=== PATIENT | female | born 1985 | race Caucasian/White ===

== ENCOUNTER 2025-01-09 16:52 | Observation (INO) | payer BC, SELFPAY ==
--- NOTE | ~2025-01-09 | XR_ITS ---
XR chest 1V portable Ordering provider: Marsha Rashid PA-C History: 39 years Female with . n/v/d, cp . Comparison: None. FINDINGS: MEDIASTINUM: The cardiac silhouette is not enlarged. LUNGS: No infiltrates, effusions or pneumothorax. OTHER: No free air under the diaphragm. IMPRESSION: No acute cardiopulmonary pathology. Reviewed, dictated and finalized at location A.
--- NOTE | ~2025-01-09 | CT_ITS ---
CT abdomen pelvis w con Ordering provider: Marsha Rashid PA-C History: 39 years Female with . lower abd pain, n/v/d . Comparison: None. Technique: CT abdomen and pelvis with IV and without oral contrast. Automated exposure control and it erative reconstruction technique were employed. The dose-length product was 1590.05 mGy-cm. 100 mL Om nipaque 350 was given IV Findings: VISUALIZED LOWER CHEST: Normal. UPPER ABDOMINAL ORGANS: Liver: Fat infiltration. Hepatomegaly. Gallbladder: Status post cholecystectomy Spleen: Normal. Stomach/duodenum: Normal. Pancreas: Normal. Adrenals: Normal. Kidneys: Normal. PELVIC ORGANS: The bladder is underfilled. BOWEL AND MESENTERY: Colon: No evidence of diverticulitis.. Normal appendix. Small Bowel: Normal. No obstruction. Peritoneum/mesentery: No free air or free fluid. No mesenteric lymphadenopathy. Small mesenteric lymp h nodes noted. RETROPERITONEUM: Normal aorta. No retroperitoneal lymphadenopathy. MUSCULOSKELETAL: Superficial soft tissues: The superficial soft tissues are normal. Bones: Normal spine. IMPRESSION: 1. No evidence of appendicitis, diverticulitis or intestinal obstruction. 2. Fat infiltration of the liver. Hepatomegaly. Reviewed, dictated and finalized at location A.
[2025-01-09 17:10] VITALS: BP 157/130; PULSE 112; RESP 25; TEMP 36.3; O2SAT 100
--- NOTE | 2025-01-09 17:14 | ECG_ITS ---
Test Date: 2025-01-09 17:24:42 Measurements Intervals [place] Rate: 100 P: 20 MT: 155 QRS: 20 QRSD: 89 T: 47 QT: 349 QTc: 452 Interpretive Statements SINUS TACHYCARDIA POSSIBLE LEFT ATRIAL ENLARGEMENT LOW QRS VOLTAGE IN PRECORDIAL LEADS BORDERLINE R WAVE PROGRESSION, ANTERIOR LEADS BORDERLINE ST ABNORMALITY- ANTEROLAT/INF LEADS BASELINE ARTIFACT- II, III, AVR, AVL, AVF, V2-V4 BORDERLINE ECG No previous ECG available for comparison Electronically Signed On 01-09-2025 19:53:56 CDT by Brendan Roy D.O.
--- NOTE | 2025-01-09 17:26 | ED.NAVMDI ---
HPI - Nausea/Vomiting/Diarrhea General Chief complaint: Nausea/Vomiting/Diarrhea <DANICA De Leon Last Filed: 01/09/25 21:58> Stated complaint: N / V <DANICA De Leon Last Filed: 01/09/25 21:58> Time Seen by Provider: 01/09/25 16:57 <DANICA De Leon Last Filed: 01/09/25 21:58> Source: patient <DANICA De Leon Last Filed: 01/09/25 21:58> Mode of arrival: EMS <DANICA De Leon Last Filed: 01/09/25 21:58> Limitations: no limitations <DANICA De Leon Last Filed: 01/09/25 21:58> History of Present Illness HPI Narrative: Patient is a 39-year-old female, past medical history of hypertension, POTS, who presents the ED via EMS with report of nausea, vomiting, diarrhea. Patient reports she was drinking a coffee from [employer] this afternoon when she suddenly began having nausea, vomiting, diarrhea around 2:00 p.m.. Has had multiple episodes of both. Reports lower abdominal pain, diaphoresis. Began complaining of chest pain upon arrival to the ED. Denies shortness of breath. Denies fevers, sick contacts. States her son has been sick with respiratory symptoms. Patient had influenza 2 weeks ago. <DANICA De Leon Last Filed: 01/09/25 21:58> Related Data Allergies/Adverse reactions: Allergies Allergy/AdvReac Type Severity Reaction Status Date / Time ketorolac (From Toradol) Allergy Hives Verified 01/09/25 20:36 <DANICA De Leon Last Filed: 01/09/25 21:58> Review of Systems Review of Systems: All systems reviewed & are unremarkable except as noted in HPI. <DANICA De Leon Last Filed: 01/09/25 21:58> All systems reviewed & are unremarkable except as noted in HPI and below <DANICA De Leon Last Filed: 01/09/25 21:58> Exam Narrative: GENERAL: Ill-appearing, morbidly obese with BMI of 42.0, in mild acute distress. Actively vomiting on exam. HEAD: Normocephalic, atraumatic. RESPIRATORY: Airway patent, respirations nonlabored. Clear to auscultation bilaterally, no rales, rhonchi, wheezing. CARDIOVASCULAR: Regular rate and rhythm without murmurs, rubs, or gallops. ABDOMINAL: Soft, mild diffuse tenderness throughout lower abdomen, epigastric region. No rebound. Nondistended. Normoactive BS. MUSCULOSKELETAL: Moves all extremities. No gross deformities. SKIN: Warm, dry, mildly diaphoretic NEURO: A&O X3. Speech clear. Cranial nerves II-XII grossly intact. Steady gait. No ataxic movements. PSYCHIATRIC: Appropriate mood and affect. Normal interaction. <DANICA De Leon Last Filed: 01/09/25 21:58> Course PULP AND PAPER TESTER/PA Physician Supervision I agree with midlevel documentation; I performed the medical decision making component of this evaluation. <Paulina Tejada MD - Last Filed: 01/09/25 21:28> Vital Signs Vital signs: Vital Signs Temperature 97.4 F L 01/09/25 17:10 Pulse Rate 112 H 01/09/25 17:10 Respiratory Rate 25 H 01/09/25 17:10 Blood Pressure 157/130 H 01/09/25 17:10 Pulse Oximetry 100 01/09/25 17:10 Oxygen Delivery Room Air 01/09/25 17:10 Temperature 97.4 F L 01/09/25 17:10 Pulse Rate 99 01/09/25 20:01 Respiratory Rate 20 01/09/25 20:01 Blood Pressure 143/93 H 01/09/25 20:01 Pulse Oximetry 97 01/09/25 20:01 Oxygen Delivery Room Air 01/09/25 17:10 <Marsha Rashid PA-C - Last Filed: 01/09/25 21:58> Vital Signs Temperature 97.4 F L 01/09/25 17:10 Pulse Rate 112 H 01/09/25 17:10 Respiratory Rate 25 H 01/09/25 17:10 Blood Pressure 157/130 H 01/09/25 17:10 Pulse Oximetry 100 01/09/25 17:10 Oxygen Delivery Room Air 01/09/25 17:10 Temperature 97.4 F L 01/09/25 17:10 Pulse Rate 99 01/09/25 20:01 Respiratory Rate 20 01/09/25 20:01 Blood Pressure 143/93 H 01/09/25 20:01 Pulse Oximetry 97 01/09/25 20:01 Oxygen Delivery Room Air 01/09/25 17:10 <Paulina Tejada MD - Last Filed: 01/09/25 21:28> MDM - Nausea/Vomiting/Diarrhea MDM Narrative Medical decision making narrative: Patient presented to ED with sudden onset of nausea, vomiting, diarrhea that began this afternoon. Patient actively vomiting upon my exam. Tachycardic, tachypneic. Afebrile. Oxygen stable on room air. Fluids initiated. Zofran ordered. EKG with some nonspecific ST changes, minimal ST depression. No STEMI. Baseline troponin undetectable. Cbc with white blood cell count of 29.1. 80% neutrophils, 4% bands. Likely in part hemoconcentrated with elevated hemoglobin, thrombocytosis. CMP with evidence of dehydration, bicarb 12, anion gap of 24. Kidney function is stable. Blood glucose 190. Lactic acid elevated to 4.7. Fluids are ongoing. Magnesium was borderline, given IV replacement. Alk phos mildly elevated, LFTs overwise WNL. Normal lipase. C diff testing resulted negative. Stool culture was obtained and pending. Viral swabs negative. Chest x-ray was clear. CT scan of abdomen/pelvis was obtained and without acute abnormality. Suspicious for gastroenteritis picture. Given severity of dehydration with ongoing nausea, inability to keep down food or drink, will admit for further evaluation and hydration. Continuous fluids started. Discussed case with Dr. Lemons, hospitalist, accepted patient for admission. Patient in agreement with plan and admission. <Marsha Rashid PA-C - Last Filed: 01/09/25 21:58> Medical Records Attestation: I reviewed the patient's medical records. <Marsha Rashid PA-C - Last Filed: 01/09/25 21:58> Lab Data Attestation: I reviewed the patient's lab results. <Marsha Rashid PA-C - Last Filed: 01/09/25 21:58> Result diagrams: 01/09/25 17:37 01/09/25 20:44 <Marsha Rashid PA-C - Last Filed: 01/09/25 21:58> Labs: Lab Results 01/09/25 01/09/25 01/09/25 Range/Units 17:37 18:04 18:40 WBC 29.1 H (4.5-10.0) K/mm3 RBC 6.21 H (4.2-5.4) M/mm3 Hgb 17.2 H (12.0-15.0) g/dL Hct 53.3 H (37.0-47.0) % MCV 85.8 (80-100) fl MCH 27.7 (26-34) pg MCHC 32.3 (32-36) g/dl RDW 13.5 (11.5-14.5) % Plt Count 417 H (150-375) k/mm3 MPV 9.4 (7.4-10.4) fl Immature Gran % (Auto) Not Reportable Neut % (Auto) Not Reportable Lymph % (Auto) Not Reportable [place] % (Auto) Not Reportable Eos % (Auto) Not Reportable Baso % (Auto) Not Reportable Lymph # (Auto) Not Reportable [place] # (Auto) Not Reportable Eos # (Auto) Not Reportable Baso # (Auto) Not Reportable Abs Immat Gran (auto) Not Reportable Absolute Neuts (auto) Not Reportable Absolute Nucleated RBC Not Reportable Total Counted 100 Neutrophils % (Manual) 80 H (46-73) % Band Neutrophils % 4 (0-6) % Lymphocytes % (Manual) 12.0 L (18-44) % Monocytes % (Manual) 1 L (3-9) % Eosinophils % (Manual) 2 (0-4) % Basophils % (Manual) 1 (0-1) % Nucleated RBC % Not Reportable Abs Neuts (Manual) 24.44 H (1.7-7.2) K/mm3 Abs Lymphs (Manual) 3.49 (1.1-4.5) K/mm3 Abs Monocytes (Manual) 0.29 (0.1-0.90) K/mm3 Absolute Eos (Manual) 0.58 H (0.02-0.50) K/mm3 Abs Basophils (Manual) 0.29 H (0.0-0.1) K/mm3 Platelet Estimate Increased (Adequate) Schistocytes None seen Sodium 138 (137-145) mmol/L Potassium 3.8 (3.4-5.0) mmol/L Chloride 102 (98-107) mmol/L Carbon Dioxide 12 L (22-30) mmol/L Anion Gap 24 H (4-12) mmol/L BUN 23 H (7-17) mg/dL Creatinine 0.81 (0.7-1.0) mg/dL Estim Creat Clear Calc 118 ml/min Estimated GFR > 60 (59 - ) Glucose 190 H (65-110) mg/dL Lactic Acid 4.7 H* (0.7-2.0) mmol/L Calcium 10.1 (8.4-10.2) mg/dL Magnesium 1.8 (1.6-2.3) mg/dL Total Bilirubin 0.7 (0.2-1.3) mg/dL AST 28 (14-36) U/L ALT 37 H (6-35) U/L Alkaline Phosphatase 155 H (38-126) U/L Troponin I < 0.012 (0.000-0.034) ng/mL Total Protein 9.0 H (6.3-8.2) g/dL Albumin 5.2 H (3.5-5.1) g/dL Lipase 71 (23-300) U/L Urine Color Dark yellow (Yellow) Urine Appearance Cloudy H (Clear) Urine pH 5.5 (5.0-9.0) Ur Specific [place] 1.031 (1.001-1.035) Urine Protein 3+ H (Negative) mg/dL Urine Glucose (UA) Negative (Negative) mg/dL Urine Ketones 2+ H (Negative) mg/dL Ur Blood (Man) Negative (Negative) Urine Nitrate Negative (Negative) Urine Bilirubin Negative (Negative) Urine Urobilinogen 1.0 (<2.0) mg/dL Add Ur Microanalysis Reviewed Leukocyte Esterase Rfl Negative (Negative) IQRA/UL Urine RBC 3-5 H (0-2) /hpf Urine WBC 0-5 (0-3) /hpf Ur Squamous Epith Cells Few (Few) /hpf Urine Bacteria None seen /hpf Urine Casts 6-10 POC Urine HCG, Qual Negative (Negative) C. difficile (PCR) Negative (NEGATIVE) Influenza A (RT-PCR) Negative (Negative) Influenza B (RT-PCR) Negative (Negative) RSV (RT-PCR) Negative (Negative) SARS-CoV-2 RNA (RT-PCR) Negative (Negative) 01/09/25 Range/Units 20:44 WBC (4.5-10.0) K/mm3 RBC (4.2-5.4) M/mm3 Hgb (12.0-15.0) g/dL Hct (37.0-47.0) % MCV (80-100) fl MCH (26-34) pg MCHC (32-36) g/dl RDW (11.5-14.5) % Plt Count (150-375) k/mm3 MPV (7.4-10.4) fl Immature Gran % (Auto) Neut % (Auto) Lymph % (Auto) [place] % (Auto) Eos % (Auto) Baso % (Auto) Lymph # (Auto) [place] # (Auto) Eos # (Auto) Baso # (Auto) Abs Immat Gran (auto) Absolute Neuts (auto) Absolute Nucleated RBC Total Counted Neutrophils % (Manual) (46-73) % Band Neutrophils % (0-6) % Lymphocytes % (Manual) (18-44) % Monocytes % (Manual) (3-9) % Eosinophils % (Manual) (0-4) % Basophils % (Manual) (0-1) % Nucleated RBC % Abs Neuts (Manual) (1.7-7.2) K/mm3 Abs Lymphs (Manual) (1.1-4.5) K/mm3 Abs Monocytes (Manual) (0.1-0.90) K/mm3 Absolute Eos (Manual) (0.02-0.50) K/mm3 Abs Basophils (Manual) (0.0-0.1) K/mm3 Platelet Estimate (Adequate) Schistocytes Sodium 136 L (137-145) mmol/L Potassium 4.1 (3.4-5.0) mmol/L Chloride 106 (98-107) mmol/L Carbon Dioxide 16 L (22-30) mmol/L Anion Gap 14 H (4-12) mmol/L BUN 23 H (7-17) mg/dL Creatinine 0.61 L (0.7-1.0) mg/dL Estim Creat Clear Calc 154 ml/min Estimated GFR > 60 (59 - ) Glucose 99 (65-110) mg/dL Lactic Acid 2.4 H (0.7-2.0) mmol/L Calcium 8.7 (8.4-10.2) mg/dL Magnesium (1.6-2.3) mg/dL Total Bilirubin (0.2-1.3) mg/dL AST (14-36) U/L ALT (6-35) U/L Alkaline Phosphatase (38-126) U/L Troponin I (0.000-0.034) ng/mL Total Protein (6.3-8.2) g/dL Albumin (3.5-5.1) g/dL Lipase (23-300) U/L Urine Color (Yellow) Urine Appearance (Clear) Urine pH (5.0-9.0) Ur Specific [place] (1.001-1.035) Urine Protein (Negative) mg/dL Urine Glucose (UA) (Negative) mg/dL Urine Ketones (Negative) mg/dL Ur Blood (Man) (Negative) Urine Nitrate (Negative) Urine Bilirubin (Negative) Urine Urobilinogen (<2.0) mg/dL Add Ur Microanalysis Leukocyte Esterase Rfl (Negative) IQRA/UL Urine RBC (0-2) /hpf Urine WBC (0-3) /hpf Ur Squamous Epith Cells (Few) /hpf Urine Bacteria /hpf Urine Casts POC Urine HCG, Qual (Negative) C. difficile (PCR) (NEGATIVE) Influenza A (RT-PCR) (Negative) Influenza B (RT-PCR) (Negative) RSV (RT-PCR) (Negative) SARS-CoV-2 RNA (RT-PCR) (Negative) <Marsha Rashid PA-C - Last Filed: 01/09/25 21:58> Lab Results 01/09/25 01/09/25 01/09/25 Range/Units 17:37 18:04 18:40 WBC 29.1 H (4.5-10.0) K/mm3 RBC 6.21 H (4.2-5.4) M/mm3 Hgb 17.2 H (12.0-15.0) g/dL Hct 53.3 H (37.0-47.0) % MCV 85.8 (80-100) fl MCH 27.7 (26-34) pg MCHC 32.3 (32-36) g/dl RDW 13.5 (11.5-14.5) % Plt Count 417 H (150-375) k/mm3 MPV 9.4 (7.4-10.4) fl Immature Gran % (Auto) Not Reportable Neut % (Auto) Not Reportable Lymph % (Auto) Not Reportable [place] % (Auto) Not Reportable Eos % (Auto) Not Reportable Baso % (Auto) Not Reportable Lymph # (Auto) Not Reportable [place] # (Auto) Not Reportable Eos # (Auto) Not Reportable Baso # (Auto) Not Reportable Abs Immat Gran (auto) Not Reportable Absolute Neuts (auto) Not Reportable Absolute Nucleated RBC Not Reportable Total Counted 100 Neutrophils % (Manual) 80 H (46-73) % Band Neutrophils % 4 (0-6) % Lymphocytes % (Manual) 12.0 L (18-44) % Monocytes % (Manual) 1 L (3-9) % Eosinophils % (Manual) 2 (0-4) % Basophils % (Manual) 1 (0-1) % Nucleated RBC % Not Reportable Abs Neuts (Manual) 24.44 H (1.7-7.2) K/mm3 Abs Lymphs (Manual) 3.49 (1.1-4.5) K/mm3 Abs Monocytes (Manual) 0.29 (0.1-0.90) K/mm3 Absolute Eos (Manual) 0.58 H (0.02-0.50) K/mm3 Abs Basophils (Manual) 0.29 H (0.0-0.1) K/mm3 Platelet Estimate Increased (Adequate) Schistocytes None seen Sodium 138 (137-145) mmol/L Potassium 3.8 (3.4-5.0) mmol/L Chloride 102 (98-107) mmol/L Carbon Dioxide 12 L (22-30) mmol/L Anion Gap 24 H (4-12) mmol/L BUN 23 H (7-17) mg/dL Creatinine 0.81 (0.7-1.0) mg/dL Estim Creat Clear Calc 118 ml/min Estimated GFR > 60 (59 - ) Glucose 190 H (65-110) mg/dL Lactic Acid 4.7 H* (0.7-2.0) mmol/L Calcium 10.1 (8.4-10.2) mg/dL Magnesium 1.8 (1.6-2.3) mg/dL Total Bilirubin 0.7 (0.2-1.3) mg/dL AST 28 (14-36) U/L ALT 37 H (6-35) U/L Alkaline Phosphatase 155 H (38-126) U/L Troponin I < 0.012 (0.000-0.034) ng/mL Total Protein 9.0 H (6.3-8.2) g/dL Albumin 5.2 H (3.5-5.1) g/dL Lipase 71 (23-300) U/L Urine Color Dark yellow (Yellow) Urine Appearance Cloudy H (Clear) Urine pH 5.5 (5.0-9.0) Ur Specific [place] 1.031 (1.001-1.035) Urine Protein 3+ H (Negative) mg/dL Urine Glucose (UA) Negative (Negative) mg/dL Urine Ketones 2+ H (Negative) mg/dL Ur Blood (Man) Negative (Negative) Urine Nitrate Negative (Negative) Urine Bilirubin Negative (Negative) Urine Urobilinogen 1.0 (<2.0) mg/dL Add Ur Microanalysis Reviewed Leukocyte Esterase Rfl Negative (Negative) IQRA/UL Urine RBC 3-5 H (0-2) /hpf Urine WBC 0-5 (0-3) /hpf Ur Squamous Epith Cells Few (Few) /hpf Urine Bacteria None seen /hpf Urine Casts 6-10 POC Urine HCG, Qual Negative (Negative) C. difficile (PCR) Negative (NEGATIVE) Influenza A (RT-PCR) Negative (Negative) Influenza B (RT-PCR) Negative (Negative) RSV (RT-PCR) Negative (Negative) SARS-CoV-2 RNA (RT-PCR) Negative (Negative) 01/09/25 Range/Units 20:44 WBC (4.5-10.0) K/mm3 RBC (4.2-5.4) M/mm3 Hgb (12.0-15.0) g/dL Hct (37.0-47.0) % MCV (80-100) fl MCH (26-34) pg MCHC (32-36) g/dl RDW (11.5-14.5) % Plt Count (150-375) k/mm3 MPV (7.4-10.4) fl Immature Gran % (Auto) Neut % (Auto) Lymph % (Auto) [place] % (Auto) Eos % (Auto) Baso % (Auto) Lymph # (Auto) [place] # (Auto) Eos # (Auto) Baso # (Auto) Abs Immat Gran (auto) Absolute Neuts (auto) Absolute Nucleated RBC Total Counted Neutrophils % (Manual) (46-73) % Band Neutrophils % (0-6) % Lymphocytes % (Manual) (18-44) % Monocytes % (Manual) (3-9) % Eosinophils % (Manual) (0-4) % Basophils % (Manual) (0-1) % Nucleated RBC % Abs Neuts (Manual) (1.7-7.2) K/mm3 Abs Lymphs (Manual) (1.1-4.5) K/mm3 Abs Monocytes (Manual) (0.1-0.90) K/mm3 Absolute Eos (Manual) (0.02-0.50) K/mm3 Abs Basophils (Manual) (0.0-0.1) K/mm3 Platelet Estimate (Adequate) Schistocytes Sodium 136 L (137-145) mmol/L Potassium 4.1 (3.4-5.0) mmol/L Chloride 106 (98-107) mmol/L Carbon Dioxide 16 L (22-30) mmol/L Anion Gap 14 H (4-12) mmol/L BUN 23 H (7-17) mg/dL Creatinine 0.61 L (0.7-1.0) mg/dL Estim Creat Clear Calc 154 ml/min Estimated GFR > 60 (59 - ) Glucose 99 (65-110) mg/dL Lactic Acid 2.4 H (0.7-2.0) mmol/L Calcium 8.7 (8.4-10.2) mg/dL Magnesium (1.6-2.3) mg/dL Total Bilirubin (0.2-1.3) mg/dL AST (14-36) U/L ALT (6-35) U/L Alkaline Phosphatase (38-126) U/L Troponin I (0.000-0.034) ng/mL Total Protein (6.3-8.2) g/dL Albumin (3.5-5.1) g/dL Lipase (23-300) U/L Urine Color (Yellow) Urine Appearance (Clear) Urine pH (5.0-9.0) Ur Specific [place] (1.001-1.035) Urine Protein (Negative) mg/dL Urine Glucose (UA) (Negative) mg/dL Urine Ketones (Negative) mg/dL Ur Blood (Man) (Negative) Urine Nitrate (Negative) Urine Bilirubin (Negative) Urine Urobilinogen (<2.0) mg/dL Add Ur Microanalysis Leukocyte Esterase Rfl (Negative) IQRA/UL Urine RBC (0-2) /hpf Urine WBC (0-3) /hpf Ur Squamous Epith Cells (Few) /hpf Urine Bacteria /hpf Urine Casts POC Urine HCG, Qual (Negative) C. difficile (PCR) (NEGATIVE) Influenza A (RT-PCR) (Negative) Influenza B (RT-PCR) (Negative) RSV (RT-PCR) (Negative) SARS-CoV-2 RNA (RT-PCR) (Negative) <Paulina Tejada MD - Last Filed: 01/09/25 21:28> Imaging Data Attestation: I personally reviewed and interpreted this imaging study as follows: <Marsha Rashid PA-C - Last Filed: 01/09/25 21:58> Radiologist's impression: ITS Impressions Chest X-Ray 01/09/25 17:50 IMPRESSION: No acute cardiopulmonary pathology. Abdomen/Pelvis CT 01/09/25 20:12 IMPRESSION: 1. No evidence of appendicitis, diverticulitis or intestinal obstruction. 2. Fat infiltration of the liver. Hepatomegaly. <Marsha Rashid PA-C - Last Filed: 01/09/25 21:58> ECG Data EKG #1: Attestation: I personally reviewed and interpreted this ECG as follows: <Marsha Rashid PA-C - Last Filed: 01/09/25 21:58> ECG completion date: 01/09/25 <DANICA De Leon Last Filed: 01/09/25 21:58> ECG completion time: 17:24 <DANICA De Leon Last Filed: 01/09/25 21:58> EKG Interpretation: tachycardia (100), sinus rhythm and non-specific ST changes <Marsha Rashid PA-C - Last Filed: 01/09/25 21:58> Discharge Plan Discharge Clinical Impression: Gastroenteritis, Dehydration, Lactic acidosis Nausea and vomiting Qualifiers: Vomiting type: unspecified Qualified Code(s): R11.2 - Nausea with vomiting, unspecified Leukocytosis Qualifiers: Leukocytosis type: unspecified Qualified Code(s): D72.829 - Elevated white blood cell count, unspecified <Marsha Rashid PA-C - Last Filed: 01/09/25 21:58> Patient Disposition: Still a Patient <DANICA De Leon Last Filed: 01/09/25 21:58> Condition: Stable <DANICA De Leon Last Filed: 01/09/25 21:58>
[2025-01-09] MEDS: FAMOTIDINE 20 MG/2 ML VIAL IV PUSH (17:36)
[2025-01-09] MEDS: ONDANSETRON INJ 4 MG/2 ML VIAL IV PUSH ×2 (17:37→20:56)
[2025-01-09] MEDS: SODIUM CHLORIDE 0.9% IV 1,000 ML 999 ML IV CONT ×2 (17:37→18:37)
[2025-01-09 17:46] LABS: Hematocrit 53.3 % (37.0-47.0); Hemoglobin 17.2 g/dL (12.0-15.0); Mean Corpuscular HGB Conc 32.3 g/dl (32-36); Mean Corpuscular Hemoglobin 27.7 pg (26-34); Mean Corpuscular Volume 85.8 fl (80-100); Mean Platelet Volume 9.4 fl (7.4-10.4); Platelet Count Result 417 k/mm3 (150-375); Red Blood Count 6.21 M/mm3 (4.2-5.4); Red Cell Distribution Width 13.5 % (11.5-14.5); White Blood Count 29.1 K/mm3 (4.5-10.0)
[2025-01-09 18:01] LABS: Lactic Acid Reflex 4.7 mmol/L (0.7-2.0)
[2025-01-09 18:03] LABS: Albumin Level 5.2 g/dL (3.5-5.1); Alkaline Phosphatase 155 U/L (38-126); Aspartate Amino Transferase 28 U/L (14-36); Bilirubin,Total 0.7 mg/dL (0.2-1.3); Blood Urea Nitrogen 23 mg/dL (7-17); Calcium 10.1 mg/dL (8.4-10.2); Carbon Dioxide 12 mmol/L (22-30); Chloride 102 mmol/L (98-107); Estimated CRCL calculation 118 ml/min; Estimated Glomerular Filt Rate > 60; Glucose 190 mg/dL (65-110); Lipase 71 U/L (23-300); Magnesium 1.8 mg/dL (1.6-2.3); Potassium 3.8 mmol/L (3.4-5.0)
[2025-01-09 18:07] LABS: Band Neutrophils Percent 4 % (0-6); Basophils Absolute Manual 0.29 K/mm3 (0.0-0.1); Basophils Percent Manual 1 % (0-1); Eosinophils Absolute Manual 0.58 K/mm3 (0.02-0.50); Eosinophils Percent Manual 2 % (0-4); Lymphocytes Absolute Manual 3.49 K/mm3 (1.1-4.5); Monocytes Absolute Manual 0.29 K/mm3 (0.1-0.90); Monocytes Percent Manual 1 % (3-9); Neutrophils Absolute Manual 24.44 K/mm3 (1.7-7.2); Neutrophils Percent Manual 80 % (46-73); Total Cells Counted 100
[2025-01-09 18:08] LABS: Platelet Estimate Increased (Adequate); Schistocytes None Seen; Troponin I < 0.012 ng/mL (0.000-0.034)
[2025-01-09 18:12] LABS: Alanine Aminotransferase 37 U/L (6-35); Anion Gap 24 mmol/L (4-12); Sodium 138 mmol/L (137-145)
[2025-01-09 18:23] LABS: Influenza A QL RT-PCR Negative (Negative); Influenza B QL RT-PCR Negative (Negative); RSV RNA, RT-PCR Negative (Negative); SARS-CoV-2 RNA PCR Negative (Negative)
[2025-01-09 18:27] LABS: Add Urine Microscopic? YES; Appearance Urine Cloudy (Clear); Bacteria Urine None Seen /hpf; Bilirubin Urine Negative (Negative); Blood Urine Negative (Negative); Color Urine Dark Yellow (Yellow); Glucose Urine UA Negative (Negative); Ketones Urine 2+ mg/dL (Negative); Leukocyte Esterase Ur Negative LEU/UL (Negative); Need Manual Microscopic Reviewed; Nitrate Urine Negative (Negative); Protein Urine 3+ mg/dL (Negative); Specific Grav Ur 1.031 (1.001-1.035); Squamous Epithelial Cell Urine Few /hpf (Few); WBC Urine 0-5 /hpf (0-3); pH Urine 5.5 (5.0-9.0)
[2025-01-09 18:34] LABS: Toxigenic C. Diff NEGATIVE (NEGATIVE)
--- OUTSIDE RECORDS SUMMARY | 2025-01-09 18:34 | XMS_ITS | Encounter Summary ---
Author Organization [facility] Address [address] [place] [address] Care Team Providers Care [place] Name Role Phone Sol Harvey FEDERICA Primary Care Provider [phone] Syeda Baires UROGYNECOLOGY PHYSICIAN Unavailable [phone] Reason for Visit * Reason Onset Date Comments Results 04/30/2024 Encounter Details Date Type Department Care Team (Late st Contact Info) Description 04/30/2024 Neurodyn Message Enc [facility] [address] [place], [place] [id number] Ebenezer Lynn MD [facility]. [facility] [address] [place], [place] [id number] Monitor Social History Tobacco Use Types Packs/Day Years Used Date Smoking Tobacco: Never Passive Smoke Exposure: Never Smokeless Tobacco: Never Alcohol Use Standard Drinks/Week Comments Not Currently 0 (1 standard drink = 0.6 oz pur e alcohol) 1-2 drinks per year max AUDIT-C Answer Date Recorded Frequency of Alcohol Consumption Never 09/24/2019 Average Number of Drinks Not on file 019 Frequency of Binge Drinking Not on file 08/28 PHQ-2 Answer Date Recorded Patient Health Questionnaire-2 Score 0 11/04/2023 Comments No Sex and Gender Information Value Date Recorded Sex Assigned at Female 10/15/2024 8:17 AM SCIENTIFIC RESEARCH ASSOCIATE Legal Sex Female 6:09 PM CDT Gender Identity Female 02/13/2022 1:37 PM CDT Sexual Orientation Straight 02/13/2022 1: 37 PM CDT documented as of this encounter Progress Notes * Sangeeta Lyons RN - 05/01/2024 11:48 AM CDT Symptomatic sinus tachycardia noted. Above message from Dr. Lynn. ST. Offer low dose Toprol XL 12.5mg daily if she would like. Will need to hold prior to stress testing. Above message from Lucy PATEL. I left a voicemail for the patient to call our office. The office number and my extension were provided. 12:41pm - I informed the patient of the above information from Dr. Lynn and Sol PEREZ. I informed the patient that Toprol will help lower the HR but could lower BP. I instructed the patient to monitor for increase in fatigue. I informed the patient that she may take Metoprolol in the morning or at night. I instructed the patient to hold Metoprolol 24 hours prior to her stress test. The patient verbalized understanding and had no further questions. Message to the secretary to board of commissioners. documented in this encounter Plan of Treatment Upcoming Encounters Date Type Department Care Team (Late st Contact Info) Description 01/15/2025 1:00 PM CDT Office Visit [facility] Multispecialty Care - [facility] [address] [place] [address] Sol Harvey FNP [address] [place] [address] Karin Lazo NP [address] [facility] [address] [place] [address] documented as of this encounter Visit Diagnoses Not on filedocumented in this encounter Additional Health Concerns Infection Onset Date Last Indicated Resolved Time COVID-19 Rule Out 07/03/2024 07/03/2024 07/03/2024 11:34 AM CDT COVID-19 Rule Out 07/03/2024 07/03/2024 07/05/2024 1:09 AM CDT Assessment Noted Time PHQ-9 Depression Total Score: 0 11/04/19 24 1:33 PM SCIENTIFIC RESEARCH ASSOCIATE documented as of this encounter Care Teams [place] Relationship Specialty Start Date End Date Sol Harvey FNP [address] [place] [address] PCP - General Nurse Practitioner Family 09/21/19 Syeda Baires NP [address] [place], [place] [address] [place] [address] NURSE PRACTITIONER 09/21/19 documented as of this encounter
[2025-01-09] MEDS: MAGNESIUM SULF 2 GM/WATER 50ML 2 GM/50 ML BAG IVPB (18:36)
--- OUTSIDE RECORDS SUMMARY | 2025-01-09 18:36 | XMS_ITS | Encounter Summary ---
Author Organization [facility] Address [address] [place] [address] Care Team Providers Care Clinical Engineering Manager Name Role Phone Sol Harvey Primary Care Provider Syeda Baires RESEARCH PROFESSOR OF BIOSTATISTICS Unavailable [phone] Encounter Details Date Type Department Care Team (Late st Contact Info) Description 01/17/2023 ProspectWiset Message Enc [facility] Family & Internal Medicine [facility] [address] [place] [address] Sol Harvey FNP [address] [place] [address] Ear pain Social History Tobacco Use Types Packs/Day Years Used Date Smoking Tobacco: Never Smokeless Tobacco: Never Alcohol Use Standard Drinks/Week Comments No 0 (1 standard drink = 0.6 oz pur e alcohol) AUDIT-C Answer Date Recorded Frequency of Alcohol Consumption Never 09/24/2019 Average Number of Drinks Not on file 019 Frequency of Binge Drinking Not on file 08/28 PHQ-2 Answer Date Recorded Patient Health Questionnaire-2 Score 0 12/06/2022 Comments No Sex and Gender Information Value Date Recorded Sex Assigned at Female 10/15/2024 8:17 AM LOAD BLOCKER Legal Sex Female 6:09 PM CDT Gender Identity Female 02/13/2022 1:37 PM CDT Sexual Orientation Straight 02/13/2022 1: 37 PM CDT COVID-19 Exposure Response Date Recorded In the last 10 days, have yo u been in contact with someone who was confirmed or suspected to have Coronavirus/COVID-19? No / Unsure 12/21/2022 9:46 AM CDT documented as of this encounter Plan of Treatment Upcoming Encounters Date Type Department Care Team (Late st Contact Info) Description 01/15/2025 1:00 PM CDT Office Visit [facility] Multispecialty Care - [facility] [address] [facility] [place] [address] Sol Harvey FNP [address] [place] [address] Karin Lazo NP [address] [facility] [address] [place] [address] documented as of this encounter Visit Diagnoses Not on filedocumented in this encounter Additional Health Concerns Infection Onset Date Last Indicated Resolved Time COVID-19 Rule Out 08/15/2023 08/15/2023 08/15/2023 9:04 AM LOAD BLOCKER COVID-19 Rule Out 07/03/2024 07/03/2024 07/03/2024 11:34 AM CDT COVID-19 Rule Out 07/03/2024 07/03/2024 07/05/2024 1:09 AM CDT Assessment Noted Time PHQ-9 Depression Total Score: 0 12/07/19 11:42 AM CDT documented as of this encounter Care Teams Clinical Engineering Manager Relationship Specialty Start Date End Date Sol Harvey FNP [address] [place] [address] PCP - General Nurse Practitioner Family 09/21/19 Syeda Baires NP [address] [place] [address] NURSE PRACTITIONER 09/21/19 documented as of this encounter
--- OUTSIDE RECORDS SUMMARY | 2025-01-09 18:36 | XMS_ITS | Clinical Summary ---
Author Organization [facility] Address [address] [place] [address] Phone Care Team Providers Care Manager Cosmetics Name Role Phone Reginaldo Lopez MD Primary Care Provider Allergies Active Allergy Reactions Criticality Noted Date Comments Etodolac Rash Medium 12/16/2016 Medications albuterol HFA (VENTOLIN HFA) 90 mcg/actuation inhaler Inhale. Active pantoprazole DR (PROTONIX) 40 mg EC tablet daily. Active busPIRone (BUSPAR) 30 mg tablet Take 1 tablet (30 mg total) by mouth 2 (two) times a day 4 Active clonazePAM (KlonoPIN) 0.5 mg tablet Take 1 tablet (0.5 mg total) by mouth 2 (two) times a day as needed 4 Active hydrOXYzine (ATARAX) 25 mg tablet Take 1 tablet (25 mg total) by mouth every 8 (eight) hours as needed 4 Active ipratropium-alb uteroL (DUO-NEB) 0.5-2.5 mg/3 mL nebulizer solution INHALE THE CONTENTS OF 1 VIAL VIA NEBULIZATION ROUTE EVERY 6 HOURS NEEDED 1 Active propranoloL (INDERAL) 10 mg tablet Take 1 tablet (10 mg total) by mouth 2 (two) times a day 4 Active rizatriptan (MAXALT) 10 mg tablet TAKE 1 TABLET BY MOUTH NEEDED FOR MIGRAINE.MAY REPEAT IN 2 HOURS IF NEEDED. MAX 2 TABS/24HOURS 4 Active sertraline (ZOLOFT) 100 mg tablet Take 1 tablet (100 mg total) by mouth early childhood education instructor before breakfast 4 Active triamcinolone (KENALOG) 0.1 % ointment Apply topically 2 (two) times a day 4 Active venlafaxine XR (EFFEXOR-XR) 75 mg 24 hr capsule Take 1 capsule (75 mg total) by mouth every morning Active lisinopril-hydr oCHLOROthiazide (ZESTORETIC) 20-12.5 mg per tablet Take 1 tablet by mouth daily 4 Active ergocalciferol (VITAMIN D) 50,000 unit capsule Active ibuprofen (ADVIL,MOTRIN) 800 mg tablet Take 1 tablet (800 mg total) by mouth every 8 (eight) hours as needed 4 Active metaxalone (SKELAXIN) 800 mg tablet TAKE 1 TABLET BY MOUTH 3 TIMES DAILY NEEDED FOR PAIN AND MUSCLE SPASMS 4 Active metoprolol XL (TOPROL-XL) 25 mg extended release tablet Take 0.5 tablets (12.5 mg total) by mouth daily Active lidocaine viscous (XYLOCAINE) 2 % solutionIndicat ions:Sore throat Apply 10 mL to the mouth or throat every 6 (six) hours as needed (sore throat) May mix with 30 ml of Mylanta 100 mL 5 Active Active Problems Problem Noted Date Diagnosed Date Ptosis of eyelid, left 10/23/2024 Assessment & Plan (10/23/2024 4:37 PM EXCHANGE TROUBLE SHOOTER): Acute onset of intermittent ptosis left eye (OS), as well as increased intermittent diplopia associated with bilateral tingling sensation in the fingers. Stable exam today, normal vision, no ptosis noted left eye (OS) as well as normal pupils. Visual acuity (VA) os improved with new refraction. Pt has 400 arc stereo, and normal color visio ou. Optic nerve (ON) oct is stable from photos, pt does have elevated ONH both eyes (OU) with blurred margins nasally without heme or exudate. Nicole visual field (HVF) were unreliable with non specific defects centrally. Pt has had mysthenia labs which were negative. Due suspicious onh appearance, her acute onset of recent symptoms, history of poorly controlled blood pressure and BMI will send pt to ED to rule out IIH, compressive mass,thromboembolic etiology of increased diplopia and ptosis . Exotropia 03/08/2024 Assessment & Plan (10/23/2024 4:31 PM EXCHANGE TROUBLE SHOOTER): Stable on exam today Monitor Assessment & Plan (03/08/2024 3:27 PM CDT): Mild exo posture that is comitant and stable. Likely decompensation, rarely symptomatic. Defer prism at this time. Send myasthenia labs, TSH normal recently. Monitor closely. 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 RO IIH due to BMI. Assessment & Plan (03/08/2024 3:26 PM CDT): Myopic without disc edema, excellent afferent function and improved blur with new specs. Mild XT component, Base-In measurements are stable and comitant. No EOM restrictions. Recent TSH normal. Will send myasthenia labs out of abundance of caution. Discussed likely mild decompensation, but with rare symptoms will defer prism. Educated should worsen prism or strab sx could be considered. Advised to RTC STAT/ED with any sudden worsening of diplopia, pain on eye movement, vision loss, or new neurologic symptoms. Close f/u otherwise 3mo if myasthenia labs normal Assessment & Plan (12/27/2023 5:06 PM CDT): Myopic in appearance, no disc edema. Excellent afferent function. Monitor closely for changes. Spec Rx old and pt over-minused. No EOM restrictions or visually significant strab measurements. Update specs. 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 Encounters Date Type Department Care Team Description 12/06/2024 Telephone [facility] - [facility] [address] [facility] [address] [place] [address] Rubens Burgosie 10/23/2024 1:30 PM EXCHANGE TROUBLE SHOOTER Office Visit [facility] [address] [place] [address] Kassandra Roldan, OD Ptosis of eyelid, left (Primary Dx); Pseudopapilledema of both optic discs; Exotropia 10/19/2024 Telephone [facility] - [facility] [address] [facility] [address] [place] [phone] Karin Hinds MA Scheduling Appointments 10/17/2024 Telephone [facility] Ophthalmology [facility] [facility] 6th Floor, [address] [facility] [place] [address] Lee Vaughn, OD from Last 3 Months Surgical History Surgery Date Site/Laterality Comments NC CHOLECSTOT/CHOLECSTOST W/ EXPL DRG/RMVL ST1 SPX Cholecystotomy - (Added by TW Conv) BACK SURGERY Back Surgery - (Added by TW Conv) NC DILATION & CURETTAGE DX&/ THER NONOBSTETRIC Dilation And Curettage - (Added by TW Conv) LAPAROSCOPIC ENDOMETRIOSIS FULGURATION Medical History Medical History Date Comments Personal history of other di seases of the respiratory system History of asthma - (Added b y TW Conv) Personal history of other di seases of the circulatory system History of hypertension - (A dded by TW Conv) Personal history of other di seases of the musculoskeletal system and connective tissue History of arthritis - (Adde d by TW Conv) Personal history of other di seases of the musculoskeletal system and connective tissue History of joint pain - (Add ed by TW Conv) High myopia, bilateral OS>OD Pseudopapilledema 2018 Family History Medical History Relation Name Comments Diabetes Father Family history of diabetes mellitus - (Added by TW Conv) Diabetes Mother Family history of diabetes mellitus - (Added by TW Conv) Hypertension Mother Family history of hypertension - (Added by TW Conv) Relation Name Status Comments Father Mother Social History Tobacco Use Types Packs/Day Years Used Date Smoking Tobacco: Never Smokeless Tobacco: Never Alcohol Use Standard Drinks/Week Comments Yes 0 (1 standard drink = 0.6 oz pur e alcohol) rarely Comments No Sex and Gender Information Value Date Recorded Sex Assigned at Not on file Legal Sex Female 11:12 AM EXCHANGE TROUBLE SHOOTER Gender Identity Not on file Sexual Orientation Not on file Obstetrics History Para Term AB IAB SAB Ectopic Multiple Livin g Live Births 1 1 1 1 1 Date Outcome GA Total Labor Labor/2nd/3rd Weight Sex Type Anes PTL Lisa A1 A5 Name Clin 2014 Term 3.459 kg (7 lb 10 oz) M Vag-S pont Epidura l Y Living Complications:None Last Filed Vital Signs Vital Sign Reading Time Taken Comments Blood Pressure 176/109 10/09/2024 10:56 AM EXCHANGE TROUBLE SHOOTER Pulse 96 10/09/2024 10:56 AM EXCHANGE TROUBLE SHOOTER Temperature 36.6 C (97.9 F) 10/09/2024 10:56 AM EXCHANGE TROUBLE SHOOTER Respiratory Rate 18 10/09/2024 10:5 6 AM EXCHANGE TROUBLE SHOOTER Oxygen Saturation 98% 10/09/2024 10: 56 AM EXCHANGE TROUBLE SHOOTER Inhaled Oxygen Concentration - - Weight 125.8 kg (277 lb 4.8 oz) 025 10:56 AM EXCHANGE TROUBLE SHOOTER Height 175.3 cm (5' 9.02 ) 10/09/2024 1 0:56 AM EXCHANGE TROUBLE SHOOTER Body Mass Index 40.93 10/09/2024 10:56 AM EXCHANGE TROUBLE SHOOTER Plan of Treatment Health Maintenance Due Date Last Done Comments Cervical Cancer Screening 1986 Depression Screening 1986 Hepatitis C Screening 1986 Varicella Vaccines (1 of 2 - 13+ 2-dose series) 1999 Hepatitis B Screening 2004 Regular Well Visit/Exam 18-64 2004 Pneumococcal vaccine <65 (1 of 2 - PCV) 2005 Covid-19 Vaccine (3 - 2023- season) 2024 04/20/2021, 03/30/2021 DTaP/Tdap/Td Vaccine (4 - Td or Tdap) 11/08/2028 11/08/2018, 10/31/2014, 10/10/2014 Influenza Vaccine Completed 06/07/2024, , 08/14/2019, Additional history exists HPV Vaccines Aged Out No longer eligi ble based on patient's age to complete this topic Procedures Procedure Name Priority Date/Time Associated Diagnosis Comments NICOLE VISUAL FIELD - OU - BOTH EYES Routine 10/23/2024 4:41 PM EXCHANGE TROUBLE SHOOTER Pseudopapilledema of both optic discs OCT, OPTIC NERVE - OU - BOTH EYES Routine 10/23/2024 4:38 PM EXCHANGE TROUBLE SHOOTER Pseudopapilledema of both optic discs from Last 3 Months Results * Nicole Visual Field - OU - Both Eyes (10/23/2024 4:41 PM EXCHANGE TROUBLE SHOOTER) Pattern Deviation OS 2.35 dB CONTINUUM Pattern Deviation OD 1.46 dB CONTINUUM Mean Deviation OS -2.93 dB CONTINUUM Mean Deviation OD -0.79 dB CONTINUUM Anatomical Region Laterality Modality Head Visual Field Narrative 10/23/2024 4:41 PM EXCHANGE TROUBLE SHOOTER Right Eye Fixation was good. Cooperation was good. Reliability was good. Progression has been stable. Foveal threshold was normal. Findings include normal observations, non-specific defects. Mean Deviation was -0.79 dB. Pattern Deviation was 1.46 dB. Left Eye Fixation was good. Cooperation was good. Reliability was good. Progression has been stable. Foveal threshold was normal. Findings include normal observations, non-specific defects. Mean Deviation was -2.93 dB. Pattern Deviation was 2.35 dB. Notes Stable inferior defect left eye (OS) Non specific central changes both eyes (OU) - most likely stable Kassandra SantosMichael Jamar OD OPHTH VISUAL FIELD Final Result * OCT, Optic Nerve - OU - Both Eyes (10/23/2024 4:38 PM EXCHANGE TROUBLE SHOOTER) RNFL OS 71 micrometers CONTINUUM RNFL OD 87 micrometers CONTINUUM Anatomical Region Laterality Modality Head Optical Coherenc e Tomography Narrative 10/23/2024 4:38 PM EXCHANGE TROUBLE SHOOTER Right Eye Reliability was poor. Temporal progression was stable. Temporal thickness was showing abnormal thinning. Superior progression was stable. Superior thickness was normal. Nasal progression was stable. Nasal thickness was showing abnormal thinning. Inferior progression was stable. Inferior thickness was showing abnormal thinning. Average RNFL thickness 87 micrometers. Left Eye Reliability was poor. Temporal progression was stable. Temporal thickness was normal. Superior progression was stable. Superior thickness was showing abnormal thinning. Nasal progression was stable. Nasal thickness was showing abnormal thinning. Inferior progression was stable. Inferior thickness was normal. Average RNFL thickness 71 micrometers. Notes Stable optic nerve (ON) oct Poor Ss ( 5/10 and 4/10) Kassandra Roldan OD OPHTH TOMOGRAPHY Final Result from Last 3 Months Insurance [employer] ACCESS CHOICE [employer] CHOICE Member Subscriber Plan / Payer ( fective 2023-Present) Name:Sangeeta Vásquez Relation to Subscriber:Spouse Name:KATHY VÁSQUEZ Date of :[birth year]99 (Home) Address: [address] [place] [address] Payer ID:[id number] (NAIC) Type:PDD Group Address: [address] [place] [id number] Care Teams Manager Cosmetics Relationship Specialty Start Date End Date Reginaldo Lopez MD [address] [facility] [address] [place] [id number] PCP - General Family Medicine 10/12/24
--- OUTSIDE RECORDS SUMMARY | 2025-01-09 18:36 | XMS_ITS | Encounter Summary ---
Author Organization [facility] Address [address] [place] [address] Care Team Providers Care Sustainment Logistics Analyst Name Role Phone Sol Harvey Primary Care Provider [phone] Syeda Baires ARCHITECTURE INTERN Unavailable [phone] Encounter Details Date Type Department Care Team (Late st Contact Info) Description 02/24/2021 Adayanat Message Enc [facility] Medical Group Family & Internal Medicine [facility] [address] [place] [address] Sol Harvey FNP [address] [place] [address] RE: FW: Question Social History Tobacco Use Types Packs/Day Years Used Date Smoking Tobacco: Never Smokeless Tobacco: Never Alcohol Use Standard Drinks/Week Comments No 0 (1 standard drink = 0.6 oz pur e alcohol) AUDIT-C Answer Date Recorded Frequency of Alcohol Consumption Never 09/24/2019 Average Number of Drinks Not on file 019 Frequency of Binge Drinking Not on file 08/28 PHQ-2 Answer Date Recorded PHQ-2 Score - If the patient scores above 3, please move on to questions 3-9 4 12/11/2020 Comments No Sex and Gender Information Value Date Recorded Sex Assigned at Female 10/15/2024 8:17 AM CORPORATE CLAIMS EXAMINER Legal Sex Female 6:09 PM CDT Gender Identity Female 02/13/2022 1:37 PM CDT Sexual Orientation Straight 02/13/2022 1: 37 PM CDT COVID-19 Exposure Response Date Recorded In the last month, have you been in contact with someone who was confirmed or suspected to have Coronavirus / COVID-19? No / Unsure 02/10/2021 11:37 AM CDT documented as of this encounter Plan of Treatment Upcoming Encounters Date Type Department Care Team (Late st Contact Info) Description 01/15/2025 1:00 PM CDT Office Visit [facility] Medical Group Multispecialty Care - Health system [address] [facility] [place] [address] Sol Harvey FNP [address] [place] [address] Karin Lazo NP [address] Health system [address] [place] [address] documented as of this encounter Visit Diagnoses Not on filedocumented in this encounter Additional Health Concerns Infection Onset Date Last Indicated Resolved Time COVID-19 Rule Out 08/15/2023 08/15/2023 08/15/2023 9:04 AM CORPORATE CLAIMS EXAMINER COVID-19 Rule Out 07/03/2024 07/03/2024 07/03/2024 11:34 AM CDT COVID-19 Rule Out 07/03/2024 07/03/2024 07/05/2024 1:09 AM CDT Assessment Noted Time PHQ-9 Depression Total Score: 15 2 021 12:22 PM CDT documented as of this encounter Care Teams Sustainment Logistics Analyst Relationship Specialty Start Date End Date Sol Harvey FNP [facility] [place] [address] PCP - General Nurse Practitioner Family 09/21/19 Syeda Baires NP [facility] [place] [address] NURSE PRACTITIONER 09/21/19 documented as of this encounter
--- OUTSIDE RECORDS SUMMARY | 2025-01-09 18:36 | XMS_ITS | Encounter Summary ---
Author Organization [facility] Address [address] [place] [address] Care Team Providers Care Credit Control Assistant Name Role Phone Sol Harvey Primary Care Provider Syeda Baires CAT BREEDER Unavailable [phone] Encounter Details Date Type Department Care Team (Late st Contact Info) Description 02/11/2021 PLAYSTUDIOSt Message Enc [facility] Medical Group Family & Internal Medicine [facility] [address] [place] [address] Sol Harvey FNP [address] [place] [address] RE: Referral Request Social History Tobacco Use Types Packs/Day Years [...] Sex Assigned at Female 10/15/2024 8:17 AM DIRECT SUPPORT PROFESSIONAL CAREGIVER Legal Sex Female 6:09 PM CDT Gender [...] Description 01/15/2025 1:00 PM CDT Office Visit [facility] Medical Group Multispecialty Care - [facility] [address] [facility] [place] [address] Sol Harvey FNP [address] [place] [address] Karin Lazo NP [address] [facility] [address] [place] [address] documented as of this encounter Visit Diagnoses Not on filedocumented in this encounter Additional Health Concerns Infection Onset Date Last Indicated Resolved Time COVID-19 Rule Out 08/15/2023 08/15/2023 08/15/2023 9:04 AM DIRECT SUPPORT PROFESSIONAL CAREGIVER COVID-19 Rule Out 07/03/2024 07/03/2024 07/03/2024 11:34 AM CDT COVID-19 Rule Out 07/03/2024 07/03/2024 07/05/2024 1:09 AM CDT Assessment Noted Time PHQ-9 Depression Total Score: 15 2 021 12:22 PM CDT documented as of this encounter Care Teams Credit Control Assistant Relationship Specialty Start Date End Date Sol Harvey FNP [address] [place] [address] PCP - General Nurse Practitioner Family 09/21/19 Syeda Baires NP [address] [place] [address] NURSE PRACTITIONER 09/21/19 documented as of this encounter
--- OUTSIDE RECORDS SUMMARY | 2025-01-09 18:36 | XMS_ITS | Continuity of Care Document ---
Author Organization [facility] Address [address] [place] [address] [place] [address] Phone Care Team Providers Care Animal Assisted Therapist Name Role Phone Reginaldo Lopez MD Unavailable Unavailable Advance Directives Directive Yes / No Effective Date File Name No Information Encounters Encounter Description Practice Location Reason(s) For Visit Diagnoses Date Provider Providers Copied on Encounter [facility], [address] [place], [id number], [place] tel:[phone] [facility] No Information John Hair. [address] [place], [id number], [place]. tel:[phone] Family History Family Member Type Diagnosis Age At Onset No Information Payers Payer name Insurance type Covered green party ID Authoriza tion(s) No Information Social History Type Description Quantity Date Captured Comments Sex Female Smoking Status No Information Chief Complaint And Reason For Visit No Information Plan Of Treatment Date Type Action Status No Information History Of Present Illness Encounter Date Complaint History Of Prese nt Illness No Information Instructions Date Instruction Additional Infor mation No Information Assessments Type Assessment Date No Information
--- OUTSIDE RECORDS SUMMARY | 2025-01-09 18:36 | XMS_ITS | Encounter Summary ---
Author Organization [facility] Address [facility] [place] [address] Care Team Providers Care Complaint Analyst Name Role Phone Sol Harvey [place] Primary Care Provider [phone] Syeda Baires SUPERVISING BAILIFF Unavailable [phone] Encounter Details Date Type Department Care Team (Late st Contact Info) Description 03/23/2023 Celebrations.comhart Message Enc [facility] Medical Group - [facility] [address] [place] [address] [facility] Provider Air Quality Message Social History Tobacco Use Types Packs/Day Years [...] Sex Assigned at Female 10/15/2024 8:17 AM REVERSE UNIT OPERATOR Legal Sex Female 6:09 PM CDT Gender Identity Female 02/13/2022 1:37 PM CDT Sexual Orientation Straight 02/13/2022 1: 37 PM CDT COVID-19 Exposure Response Date Recorded In the last 10 days, have yo u been in contact with someone who was confirmed or suspected to have Coronavirus/COVID-19? No / Unsure 03/10/2023 12:54 PM CDT documented as of this encounter Plan of Treatment Upcoming Encounters Date Type Department Care Team (Late st Contact Info) Description 01/15/2025 1:00 PM CDT Office Visit [facility] Medical Group Multispecialty Care - [facility] [address] [facility] [place] [address] Sol Harvey FNP [address] [place] [address] Karin Lazo NP [address] [facility] [address] [place] [address] documented as of this encounter Visit Diagnoses Not on filedocumented in this encounter Additional Health Concerns Infection Onset Date Last Indicated Resolved Time COVID-19 Rule Out 08/15/2023 08/15/2023 08/15/2023 9:04 AM REVERSE UNIT OPERATOR COVID-19 Rule Out 07/03/2024 07/03/2024 07/03/2024 11:34 AM CDT COVID-19 Rule Out 07/03/2024 07/03/2024 07/05/2024 1:09 AM CDT Assessment Noted Time PHQ-9 Depression Total Score: 0 12/07/19 23 11:42 AM CDT documented as of this encounter Care Teams Complaint Analyst Relationship Specialty Start Date End Date Sol Harvey FNP [address] [place] [address] PCP - General Nurse Practitioner Family 09/21/19 Syeda Baires NP [address] [place] [address] NURSE PRACTITIONER 09/21/19 documented as of this encounter
--- OUTSIDE RECORDS SUMMARY | 2025-01-09 18:36 | XMS_ITS | Encounter Summary ---
Author Organization [facility] Address [address] [place] [address] Care Team Providers Care Continuity Tester Name Role Phone Sol Harvey Primary Care Provider Syeda Baires INTERNET MARKETING DIRECTOR Unavailable [phone] Encounter Details Date Type Department Care Team (Late st Contact Info) Description 05/07/2021 BEST Logistics Technologyt Message Enc [facility] Medical Group Family & Internal Medicine [facility] [address] [place] [address] Sol Harvey FNP [address] [place] [address] RE: Medication Questions Social History Tobacco Use Types Packs/Day Years [...] 3, please move on to questions 3-9 0 03/20/2021 Comments No Sex and Gender Information Value Date Recorded Sex Assigned at Female 10/15/2024 8:17 AM LOAD TEST MECHANIC Legal Sex Female 6:09 PM CDT Gender Identity Female 02/13/2022 1:37 PM CDT Sexual Orientation Straight 02/13/2022 1: 37 PM CDT documented as of this encounter Plan of Treatment Upcoming Encounters Date Type Department Care Team (Late st Contact Info) Description 01/15/2025 1:00 PM CDT Office Visit [facility] Medical Group Multispecialty Care - [facility] [address] [facility] [place] [address] Sol Harvey FNP [address] [place] [address] Karin Lazo NP [address] [facility] [address] [place] [address] documented as of this encounter Visit Diagnoses Not on filedocumented in this encounter Additional Health Concerns Infection Onset Date Last Indicated Resolved Time COVID-19 Rule Out 08/15/2023 08/15/2023 08/15/2023 9:04 AM LOAD TEST MECHANIC COVID-19 Rule Out 07/03/2024 07/03/2024 07/03/2024 11:34 AM CDT COVID-19 Rule Out 07/03/2024 07/03/2024 07/05/2024 1:09 AM CDT Assessment Noted Time PHQ-9 Depression Total Score: 4 03/20/20 21 9:12 AM CDT documented as of this encounter Care Teams Continuity Tester Relationship Specialty Start Date End Date Sol Harvey FNP [address] [place] [address] PCP - General Nurse Practitioner Family 09/21/19 Syeda Baires NP [address] [place] [address] NURSE PRACTITIONER 09/21/19 documented as of this encounter
--- OUTSIDE RECORDS SUMMARY | 2025-01-09 18:36 | XMS_ITS | Encounter Summary ---
Author Organization [facility] Address [address] [place] [address] Care Team Providers Care Umbrella Supervisor Name Role Phone Sol Harvey Primary Care Provider Syeda Baires PMO CONSULTANT Unavailable [phone] Encounter Details Date Type Department Care Team (Late st Contact Info) Description 09/17/2024 [place] Message Enc [facility] Medical Group Family & Internal Medicine [facility] [address] [place] [address] Sol Harvey FNP [address] [place], [place] [id number] Muscle spasm Social History Tobacco Use Types Packs/Day Years [...] Sex Assigned at Female 10/15/2024 8:17 AM LEG MAN Legal Sex Female 6:09 PM CDT Gender Identity Female 02/13/2022 1:37 PM CDT Sexual Orientation Straight 02/13/2022 1: 37 PM CDT documented as of this encounter Plan of Treatment Upcoming Encounters Date Type Department Care Team (Late st Contact Info) Description 01/15/2025 1:00 PM CDT Office Visit [facility] Medical Group Multispecialty Care - [facility] [address] [facility] [address] [place] [address] Sol Harvey FNP [address] [place] [address] Karin Lazo NP 3 [facility] [address] [place] [address] documented as of this encounter Visit Diagnoses Not on filedocumented in this encounter Additional Health Concerns Assessment Noted Time PHQ-9 Depression Total Score: 0 11/04/19 24 1:33 PM LEG MAN documented as of this encounter Care Teams Umbrella Supervisor Relationship Specialty Start Date End Date Sol Harvey FNP [address] [place] [address] PCP - General Nurse Practitioner Family 09/21/19 Syeda Baires NP [address] [place] [address] NURSE PRACTITIONER 09/21/19 documented as of this encounter
--- OUTSIDE RECORDS SUMMARY | 2025-01-09 18:36 | XMS_ITS | Encounter Summary ---
Author Organization [facility] Address [address] [place] [address] Care Team Providers Care American History Teacher Name Role Phone Sol Harvey FEDERICA Primary Care Provider Syeda Baires MECHANICAL ENGINEERING ADVISOR Unavailable [phone] Encounter Details Date Type Department Care Team (Late st Contact Info) Description 03/23/2021 Aubreyt Message Enc [facility] Medical Group Family & Internal Medicine [facility] [address] [place] [address] Filomena Inman APNP [address] [place] [address] Follow Up/Update Social History Tobacco Use Types Packs/Day Years [...] Sex Assigned at Female 10/15/2024 8:17 AM FORESTRY ENGINEER Legal Sex Female 6:09 PM CDT Gender Identity Female 02/13/2022 1:37 PM CDT Sexual Orientation Straight 02/13/2022 1: 37 PM CDT COVID-19 Exposure Response Date Recorded In the last month, have you been in contact with someone who was confirmed or suspected to have Coronavirus / COVID-19? No / Unsure 03/20/2021 7:39 AM CDT documented as of this encounter Plan of Treatment Upcoming Encounters Date Type Department Care Team (Late st Contact Info) Description 01/15/2025 1:00 PM CDT Office Visit [facility] Medical Group Multispecialty Care - [facility] [address] [facility] [place] [address] Sol Harvey FNP [address] [place] [address] Karin Lazo NP 3 [facility] [address] [place] [address] documented as of this encounter Visit Diagnoses Not on filedocumented in this encounter Additional Health Concerns Infection Onset Date Last Indicated Resolved Time COVID-19 Rule Out 08/15/2023 08/15/2023 08/15/2023 9:04 AM FORESTRY ENGINEER COVID-19 Rule Out 07/03/2024 07/03/2024 07/03/2024 11:34 AM CDT COVID-19 Rule Out 07/03/2024 07/03/2024 07/05/2024 1:09 AM CDT Assessment Noted Time PHQ-9 Depression Total Score: 4 03/20/20 21 9:12 AM CDT documented as of this encounter Care Teams American History Teacher Relationship Specialty Start Date End Date Sol Harvey FNP [address] [place] [address] PCP - General Nurse Practitioner Family 09/21/19 Syeda Baires NP [facility] [place] [address] NURSE PRACTITIONER 09/21/19 documented as of this encounter
--- OUTSIDE RECORDS SUMMARY | 2025-01-09 18:36 | XMS_ITS | Encounter Summary ---
Author Organization [facility] Address [address] [place] [address] Care Team Providers Care Pastry Chef Name Role Phone Sol Harvey FEDERICA Primary Care Provider [phone] Syeda Baires AUTOMATION AND CONTROLS SUPERVISOR Unavailable [phone] Encounter Details Date Type Department Care Team (Late st Contact Info) Description 03/09/2023 Second Genomet Message Enc [facility] Medical Group Multispecialty Care - [facility] [address] [facility], [address] [place] [address] Mary Arias APRN 3 [facility] [address] [place], [place] [id number] Back pain Social History Tobacco Use Types Packs/Day [...] Sex Assigned at Female 10/15/2024 8:17 AM CLAY DRY PRESS HELPER Legal Sex Female 6:09 PM CDT Gender [...] Description 01/15/2025 1:00 PM CDT Office Visit [facility] Medical Group Multispecialty Care - [facility] [address] [facility], [address] [place] [address] Sol Harvey FNP [address] [place] [address] Karin Lazo NP 3 [facility] [address] [place] [address] documented as of this encounter Visit Diagnoses Not on filedocumented in this encounter Additional Health Concerns Infection Onset Date Last Indicated Resolved Time COVID-19 Rule Out 08/15/2023 08/15/2023 08/15/2023 9:04 AM CLAY DRY PRESS HELPER COVID-19 Rule Out 07/03/2024 07/03/2024 07/03/2024 11:34 AM CDT COVID-19 Rule Out 07/03/2024 07/03/2024 07/05/2024 1:09 AM CDT Assessment Noted Time PHQ-9 Depression Total Score: 0 12/07/19 23 11:42 AM CDT documented as of this encounter Care Teams Pastry Chef Relationship Specialty Start Date End Date Sol Harvey FNP [facility] [place] [address] PCP - General Nurse Practitioner Family 09/21/19 Syeda Baires NP [address] [place] [address] NURSE PRACTITIONER 09/21/19 documented as of this encounter
--- OUTSIDE RECORDS SUMMARY | 2025-01-09 18:36 | XMS_ITS | Encounter Summary ---
Author Organization [facility] Address [address] [place] [address] Care Team Providers Care Pbx Technician Name Role Phone Sol Harvey Primary Care Provider Syeda Baires CLIENT ONBOARDING ANALYST Unavailable [phone] Encounter Details Date Type Department Care Team (Late st Contact Info) Description 02/19/2021 [place] [employer] Message Enc [facility] Medical Group Family & Internal Medicine [facility] [address] [place] [address] Sol Harvey FNP [address] [place] [address] RE: FW: Referral Request Social History Tobacco Use Types [...] Sex Assigned at Female 10/15/2024 8:17 AM ROLL FORMING MACHINE SET UP OPERATOR Legal Sex Female 6:09 PM CDT [...] Description 01/15/2025 1:00 PM CDT Office Visit [facility] Medical Group Multispecialty Care - [facility] [address] [facility] [place] [address] Sol Harvey FNP [address] [place] [address] Karin Lazo NP 3 [facility] [address] [place] [address] documented as of this encounter Visit Diagnoses Not on filedocumented in this encounter Additional Health Concerns Infection Onset Date Last Indicated Resolved Time COVID-19 Rule Out 08/15/2023 08/15/2023 08/15/2023 9:04 AM ROLL FORMING MACHINE SET UP OPERATOR COVID-19 Rule Out 07/03/2024 07/03/2024 07/03/2024 11:34 AM CDT COVID-19 Rule Out 07/03/2024 07/03/2024 07/05/2024 1:09 AM CDT Assessment Noted Time PHQ-9 Depression Total Score: 15 12/11/2 021 12:22 PM CDT documented as of this encounter Care Teams Pbx Technician Relationship Specialty Start Date End Date Sol Harvey FNP [facility] [place] [address] PCP - General Nurse Practitioner Family 09/21/19 Syeda Baires NP [facility] [place] [address] NURSE PRACTITIONER 09/21/19 documented as of this encounter
--- OUTSIDE RECORDS SUMMARY | 2025-01-09 18:36 | XMS_ITS | Encounter Summary ---
Author Organization [facility] Address [address] [place] [address] Care Team Providers Care Barrel [place] Name Role Phone Sol Harvey Primary Care Provider [phone] Syeda Baires VISITOR SERVICES ASSISTANT Unavailable [phone] Encounter Details Date Type Department Care Team (Late st Contact Info) Description 12/14/2022 Somany Ceramicst Message Enc [facility] Medical Group Family & Internal Medicine [facility] [address] [place] [address] Sol Harvey FNP [address] [place] [address] Sore throat and neck pain Social History Tobacco Use Types Packs/Day [...] Sex Assigned at Female 10/15/2024 8:17 AM CONTACT CLERK Legal Sex Female 6:09 PM CDT Gender Identity Female 02/13/2022 1:37 PM CDT Sexual Orientation Straight 02/13/2022 1: 37 PM CDT COVID-19 Exposure Response Date Recorded In the last 10 days, have yo u been in contact with someone who was confirmed or suspected to have Coronavirus/COVID-19? No / Unsure 12/15/2022 9:56 AM CDT documented as of this encounter Plan of Treatment Upcoming Encounters Date Type Department Care Team (Late st Contact Info) Description 01/15/2025 1:00 PM CDT Office Visit [facility] Medical Group Multispecialty Care - [facility] [address] [facility] [place] [address] Sol Harvey FNP [address] [place] [address] Karin Lazo NP 3 [facility] [address] [place] [address] documented as of this encounter Visit Diagnoses Not on filedocumented in this encounter Additional Health Concerns Infection Onset Date Last Indicated Resolved Time COVID-19 Rule Out 08/15/2023 08/15/2023 08/15/2023 9:04 AM CONTACT CLERK COVID-19 Rule Out 07/03/2024 07/03/2024 07/03/2024 11:34 AM CDT COVID-19 Rule Out 07/03/2024 07/03/2024 07/05/2024 1:09 AM CDT Assessment Noted Time PHQ-9 Depression Total Score: 0 12/07/19 23 11:42 AM CDT documented as of this encounter Care Teams Barrel [place] Relationship Specialty Start Date End Date Sol Harvey FNP [address] [place] [address] PCP - General Nurse Practitioner Family 09/21/19 Syeda Baires NP [address] [place] [address] NURSE PRACTITIONER 09/21/19 documented as of this encounter
--- OUTSIDE RECORDS SUMMARY | 2025-01-09 18:36 | XMS_ITS | Clinical Summary ---
Author Organization [facility] Address [address] [facility] [place] [address] Care Team Providers Care Supervisor Mapping Name Role Phone Sol Harvey Primary Care Provider [phone] Source Comments [facility],non[facility] Affiliates and Associated Physician Practices is amultiple site organization consisting of ambulatory clinics and hospital sitesin [place], [place], [place] and [place]. This disclosure is being madepursuant to the Care Everywhere program and may not contain all information available regarding this patient. Last updated 18.[facility] Allergies Active Allergy Reactions Criticality Noted Date Comments Etodolac 12/16/2016 Medications * Be aware that medications may not be up to date on this document. Alwaysverify current medications with the patient. Albuterol Sulfate (VENTOLIN HFA IN) Ac tive Cetirizine HCl (ZYRTEC ALLERGY PO) Active Citalopram Hydrobromide (CELEXA PO) Active busPIRone (BUSPAR) 5 MG tablet Take 5 mg by mouth 3 times daily Active labetalol (NORMODYNE; TRANDATE) 200 MG tablet Take 200 mg by mouth every 12 hours Active Active Problems No known active problems Social History Tobacco Use Types Packs/Day Years Used Date Smoking Tobacco: Never Smokeless Tobacco: Never Comments No Sex and Gender Information Value Date Recorded Sex Assigned at Female 07/16/2021 8:47 AM CDT Legal Sex Female 8:16 AM CDT Gender Identity Female 07/16/2021 8:47 AM CDT Sexual Orientation Straight 07/16/2021 8: 47 AM CDT Last Filed Vital Signs Vital Sign Reading Time Taken Comments Blood Pressure 134/86 06/22/2019 8:59 AM CDT Pulse 101 06/22/2019 8:59 AM CDT Temperature 36.9 C (98.4 F) 06/22/2019 8:59 AM CDT Respiratory Rate 16 06/22/2019 8:59 AM CDT Oxygen Saturation 97% 06/22/2019 8:59 AM CDT Inhaled Oxygen Concentration - - Weight 113.4 kg (250 lb) 06/22/2019 8:59 AM CDT Height 175.3 cm (5' 9 ) 06/22/2019 8:59 AM CDT Body Mass Index 36.92 06/22/2019 8:59 AM CDT Plan of Treatment Health Maintenance Due Date Last Done Comments PAP SMEAR 1986 HIV SCREENING 2001 HEPATITIS C SCREENING 08/23/2004 DTAP/TDAP/TD VACCINES (1 - Tdap) 2005 HEPATITIS B VACCINE (1 of 3 - 19+ 3-dose series) 2005 COVID-19 VACCINE (2 - season) 2024 03/30/2021 DEPRESSION SCREENING 09/26/2024 INFLUENZA VACCINE (Season Ended) 2025 08/14/2019, 06/16/2017, 06/15/2017, Additional history exists ZOSTER VACCINE (1 of 2) 2036 HIB VACCINE Aged Out No longer eligi ble based on patient's age to complete this topic HPV VACCINE Aged Out No longer eligi ble based on patient's age to complete this topic MENINGOCOCCAL (Group B) VACCINE SHARED DECISION-MAKING Aged Out No longer eligible based on patient's age to complete this topic MENINGOCOCCAL GROUPS A/C/Y/W VACCINE Aged Out No longer eligible based on patient's age to complete this topic PNEUMOCOCCAL VACCINE Aged Out No long er eligible based on patient's age to complete this topic Insurance [facility] MEDICAID - [facility] OF [facility] Care Teams Supervisor Mapping Relationship Specialty Start Date End Date Sol Harvey APRN-LAURA [address] [place] [address] PCP - General Nurse Practitioner 04/05/24
--- OUTSIDE RECORDS SUMMARY | 2025-01-09 18:36 | XMS_ITS | Encounter Summary ---
Author Organization [facility] Address [address] [place] [address] Care Team Providers Care Absorber Operator Name Role Phone Ginger Harvey Primary Care Provider [phone] Syeda Baires KETTLE CHIPPER Unavailable [phone] Encounter Details Date Type Department Care Team (Late st Contact Info) Description 12/24/2022 [place] Message Enc [facility] Medical Group Family & Internal Medicine [facility] [address] [place] [address] Ginger Harvey FNP [address] [place] [address] Blood test Social History Tobacco Use Types Packs/Day Years [...] Sex Assigned at Female 10/15/2024 8:17 AM ENAMEL APPLIER Legal Sex Female 6:09 PM CDT Gender Identity Female 02/13/2022 1:37 PM CDT Sexual Orientation Straight 02/13/2022 1: 37 PM CDT COVID-19 Exposure Response Date Recorded In the last 10 days, have yo u been in contact with someone who was confirmed or suspected to have Coronavirus/COVID-19? No / Unsure 12/21/2022 9:46 AM CDT documented as of this encounter Progress Notes * Kasia Fisher NP - 12/27/2022 8:02 AM CDT Lab results received. Call placed to patient to discuss lab results. Left voicemail for return call. * FEDERICA Warner - 12/24/2022 3:18 PM CDT Have not seen any * Kasia Fisher NP - 12/24/2022 12:42 PM CDT I have not seen any results come through yet. Were they given to ginger? documented in this encounter Plan of Treatment Upcoming Encounters Date Type Department Care Team (Late st Contact Info) Description 01/15/2025 1:00 PM CDT Office Visit [facility] Medical Group Multispecialty Care - [facility] [address] [facility] [place] [address] Ginger Harvey FNP [address] [place] [address] Karin Lazo NP 3 [facility] [address] [place] [address] documented as of this encounter Visit Diagnoses Not on filedocumented in this encounter Additional Health Concerns Infection Onset Date Last Indicated Resolved Time COVID-19 Rule Out 08/15/2023 08/15/2023 08/15/2023 9:04 AM ENAMEL APPLIER COVID-19 Rule Out 07/03/2024 07/03/2024 07/03/2024 11:34 AM CDT COVID-19 Rule Out 07/03/2024 07/03/2024 07/05/2024 1:09 AM CDT Assessment Noted Time PHQ-9 Depression Total Score: 0 12/07/19 11:42 AM CDT documented as of this encounter Care Teams Absorber Operator Relationship Specialty Start Date End Date Ginger Harvey FNP [address] [place] [address] PCP - General Nurse Practitioner Family 09/21/19 Syeda Baires [facility] [place] [address] NURSE PRACTITIONER 09/21/19 documented as of this encounter
--- OUTSIDE RECORDS SUMMARY | 2025-01-09 18:36 | XMS_ITS | Encounter Summary ---
Author Organization [facility] Address [address] [place] [address] Care Team Providers Care Rn Clinical Resource Name Role Phone Sol Harvey FEDERICA Primary Care Provider [phone] Syeda Baires CONTRACT LOADER Unavailable [phone] Encounter Details Date Type Department Care Team (Late st Contact Info) Description 12/10/2024 [employer] Message Enc [facility] Medical Group Family & Internal Medicine [address] [address] [facility] Social History Tobacco Use Types Packs/Day Years [...] Sex Assigned at Female 10/15/2024 8:17 AM ADMINISTRATIVE LIBRARY ASSISTANT Legal Sex Female 6:09 PM CDT Gender Identity Female 02/13/2022 1:37 PM CDT Sexual Orientation Straight 02/13/2022 1: 37 PM CDT documented as of this encounter Plan of Treatment Upcoming Encounters Date Type Department Care Team (Late st Contact Info) Description 01/15/2025 1:00 PM CDT Office Visit [facility] Medical Group Multispecialty Care - [facility] [address] [facility], [address] [place] [address] Sol Harvey FNP [address] [place] [address] Karin Lazo, AMANDA [address] [facility] [address] [place] [address] documented as of this encounter Visit Diagnoses Not on filedocumented in this encounter Additional Health Concerns Assessment Noted Time PHQ-9 Depression Total Score: 0 11/04/19 24 1:33 PM ADMINISTRATIVE LIBRARY ASSISTANT documented as of this encounter Care Teams Rn Clinical Resource Relationship Specialty Start Date End Date Sol Havrey FNP [address] [place] [address] PCP - General Nurse Practitioner Family 09/21/19 Syeda Baires NP [facility] [place] [address] NURSE PRACTITIONER 09/21/19 documented as of this encounter
--- OUTSIDE RECORDS SUMMARY | 2025-01-09 18:36 | XMS_ITS | Encounter Summary ---
Author Organization [facility] Address [address] [place] [address] Care Team Providers Care Rn Critical Care Name Role Phone Sol Harvey FEDERICA Primary Care Provider [phone] Syeda Baires BEAN SPROUT GROWER Unavailable [phone] Encounter Details Date Type Department Care Team (Latest Contact Info) Description 01/08/2025 Travel Social History Tobacco Use Types Packs/Day Years Used Date Smoking Tobacco: Never Passive Smoke Exposure: Never Smokeless Tobacco: Never Alcohol Use Standard Drinks/Week Comments Not Currently 0 (1 standard drink = 0.6 oz pur e alcohol) does not drink any longer AUDIT-C Answer Date Recorded Frequency of Alcohol Consumption Never 09/24/2019 Average Number of Drinks Not on file 019 Frequency of Binge Drinking Not on file 08/28 PHQ-2 Answer Date Recorded Patient Health Questionnaire-2 Score 0 12/19/2024 Comments No Sex and Gender Information Value Date Recorded Sex Assigned at Female 10/15/2024 8:17 AM DRAINAGE ENGINEER Legal Sex Female 6:09 PM CDT Gender Identity Female 02/13/2022 1:37 PM CDT Sexual Orientation Straight 02/13/2022 1: 37 PM CDT documented as of this encounter Plan of Treatment Upcoming Encounters Date Type Department Care Team ( Contact Info) Description 01/15/2025 1:00 PM CDT Office Visit [facility] Medical Group Multispecialty Care - [address] [place] [address] Sol Harvey FNP [address] [place] [address] Karin Lazo NP 3 [facility] [address] [place] [address] documented as of this encounter Visit Diagnoses Not on filedocumented in this encounter Additional Health Concerns Assessment Noted Time PHQ-9 Depression Total Score: 0 11/04/19 24 1:33 PM DRAINAGE ENGINEER documented as of this encounter Care Teams Rn Critical Care Relationship Specialty Start Date End Date Sol Harvey FNP [address] [place] [address] PCP - General Nurse Practitioner Family 09/21/19 Syeda Baires NP [address] [place] [address] NURSE PRACTITIONER 09/21/19 documented as of this encounter
--- OUTSIDE RECORDS SUMMARY | 2025-01-09 18:36 | XMS_ITS | Encounter Summary ---
Author Organization [facility] Address [address] [place] [address] Care Team Providers Care Cafeteria Cook Name Role Phone Sol Harvey FEDERICA Primary Care Provider [phone] Syeda Baires BRIQUETTER OPERATOR Unavailable [phone] Encounter Details Date Type Department Care Team (Latest Contact Info) Description 11/22/2023 Qw[place] Message Enc [facility] Medical Group Multispecialty Care - [facility] 3 [facility], [address] [place] [address] Mary Arias APRN 3 [facility] [address] [place], [place] [id number] Pain management injections Social History Tobacco Use Types Packs/Day Years [...] Sex Assigned at Female 10/15/2024 8:17 AM ANIMAL HOSPITAL CLERK Legal Sex Female 6:09 PM CDT Gender Identity Female 02/13/2022 1:37 PM CDT Sexual Orientation Straight 02/13/2022 1: 37 PM CDT documented as of this encounter Plan of Treatment Upcoming Encounters Date Type Department Care Team (Late st Contact Info) Description 01/15/2025 1:00 PM CDT Office Visit [facility] Medical Group Multispecialty Care - [facility] [address] [facility] [place] [address] Sol Harvey FNP [address] [place] [address] Karin Lazo NP 3 [facility] [address] [place] [address] documented as of this encounter Visit Diagnoses Not on filedocumented in this encounter Additional Health Concerns Infection Onset Date Last Indicated Resolved Time COVID-19 Rule Out 07/03/2024 07/03/2024 07/03/2024 11:34 AM CDT COVID-19 Rule Out 07/03/2024 07/03/2024 07/05/2024 1:09 AM CDT Assessment Noted Time PHQ-9 Depression Total Score: 0 11/04/19 24 1:33 PM ANIMAL HOSPITAL CLERK documented as of this encounter Care Teams Cafeteria Cook Relationship Specialty Start Date End Date Sol Harvey FNP [address] [place] [address] PCP - General Nurse Practitioner Family 09/21/19 Syeda Baires NP [address] [place] [address] NURSE PRACTITIONER 09/21/19 documented as of this encounter
--- OUTSIDE RECORDS SUMMARY | 2025-01-09 18:36 | XMS_ITS | Encounter Summary ---
Author Organization [facility] Address [address] [place] [address] Care Team Providers Care Shearing Machine Operator Name Role Phone Sol Harvey Primary Care Provider [phone] Syeda Baires DIDACTIC INSTRUCTOR Unavailable [phone] Encounter Details Date Type Department Care Team (Late st Contact Info) Description 01/16/2021 [place] [employer] Message Enc [facility] Medical Group Family & Internal Medicine [facility] [address] [place] [address] Sol Harvey FNP [address] [place] [address] Follow Up/Update Social History Tobacco [...] Sex Assigned at Female 10/15/2024 8:17 AM HEAD FILTER PRESS TENDER Legal Sex Female 6:09 PM CDT Gender Identity Female 02/13/2022 1:37 PM CDT Sexual Orientation Straight 02/13/2022 1: 37 PM CDT COVID-19 Exposure Response Date Recorded In the last month, have you been in contact with someone who was confirmed or suspected to have Coronavirus / COVID-19? No / Unsure 01/15/2021 11:28 AM CDT documented as of this encounter Progress Notes * FEDERICA Warner - 01/16/2021 8:08 AM CDT She will need a stat ct of her abdomen and pelvis today without contrast for hematuria ( we did a ua yesterday) and flank pain documented in this encounter Plan of Treatment Upcoming Encounters Date Type Department Care Team (Late st Contact Info) Description 01/15/2025 1:00 PM CDT Office Visit [facility] Medical Group Multispecialty Care - [facility] 3 [facility], [address] [place] [address] Sol Harvey FNP [address] [place] [address] Karin Lazo, AMANDA 3 [facility] [address] [place] [address] documented as of this encounter Visit Diagnoses Not on filedocumented in this encounter Additional Health Concerns Infection Onset Date Last Indicated Resolved Time COVID-19 Rule Out 08/15/2023 08/15/2023 08/15/2023 9:04 AM HEAD FILTER PRESS TENDER COVID-19 Rule Out 07/03/2024 07/03/2024 07/03/2024 11:34 AM CDT COVID-19 Rule Out 07/03/2024 07/03/2024 07/05/2024 1:09 AM CDT Assessment Noted Time PHQ-9 Depression Total Score: 15 0318/2 021 12:22 PM CDT documented as of this encounter Care Teams Shearing Machine Operator Relationship Specialty Start Date End Date Sol Harvey FNP [facility] [place] [address] PCP - General Nurse Practitioner Family 09/21/19 Syeda Baires NP [facility] [place] [address] NURSE PRACTITIONER 09/21/19 documented as of this encounter
--- OUTSIDE RECORDS SUMMARY | 2025-01-09 18:36 | XMS_ITS | Encounter Summary ---
Author Organization [facility] Address [address] [place] [address] Care Team Providers Care Ecological Technical Officer Name Role Phone Sol Harvey Primary Care Provider Syeda Baires ACCOUNT RESOLUTION EXPERT Unavailable [phone] Encounter Details Date Type Department Care Team (Late st Contact Info) Description 09/12/2023 [employer] Message Enc [facility] Medical Group Family & Internal Medicine [facility] [address] [place] [address] Sol Harvey FNP [address] [place] [address] [place] Social History Tobacco Use Types Packs/Day Years [...] Sex Assigned at Female 10/15/2024 8:17 AM INDUSTRIAL EDITOR Legal Sex Female 6:09 PM CDT Gender Identity Female 02/13/2022 1:37 PM CDT Sexual Orientation Straight 02/13/2022 1: 37 PM CDT documented as of this encounter Progress Notes * FEDERICA Warner - 09/12/2023 12:36 PM CST Can we print these please and make sure she has been seen recently. STRIAL EDITOR documented in this encounter Plan of Treatment Upcoming Encounters Date Type Department Care Team (Late st Contact Info) Description 01/15/2025 1:00 PM CDT Office Visit [facility] Medical Group Multispecialty Care - [facility] 3 [facility] [address] [place] [address] Sol Harvey FNP [address] [place] [address] Karin Lazo NP 3 [facility] [address] [place] [address] documented as of this encounter Visit Diagnoses Not on filedocumented in this encounter Additional Health Concerns Infection Onset Date Last Indicated Resolved Time COVID-19 Rule Out 07/03/2024 07/03/2024 07/03/2024 11:34 AM CDT COVID-19 Rule Out 07/03/2024 07/03/2024 07/05/2024 1:09 AM CDT Assessment Noted Time PHQ-9 Depression Total Score: 0 12/07/19 23 11:42 AM CDT documented as of this encounter Care Teams Ecological Technical Officer Relationship Specialty Start Date End Date Sol Harvey FNP [address] [place] [address] PCP - General Nurse Practitioner Family 09/21/19 Syeda Baires NP [address] [place] [address] NURSE PRACTITIONER 09/21/19 documented as of this encounter
--- OUTSIDE RECORDS SUMMARY | 2025-01-09 18:36 | XMS_ITS | Referral Summary ---
Author Organization [facility] [employer] [facility] Address [address] [place] [address] Phone Care Team Providers Care Leasing Manager Name Role Phone Reginaldo Lopez MD Primary Care Provider Encounters Date Type Department Care Team Description 12/06/2024 Telephone [facility] Medical [facility] ENT Specialists - [facility] [address] [facility] [address] [place] [address] Al Burgos 10/23/2024 1:30 PM POISING INSPECTOR Office Visit [facility] [address] [facility] [address] [place] [address] Kassandra Roldan, SHARLA Ptosis of eyelid, left (Primary Dx); Pseudopapilledema of both optic discs; Exotropia 10/19/2024 Telephone [facility] Medical Group ENT Specialists - [facility] [address] [facility] [address] [place] [address] Karin Hinds MA Scheduling Appointments 10/17/2024 Telephone [facility] [address] [facility] 6th Floor, [address] [facility] [place] [address] Lee Vaughn, OD from Last 3 Months Allergies Active Allergy Reactions Criticality Noted Date [...] 1 tablet (100 mg total) by mouth data entry operator before breakfast 4 Active triamcinolone (KENALOG) 0.1 [...] 10/23/2024 Assessment & Plan (10/23/2024 4:37 PM POISING INSPECTOR): Acute onset of intermittent ptosis left eye [...] 03/08/2024 Assessment & Plan (10/23/2024 4:31 PM POISING INSPECTOR): Stable on exam today Monitor Assessment & Plan (03/08/2024 3:27 PM CDT): Mild exo posture that is comitant and stable. Likely decompensation, rarely symptomatic. Defer prism at this time. Send myasthenia labs, TSH normal recently. Monitor closely. Pseudopapilledema of both optic discs 12/22/2023 Assessment & Plan (10/23/2024 4:34 PM POISING INSPECTOR): Suspicious ONH appearance with mild visual field [...] symptoms Endometriosis 12/30/2017 Fibrosis of uterus 12/30/2017 Social History Tobacco Use Types Packs/Day Years Used Date Smoking Tobacco: Never Smokeless Tobacco: Never Alcohol Use Standard Drinks/Week Comments Yes 0 (1 standard drink = 0.6 oz pur e alcohol) rarely Comments No Sex and Gender Information Value Date Recorded Sex Assigned at Not on file Legal Sex Female 11:12 AM POISING INSPECTOR Gender Identity Not on file Sexual Orientation Not on file Last Filed Vital Signs Vital Sign Reading Time Taken Comments Blood Pressure 176/109 10/09/2024 10:56 AM POISING INSPECTOR Pulse 96 10/09/2024 10:56 AM POISING INSPECTOR Temperature 36.6 C (97.9 F) 10/09/2024 10:56 AM POISING INSPECTOR Respiratory Rate 18 10/09/2024 10:5 6 AM POISING INSPECTOR Oxygen Saturation 98% 10/09/2024 10: 56 AM POISING INSPECTOR Inhaled Oxygen Concentration - - Weight 125.8 kg (277 lb 4.8 oz) 025 10:56 AM POISING INSPECTOR Height 175.3 cm (5' 9.02 ) 10/09/2024 1 0:56 AM POISING INSPECTOR Body Mass Index 40.93 10/09/2024 10:56 AM POISING INSPECTOR Plan of Treatment Not on file Procedures Procedure Name Priority Date/Time Associated Diagnosis Comments NICOLE VISUAL FIELD - OU - BOTH EYES Routine 10/23/2024 4:41 PM POISING INSPECTOR Pseudopapilledema of both optic discs OCT, OPTIC NERVE - OU - BOTH EYES Routine 10/23/2024 4:38 PM POISING INSPECTOR Pseudopapilledema of both optic discs from Last 3 Months Results * Nicole Visual Field - OU - Both Eyes (10/23/2024 4:41 PM POISING INSPECTOR) Pattern Deviation OS 2.35 dB CONTINUUM Pattern Deviation OD 1.46 dB CONTINUUM Mean Deviation OS -2.93 dB CONTINUUM Mean Deviation OD -0.79 dB CONTINUUM Anatomical Region Laterality Modality Head Visual Field Narrative 10/23/2024 4:41 PM POISING INSPECTOR Right Eye Fixation was good. Cooperation was [...] eyes (OU) - most likely stable Kassandra Roldan OD OPHTH VISUAL FIELD Final Result * OCT, Optic Nerve - OU - Both Eyes (10/23/2024 4:38 PM POISING INSPECTOR) RNFL OS 71 micrometers CONTINUUM RNFL OD 87 micrometers CONTINUUM Anatomical Region Laterality Modality Head Optical Coherenc e Tomography Narrative 10/23/2024 4:38 PM POISING INSPECTOR Right Eye Reliability was poor. Temporal progression [...] Final Result from Last 3 Months Insurance Optinuity ACCESS CHOICE Optinuity ACCESS CHOICE Care Teams Leasing Manager Relationship Specialty Start Date End Date Reginaldo Lopez MD [address] [facility] [address] [place] [id number] PCP - General Family Medicine 10/12/24
--- OUTSIDE RECORDS SUMMARY | 2025-01-09 18:36 | XMS_ITS | Encounter Summary ---
Author Organization [facility] Address [address] [place] [address] Care Team Providers Care Pick Up Attendant Name Role Phone Sol Harvey Primary Care Provider [phone] Syeda Baires OFFSET LABEL REWINDER Unavailable [phone] Encounter Details Date Type Department Care Team (Late st Contact Info) Description 07/12/2024 [employer] Message Enc [facility] Medical Group Family & Internal Medicine [facility] [address] [place] [address] Sol Harvey FNP [address] [place], [place] [id number] Illness follow up Social History Tobacco Use Types Packs/Day Years [...] Sex Assigned at Female 10/15/2024 8:17 AM COW RIDER Legal Sex Female 6:09 PM CDT Gender Identity Female 02/13/2022 1:37 PM CDT Sexual Orientation Straight 02/13/2022 1: 37 PM CDT documented as of this encounter Functional Status * Calculated C-SSRS Risk Score (Lifetime/Recent) Answer Date of Assessment Author Status No Risk Indicated 07/12/2024 3:17 PM CDT Terrell Baird RN Active * Anderson Suicide Severity Rating Scale (Screener/Recent Self-Report) Question Answer Date of Assessment Author Status 1. Wish to be (Past 1 Month) No 07/12/2024 3:17 PM CDT Elham Baird, RN Acti ve 2. Non-Specific Active Suicidal Thoughts (Past 1 Month) No 07/12/2024 3:17 PM CDT Elham Baird, RN Acti ve 6. Suicidal Behavior (Lifetime) No 07/12/2024 3:17 PM CDT Elham Baird, RN Acti ve documented as of this encounter Progress Notes * FEDERICA Warner - 07/13/2024 12:06 PM CDT Ill send adviar for her to use twice a day, everyday documented in this encounter Plan of Treatment Upcoming Encounters Date Type Department Care Team (Late st Contact Info) Description 01/15/2025 1:00 PM CDT Office Visit [facility] Medical Group Multispecialty Care - [facility] 3 [facility] [place] [address] Sol Harvey FNP [address] [place] [address] Karin Lazo NP 3 [facility] [address] [place] [address] documented as of this encounter Visit Diagnoses Not on filedocumented in this encounter Additional Health Concerns Assessment Noted Time PHQ-9 Depression Total Score: 0 11/04/19 24 1:33 PM COW RIDER documented as of this encounter Care Teams Pick Up Attendant Relationship Specialty Start Date End Date Sol Harvey FNP [facility] [place] [address] PCP - General Nurse Practitioner Family 09/21/19 Syeda Baires NP [facility] [place] [address] NURSE PRACTITIONER 09/21/19 documented as of this encounter
--- OUTSIDE RECORDS SUMMARY | 2025-01-09 18:36 | XMS_ITS | Encounter Summary ---
Author Organization [facility] Address [address] [place] [address] Care Team Providers Care Control Clerk Subassembly Name Role Phone Annette Chandler Primary Care Provider [phone] Syeda Baires CRUTCH MAKER Unavailable [phone] Reason for Referral * Imaging (Routine) - Closed Specialty Diagnoses / Procedures Referred By Sapna aguiar Referred To Contact RADIOLOGY Diagnoses Pseudopapilledema of both optic discs Exotropia Visual changes Raised intraocular pressure of both eyes Ptosis of eyelid, left Procedures MRI BRAIN WO CON Annette Chandler FNP [address] [place] [address] Phone: tel: fax: Referral ID Status Reason Start Date Expiration Date Visits Re quested Visits Authorized [id number] Closed 12/19/2024 12/19/2025 1 1 Reason for Visit * Imaging (Routine) - Closed Specialty Diagnoses / Procedures Referred By Sapna aguiar Referred To Contact RADIOLOGY Diagnoses Pseudopapilledema of both optic discs Exotropia Visual changes Raised intraocular pressure of both eyes Ptosis of eyelid, left Procedures MRI BRAIN WO CON Annette Chandler FNP [address] [place] [address] Phone: tel: fax: Referral ID Status Reason Start Date Expiration Date Visits Re quested Visits Authorized [id number] Closed 12/19/2024 12/19/2025 1 1 Encounter Details Date Type Department Care Team (Late st Contact Info) Description 01/08/2025 11:56 AM CDT Hospital Encounter [facility] MRI [address] [facility] [place] [address] Annette Chandler, FEDERICA [address] [place] [address] Arrived Social History Tobacco Use Types Packs/Day Years [...] Sex Assigned at Female 10/15/2024 8:17 AM WATERSHED PROGRAM MANAGER Legal Sex Female 6:09 PM CDT Gender Identity Female 02/13/2022 1:37 PM CDT Sexual Orientation Straight 02/13/2022 1: 37 PM CDT documented as of this encounter Plan of Treatment Upcoming Encounters Date Type Department Care Team (Late st Contact Info) Description 01/15/2025 1:00 PM CDT Office Visit [facility] Medical Group Multispecialty Care - [facility] 3 [facility] [place] [address] Annette Chandler, FEDERICA [address] [place] [address] Karin Lazo NP 3 [facility] [address] [place] [address] documented as of this encounter Procedures Procedure Name Priority Date/Time Associated Diagnosis Comments MRI BRAIN WO CON Routine 01/08/2025 12:4 2 PM CDT Pseudopapilledema of both optic discs Exotropia Visual changes Raised intraocular pressure of both eyes Ptosis of eyelid, left documented in this encounter Results * MRI BRAIN WO CON (01/08/2025 12:42 PM CDT) Anatomical Region Laterality Modality Head Magnetic Resonan ce 01/08/2025 1:43 PM CDT Impressions 01/09/2025 4:09 PM CDT IMPRESSION: 1. No definite findings to suggest underlying demyelinating disease. No obvious abnormal signal identified along the optic nerves to suggest optic apparatus. If there is high clinical suspicion for optic neuritis, could consider repeat MRI of the orbits without/with contrast. 2. Empty sella configuration, which can be an incidental finding, but can also be associated with increased intracranial pressure (e.g. idiopathic intracranial hypertension/pseudotumor cerebri) in the appropriate clinical context. Preliminary: Annette Chau DO01/08/2025 4:06 PM The attending radiologist has reviewed the image(s) and agrees with the content of this report. Ordered By: ANNETTE CHANDLER Interpreted By: Annette Chau DO, 01/08/2025 1:43 PM Narrative 01/09/2025 4:[address] PM [address] [address] EXAMINATION: MRI brain without contrast. DATE: 01/08/2025 12:12 PM INDICATION: Visual disturbances, double vision, headaches, dizziness, numbness in arms and legs, paresthesias x1 year TECHNIQUE: Multiplanar and multisequence MRI images of the brain were obtained without contrast. COMPARISON: None FINDINGS: There is no evidence of acute infarct or restricted diffusion. There is no evidence of intracranial mass, mass effect or midline shift. The ventricles and subarachnoid spaces are symmetric and unremarkable. There are no abnormal extra-axial collections. There are no obvious white matter signal changes visualized to suggest a demyelinating disease. The major intracranial arterial flow voids are grossly patent. Empty sella configuration Normal size and signal of the globes. No obvious abnormal signal identified along the optic nerves, chiasm, or visualized optic tracts. No enlargement of the optic nerve sheaths. No evidence of posterior globe flattening. The craniocervical junction junction and pineal region appear unremarkable. Visualized mastoid air cells, paranasal sinuses appear unremarkable. Procedure Note Scot Good MD - 01/09/2025 [facility] [address] [place], [place] [address] EXAMINATION: MRI brain without contrast. DATE: 01/08/2025 12:12 PM INDICATION: Visual disturbances, double vision, headaches, dizziness,numbness in arms and legs, paresthesias x1 year TECHNIQUE: Multiplanar and multisequence MRI images of the brain wereobtained without contrast. COMPARISON: None FINDINGS: There is no evidence of acute infarct or restricted diffusion. There is noevidence of intracranial mass, mass effect or midline shift. Theventricles and subarachnoid spaces are symmetric and unremarkable. Thereare no abnormal extra-axial collections. There are no obvious white mattersignal changes visualized to suggest a demyelinating disease. The majorintracranial arterial flow voids are grossly patent. Empty sellaconfiguration Normal size and signal of the globes. No obvious abnormalsignal identified along the optic nerves, chiasm, or visualized optictracts. No enlargement of the optic nerve sheaths. No evidence ofposterior globe flattening. The craniocervical junction junction andpineal region appear unremarkable. Visualized mastoid air cells, paranasalsinuses appear unremarkable. IMPRESSION: 1. No definite findings to suggest underlying demyelinating disease. Noobvious abnormal signal identified along the optic nerves to suggest opticapparatus. If there is high clinical suspicion for optic neuritis, couldconsider repeat MRI of the orbits without/with contrast. 2. Empty sella configuration, which can be an incidental finding, but canalso be associated with increased intracranial pressure (e.g. idiopathicintracranial hypertension/pseudotumor cerebri) in the appropriate clinicalcontext. Preliminary: Annette Chau DO01/08/2025 4:06 PM The attending radiologist has reviewed the image(s) and agrees with thecontent of this report. Ordered By: ANNETTE CHANDLER Interpreted By: Annette Chau DO, 01/08/2025 1:43 PM Annette STALLWORTH MRI Final Result documented in this encounter Visit Diagnoses Diagnosis Pseudopapilledema of both optic discs Pseudopapilledema Exotropia Exotropia, unspecified Visual changes Unspecified visual disturbance Raised intraocular pressure of both eyes Ptosis of eyelid, left Unspecified ptosis of eyelid documented in this encounter Additional Health Concerns Assessment Noted Time PHQ-9 Depression Total Score: 0 11/04/19 24 1:33 PM WATERSHED PROGRAM MANAGER documented as of this encounter Care Teams Control Clerk Subassembly Relationship Specialty Start Date End Date Annette Chandler FNP [facility] [place] [address] PCP - General Nurse Practitioner Family 09/21/19 Syeda Baires NP [facility] [place] [address] NURSE PRACTITIONER 09/21/19 documented as of this encounter
--- OUTSIDE RECORDS SUMMARY | 2025-01-09 18:36 | XMS_ITS | Encounter Summary ---
Author Organization [facility] Address [address] [place] [address] Care Team Providers Care Singer Back Tender Name Role Phone Sol Harvey Primary Care Provider Syeda Baires TRANSCRIBING MACHINE MECHANIC Unavailable [phone] Encounter Details Date Type Department Care Team (Late st Contact Info) Description 10/14/2021 [employer] Message Enc [facility] Medical Group Family & Internal Medicine [facility] [address] [place] [address] Sol Harvey FNP [address] [place] [address] Medication update Social History Tobacco Use Types Packs/Day Years [...] Sex Assigned at Female 10/15/2024 8:17 AM LEGAL OFFICE ADMINISTRATOR Legal Sex Female 6:09 PM CDT Gender Identity Female 02/13/2022 1:37 PM CDT Sexual Orientation Straight 02/13/2022 1: 37 PM CDT documented as of this encounter Plan of Treatment Upcoming Encounters Date Type Department Care Team (Late st Contact Info) Description 01/15/2025 1:00 PM CDT Office Visit [facility] Medical Group Multispecialty Care - [facility] [address] [facility] [place] [address] Sol Harvey FNP [address] [place] [address] Karin Lazo NP 3 [facility] [address] [place] [address] documented as of this encounter Visit Diagnoses Not on filedocumented in this encounter Additional Health Concerns Infection Onset Date Last Indicated Resolved Time COVID-19 Rule Out 08/15/2023 08/15/2023 08/15/2023 9:04 AM LEGAL OFFICE ADMINISTRATOR COVID-19 Rule Out 07/03/2024 07/03/2024 07/03/2024 11:34 AM CDT COVID-19 Rule Out 07/03/2024 07/03/2024 07/05/2024 1:09 AM CDT Assessment Noted Time PHQ-9 Depression Total Score: 4 03/20/20 21 9:12 AM CDT documented as of this encounter Care Teams Singer Back Tender Relationship Specialty Start Date End Date Sol Harvey FNP [address] [place] [address] PCP - General Nurse Practitioner Family 09/21/19 Syeda Baires NP [address] [place] [address] NURSE PRACTITIONER 09/21/19 documented as of this encounter
--- OUTSIDE RECORDS SUMMARY | 2025-01-09 18:36 | XMS_ITS | Encounter Summary ---
Author Organization [facility] Address [address] [place] [address] Care Team Providers Care News Copy Editor Name Role Phone Sol Harvey Primary Care Provider [phone] Syeda Baires CERTIFIED LACTATION EDUCATOR Unavailable [phone] Encounter Details Date Type Department Care Team (Late st Contact Info) Description 12/20/2022 Link To Mediat Message Enc [facility] Medical Group Family & Internal Medicine [facility] [address] [place] [address] Sol Harvey FNP [address] [place] [address] Ear and throat pain Social History Tobacco Use Types Packs/Day [...] Sex Assigned at Female 10/15/2024 8:17 AM HUMAN SERVICES INSTRUCTOR Legal Sex Female 6:09 PM CDT Gender [...] Description 01/15/2025 1:00 PM CDT Office Visit [facility] Medical Group Multispecialty Care - [facility] 3 [facility] [place] [address] Sol Harvey FNP [address] [place] [address] Karin Lazo NP 3 [facility] [address] [place] [address] documented as of this encounter Visit Diagnoses Not on filedocumented in this encounter Additional Health Concerns Infection Onset Date Last Indicated Resolved Time COVID-19 Rule Out 08/15/2023 08/15/2023 08/15/2023 9:04 AM HUMAN SERVICES INSTRUCTOR COVID-19 Rule Out 07/03/2024 07/03/2024 07/03/2024 11:34 AM CDT COVID-19 Rule Out 07/03/2024 07/03/2024 07/05/2024 1:09 AM CDT Assessment Noted Time PHQ-9 Depression Total Score: 0 12/07/19 23 11:42 AM CDT documented as of this encounter Care Teams News Copy Editor Relationship Specialty Start Date End Date Sol Harvey FNP [address] [place] [address] PCP - General Nurse Practitioner Family 09/21/19 Syeda Baires NP [address] [place] [place] [address] NURSE PRACTITIONER 09/21/19 documented as of this encounter
--- OUTSIDE RECORDS SUMMARY | 2025-01-09 18:36 | XMS_ITS | Encounter Summary ---
Author Organization [facility] Address [address] [place] [id number] Care Team Providers Care Residential Support Worker Name Role Phone Sol Harvey [place] Primary Care Provider [phone] Syeda Baires DRIVER MEDIC Unavailable [phone] Encounter Details Date Type Department Care Team (Latest Contact Info) Description 12/26/2024 Scan HEALTH INFO [facility] Scanned, Doc Med Group Social History Tobacco Use Types Packs/Day Years [...] Sex Assigned at Female 10/15/2024 8:17 AM UAT TESTER Legal Sex Female 6:09 PM CDT Gender Identity Female 02/13/2022 1:37 PM CDT Sexual Orientation Straight 02/13/2022 1: 37 PM CDT documented as of this encounter Functional Status * Calculated C-SSRS Risk Score (Lifetime/Recent) Answer Date of Assessment Author Status No Risk Indicated 12/30/2024 1:36 PM CDT Juan Storm, RN Active * [place] Suicide Severity Rating Scale (Screener/Recent Self-Report) Question Answer Date of Assessment Author Status 1. Wish to be (Past 1 Month) No 12/30/2024 1:36 PM CDT Renetta Storm, RN Acti ve 2. Non-Specific Active Suicidal Thoughts (Past 1 Month) No 12/30/2024 1:36 PM CDT Renetta Storm, RN Acti ve 6. Suicidal Behavior (Lifetime) No 12/30/2024 1:36 PM CDT Renetta Storm, RN Acti ve documented as of this encounter Plan of Treatment Upcoming Encounters Date Type Department Care Team (Late st Contact Info) Description 01/15/2025 1:00 PM CDT Office Visit [facility] Medical Group Multispecialty Care - [facility] [address] [facility], [address] [place] [address] Sol Harvey FNP [address] [place] [address] Karin Lazo NP [address] [facility] [address] [place] [address] documented as of this encounter Visit Diagnoses Not on filedocumented in this encounter Additional Health Concerns Assessment Noted Time PHQ-9 Depression Total Score: 0 11/04/19 24 1:33 PM UAT TESTER documented as of this encounter Care Teams Residential Support Worker Relationship Specialty Start Date End Date Sol Harvey FNP [address] [place] [address] PCP - General Nurse Practitioner Family 09/21/19 Syeda Baires NP [address] [place] [address] NURSE PRACTITIONER 09/21/19 documented as of this encounter
--- OUTSIDE RECORDS SUMMARY | 2025-01-09 18:36 | XMS_ITS | Encounter Summary ---
Author Organization [facility] Address [address] [place] [address] Care Team Providers Care Prosthetics Assistant Name Role Phone Sol Harvey [place] Primary Care Provider [phone] Syeda Baires REGULATORY COMPLIANCE COORDINATOR Unavailable [phone] Encounter Details Date Type Department Care Team (Late st Contact Info) Description 09/12/2023 Bitstripst Message Enc [facility] Medical Group Multispecialty Care - [facility] [address] [facility], [address] [place] [id number] Mary Arias APRN [address] [facility] [address] [place], [place] [phone] ADA back Pain Social History Tobacco Use Types Packs/Day Years [...] Sex Assigned at Female 10/15/2024 8:17 AM BLACK TOP RAKER Legal Sex Female 6:09 PM CDT Gender Identity Female 02/13/2022 1:37 PM CDT Sexual Orientation Straight 02/13/2022 1: 37 PM CDT documented as of this encounter Plan of Treatment Upcoming Encounters Date Type Department Care Team (Late st Contact Info) Description 01/15/2025 1:00 PM CDT Office Visit [facility] Medical Group Multispecialty Care - [facility] [address] [facility], [address] [place] [address] Sol Harvey FNP [address] [place] [address] Karin Lazo NP 3 [facility] [address] [place] [address] documented as of this encounter Visit Diagnoses Not on filedocumented in this encounter Additional Health Concerns Infection Onset Date Last Indicated Resolved Time COVID-19 Rule Out 07/03/2024 07/03/2024 07/03/2024 11:34 AM CDT COVID-19 Rule Out 07/03/2024 07/03/2024 07/05/2024 1:09 AM CDT Assessment Noted Time PHQ-9 Depression Total Score: 0 12/07/19 23 11:42 AM CDT documented as of this encounter Care Teams Prosthetics Assistant Relationship Specialty Start Date End Date Sol Harvey FNP [address] [place] [address] PCP - General Nurse Practitioner Family 09/21/19 Syeda Baires NP [address] [place] [address] NURSE PRACTITIONER 09/21/19 documented as of this encounter
--- OUTSIDE RECORDS SUMMARY | 2025-01-09 18:36 | XMS_ITS | Clinical Summary ---
Author Organization [facility] Address [address] [place] [address] Care Team Providers Care Card Services Specialist Name Role Phone Annette Chandler [place] Primary Care Provider [phone] SQL PROGRAMMER Unavailable [phone] Allergies Active Allergy Reactions Criticality Noted Date Comments Etodolac Rash Low 12/16/2016 Ketorolac Tromethamine Hives 12/30/2024 Medications cetirizine 10 MG tablet Take by mouth daily. Active ipratropium-albut misty 0.5-2.5 (3) MG/3ML SolutionIndicatio ns:Wheezing,Cough ,Moderate persistent asthma, unspecified whether complicated (HHS/HCC) INHALE THE CONTENTS OF 1 VIAL VIA NEBULIZATION ROUTE EVERY 6 HOURS NEEDED 360 mL 3 021 Active rizatriptan (MAXALT) 10 MG tabletIndications :Migraine TAKE 1 TABLET BY MOUTH NEEDED FOR MIGRAINE.MAY REPEAT IN 2 HOURS IF NEEDED. MAX 2 TABS/24HOURS 10 tablet 6 024 Active valACYclovir (VALTREX) 500 MG tabletIndications :Herpes simplex vulvovaginitis Take 1 tablet (500 mg total) by mouth 2 (two) times daily. 60 tablet 2 024 Active hydrOXYzine (ATARAX) 25 MG tabletIndications :Anxiety Take 1 tablet (25 mg total) by mouth every 8 (eight) hours as needed. 30 tablet 1 024 Active ondansetron (ZOFRAN-ODT) 4 MG disintegrating tablet Take 1 tablet (4 mg total) by mouth every 8 (eight) hours as needed. 20 tablet 024 Active metoprolol succinate ER (TOPROL-XL) 25 MG 24 hr tablet Take 1 tablet (25 mg total) by mouth daily. NEW DOSE 90 tablet 1 025 Active lisinopril-hydroC HLOROthiazide (ZESTORETIC) 20-12.5 MG tabletIndications :Primary hypertension TAKE 1 TABLET BY MOUTH EVERY DAY 90 tablet 3 025 Active venlafaxine XR (EFFEXOR-XR) 75 MG 24 hr capsuleIndication s:Anxiety TAKE 1 CAPSULE BY MOUTH EVERY DAY IN THE MORNING 90 capsule 2 025 Active pantoprazole EC (PROTONIX) 40 MG tabletIndications :GERD (gastroesophageal reflux disease) TAKE 1 TABLET BY MOUTH EVERY DAY 90 tablet 025 Active sertraline (ZOLOFT) 100 MG tabletIndications :Anxiety TAKE 1 TABLET BY MOUTH EVERY DAY IN THE MORNING 90 tablet 025 Active busPIRone (BUSPAR) 30 MG tabletIndications :Anxiety TAKE 1 TABLET BY MOUTH TWICE A DAY 180 tablet 025 Active dextromethorphan- guaiFENesin ER (MUCINEX DM) 30-600 MG TABLET SR 12 HR 12 hr tablet Take 1 tablet by mouth every 12 (twelve) hours as needed. 28 tablet 025 Active fluticasone propionate (FLONASE) 50 MCG/ACT nasal spray 1 spray by Each Nostril route daily as needed. 1 g 025 Active methylPREDNISolon e, DILIP, (MEDROL DOSEPAK) 4 MG tablet Take 1 tablet (4 mg total) by mouth daily. 6 TABLETS ON DAY ONE, 5 TABLETS DAY TWO, 4 TABLETS DAY THREE, 3 TABLETS DAY FOUR, 2 TABLETS DAY FIVE, AND 1 TABLET DAY SIX 1 each 025 Active albuterol sulfate HFA 108 (90 Base) MCG/ACT inhalerIndication s:Mild persistent asthma without complication (HHS/HCC) INHALE 2 PUFFS INTO THE LUNGS EVERY 6 HOURS NEEDED FOR WHEEZE 6.7 g 2 04/09/2 025 Active albuterol sulfate HFA (PROAIR HFA) 108 (90 Base) MCG/ACT inhalerIndication s:Mild persistent asthma without complication (HHS/HCC) Inhale 2 puffs into the lungs every 6 (six) hours as needed for Wheezing. 54 g 2 024 2024 Discontinued ibuprofen (MOTRIN) 800 MG tabletIndications :Muscle spasm take 1 tablet by mouth every 8 hours as needed 90 tablet 024 2024 Discontinued busPIRone (BUSPAR) 30 MG tabletIndications :Anxiety take 1 tablet by mouth twice a day 180 tablet 024 2024 Discontinued fluticasone propionate (FLONASE) 50 MCG/ACT nasal sprayIndications: Uncontrolled asthma (HHS/HCC) SPRAY 1 SPRAY INTO EACH NOSTRIL EVERY DAY 48 mL 024 2024 Discontinued sertraline (ZOLOFT) 100 MG tabletIndications :Anxiety TAKE 1 TABLET BY MOUTH EVERY DAY IN THE MORNING 90 tablet 024 2024 Discontinued fluticasone-salme terol (ADVAIR DISKUS) 100-50 MCG/ACT inhalerIndication s:Moderate persistent asthma, unspecified whether complicated (HHS/HCC) INHALE 1 PUFF INTO THE LUNGS TWICE A DAY 180 each 2 025 2024 Discontinued(P t. elected to discontinue med) naproxen (NAPROSYN) 500 MG tabletIndications :Muscle spasm Take 1 tablet (500 mg total) by mouth 2 (two) times daily with meals. 60 tablet 025 2024 Discontinued ramelteon (ROZEREM) 8 MG tabletIndications :Insomnia Take 1 tablet (8 mg total) by mouth nightly at bedtime. 30 tablet 025 2024 Discontinued ramelteon (ROZEREM) 8 MG tabletIndications :Insomnia TAKE 1 TABLET BY MOUTH NIGHTLY AT BEDTIME. 90 tablet 025 2024 Discontinued predniSONE (DELTASONE) 10 mg tabletIndications :Polyarthralgia 4 tabs x 3d, 3 tabs x3d, 2 tabs x3d, 1 tab x3d 30 tablet 2024 Discontinued oseltamivir (TAMIFLU) 75 MG capsuleIndication s:Influenza B Take 1 capsule (75 mg total) by mouth 2 (two) times daily for 5 days. 10 capsule 025 2024 Discontinued benzonatate (TESSALON) 100 MG capsule Take 1 capsule (100 mg total) by mouth 3 (three) times daily as needed for Cough. 20 capsule 025 2024 Active Problems Problem Noted Date Diagnosed Date Visual changes 12/19/2024 Raised intraocular pressure of both eyes Irritable bowel syndrome wit h both constipation and diarrhea 12/19/2024 Ptosis of eyelid, left 10/23/2024 Polycythemia 05/04/2024 Bright red blood per rectum 04/19/2024 Exotropia 03/08/2024 Overview (03/16/2024): Last Assessment & Plan: Mild exo posture that is comitant and stable. Likely decompensation, rarely symptomatic. Defer prism at this time. Send myasthenia labs, TSH normal recently. Monitor closely. 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 Excellent afferent function. Monitor closely for changes. Spec Rx old and pt over-minused. No EOM restrictions or visually significant strab measurements. Update specs. RTC STAT/ED any vision loss, diplopia, or new neurologic symptoms Mild obstructive sleep apnea 12/14/2023 Recurrent streptococcal tonsillitis 11/15/2023 Recurrent otitis media, bilateral 11/15/2023 Recurrent otitis externa of both ears 11/15/2023 Chronic pharyngitis 11/15/2023 Excessive daytime sleepiness 11/15/2023 Snoring 11/15/2023 Large tonsils 11/15/2023 Sacroiliitis 05/28/2021 History of lumbar discectomy 05/28/2021 Lumbar radiculopathy 05/28/2021 Spinal stenosis of lumbar re gion without neurogenic claudication 05/28/2021 Other intervertebral disc degeneration, lumbar r egion 05/28/2021 Other intervertebral disc displacement, lumbar r egion 05/28/2021 Decreased sensation of lower extremity Hx of laminectomy 02/10/2021 Hx of spinal stenosis 02/10/2021 History of UTI 01/18/2021 Lumbar back pain with radicu lopathy affecting right lower extremity 01/18/2021 Mood disorder 12/29/2020 Chronic migraine without aur a without status migrainosus, not intractable 12/11/2020 Chronic left shoulder pain 10/29/2019 Vitamin B12 deficiency 10/29/2019 Joint swelling 10/29/2019 Class 2 severe obesity due t o excess calories with serious comorbidity and body mass index (BMI) of 38.0 to 38.9 in adult 09/24/2019 Hypertension 09/24/2019 Asthma (HHS/HCC) 09/24/2019 Anxiety 09/24/2019 Polyarthralgia 09/24/2019 Family history of rheumatoid arthritis 9 Vitamin D deficiency 09/24/2019 Fibrosis of uterus 12/30/2017 Endometriosis 12/30/2017 Resolved Problems Problem Noted Date Diagnosed Date Resolved Date Antibiotic-induced yeast infection 08/08/2023 11/15/2023 Encounter for medical examin ation to establish care 09/24/2019 06/06/2020 Cough 09/24/2019 11/15/2023 Wheezing 09/24/2019 11/15/2023 Encounter for lipid screenin g for cardiovascular disease 09/24/2019 06/06/2020 Encounters Date Type Department Care Team Description 01/08/2025 11:56 AM CDT Hospital Encounter [facility] MRI [address] [place] [address] Annette Chandler FNP Arrived 01/08/2025 Travel 12/31/2024 Telephone [facility] Family & Internal Medicine [address] [address] Annette Chandler FNP Lab Results 12/30/2024 1:30 PM CDT - 12/30/2024 2:28 PM CDT Hospital Encounter [facility] [address] [address] Néstor Brooks MD Flu Like Symptoms; Sinus Problem Discharge Disposition: Home or Self Care (Routine Discharge) 12/30/2024 Travel 12/26/2024 Scan HEALTH INFO SRVCS Scanned, [facility] 12/26/2024 MyChart Message Enc [facility] [address] [address] Annette Chandler FNP Flu test 12/19/2024 1:20 PM CDT Office Visit [address] [address] Annette Chandler FNP Joint Pain (Patient c/o pain in most of her joints. Patient states this flare up has lasted a few weeks . ) 12/19/2024 - 12/19/2024 11:59 PM CDT Hospital Encounter [facility] [address] [place] [address] Annette Chandler FNP Discharge Disposition: Home or Self Care (Routine Discharge) 12/19/2024 Travel 12/10/2024 MyChart Message Enc [address] [address] Kelsi [facility] Provider Insomnia 12/07/2024 MyChart Message Enc [facility] [address] [address] Annette Chandler FNP Insomnia 11/16/[address] [address] Annette Chandler FNP Lab Results 11/15/2024 10:20 AM SUPER[employer] Laboratory Only [address] [address] Annette Chandler FNP 11/15/2024 Travel 11/05/2024 MyChart Message Enc [facility] Family & Internal Medicine - [place] [id number] [place] [phone] Marylourenetta AnnetteFEDERICA Back spasm 10/15/2024 8:15 AM [employer] Office Visit [facility], [address] [address] Ebenezer Lynn MD Palpitations (Follow up) 10/15/2024 Travel from Last 3 Months Immunizations Immunization Administration Dates Next Due FLUCELVAX (ccIIV3, TRIVALENT, 0.5mL) 06/07/2024 Flucelvax 6 Months+ (Prefilled Syringe) 05/20/20 16 Influenza (Generic) 08/14/2019 Influenza Adult (Generic) 06/15/2017 Influenza Virus, Split 6-35 Mo 05/10/2015 PFIZER COVID-19 (ORIGINAL FO RMULATION, PURPLE CAP) mRNA, LNP-S, PF, 30 MCG/0.3 ML DOSE 03/30/2021 Pneumococcal (Prevnar 20) 06/07/2024 Tdap (Boostrix) 11/08/2018,10/31/2014 Tdap (Generic) 10/10/2014 Family History Medical History Relation Comments Alcohol Abuse Father Depression Father Diabetes Father Drug Abuse Father Hyperlipidemia Father Mental Health Father Arthritis Maternal Grandfather Heart Disease Maternal Grandfather Thyroid Maternal Grandfather Asthma Mother Diabetes Mother Early Hearing Loss Mother One ear. Her and her 3 sister went deaf or had severe hearing loss in one ear Hyperlipidemia Mother Hypertension Mother Cancer Paternal Grandfather Lupus Paternal Grandmother Asthma Sister Diabetes Sister Retardation/Learning Difficulties Son 1 Autism Retardation/Learning Difficulties Son 2 Leukodystrophy Relation Status Comments Father Alive Maternal Grandfather Mother Alive Paternal Grandfather Paternal Grandmother Sister Son 1 Son 2 Social History Tobacco Use Types Packs/Day Years Used Date Smoking Tobacco: Never Passive Smoke Exposure: Never Smokeless Tobacco: Never Tobacco Cessation:Counseling Given: Not Answered Alcohol Use Standard Drinks/Week Comments Not Currently [...] Sex Assigned at Female 10/15/2024 8:17 AM [employer] Legal Sex Female 6:09 PM CDT Gender Identity Female 02/13/2022 1:37 PM CDT Sexual Orientation Straight 02/13/2022 1: 37 PM CDT Last Filed Vital Signs Vital Sign Reading Time Taken Comments Blood Pressure 152/116 12/30/2024 1:33 PM CDT DId not take B/P medication today Pulse 94 12/30/2024 1:33 PM CDT Temperature 36.1 C (97 F) 12/30/2024 1:33 PM CDT Respiratory Rate 20 12/30/2024 1:33 PM CDT Oxygen Saturation 100% 12/30/2024 1:3 3 PM CDT Inhaled Oxygen Concentration - - Weight 122.5 kg (270 lb) 12/30/2024 1:3 3 PM CDT Height 175.3 cm (5' 9 ) 12/30/2024 1:33 PM CDT Body Mass Index 39.87 12/30/2024 1:33 PM CDT Plan of Treatment Upcoming Encounters Date Type Department Care Team (Late st Contact Info) Description 01/15/2025 1:00 PM CDT Office Visit [facility] Multispecialty Care - [facility] [address] [place] [phone] Annette Chandler, [place] [address] [place] [address] Karin Lazo NP [address] [facility] [address] [place] [address] Health Maintenance Due Date Last Done Comments Hepatitis C 2004 Hepatitis B Vaccines (1 of 3 - 19+ 3-dose series) 2005 Annual Physical 01/15/2022 01/15/2021 COVID-19 Vaccine ( - 2024-2 5 season) 2024 04/20/2021, 03/30/2021 DTaP, Tdap and Td Vaccines ( 4 - Td or Tdap) 11/08/2028 11/08/2018, 10/31/2014, 10/10/2014 Pneumococcal Vaccine: Pediatrics (0 to 5 Years) and At-Risk Patients (6 to 49 Years) Completed 06/07/2024 PHQ-2 (Physician [place]) Completed 12/19/2024 HPV Vaccines Aged Out No longer eligi ble based on patient's age to complete this topic Meningococcal B Vaccine Aged Out No l onger eligible based on patient's age to complete this topic Meningococcal Vaccine Aged Out No argenis kasi eligible based on patient's age to complete this topic RSV Immunizations Under 20 Months Aged Out No longer eligible b ased on patient's age to complete this topic Procedures Procedure Name Priority Date/Time Associated Diagnosis Comments MRI BRAIN WO CON Routine 01/08/2025 12:4 2 PM CDT Pseudopapilledema of both optic discs Exotropia Visual changes Raised intraocular pressure of both eyes Ptosis of eyelid, left XR RIBS LT+PA CHEST STAT 12/30/2024 2 :06 PM CDT ANTINUCLEAR ANTIBODY WI RFX Routine 12/19/2024 2:27 PM CDT Polyarthralgia Family history of lupus erythematosus ENA2 (SSA & SSB) Routine 12/19/2024 2:27 PM CDT Polyarthralgia Family history of lupus erythematosus RHEUMATOID FACTOR, QUANT Routine 12/19/2024 2:27 PM CDT Polyarthralgia Family history of lupus erythematosus C-REACTIVE PROTEIN Routine 12/19/2024 2: 27 PM CDT Polyarthralgia Family history of lupus erythematosus SED RATE, ERYTHROCYTE (ESR) Routine 12/19/2024 2:27 PM CDT Polyarthralgia Family history of lupus erythematosus THYROID STIM HORMONE TSH Routine 12/19/2024 2:27 PM CDT Polyarthralgia THYROXINE, FREE (FT4) Routine 12/19/2024 2:27 PM CDT Polyarthralgia THYROID PEROXIDASE ANTIBODY Routine 12/19/2024 2:27 PM CDT Polyarthralgia VITAMIN D, 25 OH Routine 12/19/2024 2:27 PM CDT Vitamin D deficiency MAGNESIUM Routine 12/19/2024 2:27 PM CDT Polyarthralgia Anxiety COMPREHENSIVE METABOLIC PANEL Routine 12/19/2024 2:27 PM CDT Polyarthralgia VITAMIN B-12 Routine 12/19/2024 2:27 PM CDT Vitamin B12 deficiency Anxiety CYCLIC CITRULLINATED PEPTIDE (CCP)ANTIBODY(IGG) Routine 12/19/2024 2:14 PM CDT Polyarthralgia Family history of lupus erythematosus FOLIC ACID SERUM Routine 12/19/2024 2:14 PM CDT Vitamin B12 deficiency Anxiety COLLECTION VENOUS BLOOD VENIPUNCTURE Routine 12/19/2024 1:42 PM CDT Vitamin D deficiency Vitamin B12 deficiency Polyarthralgia Family history of lupus erythematosus Anxiety URINALYSIS AUTO DIP Routine 12/19/2024 Nocturia Urinary urgency COLLECTION VENOUS BLOOD VENIPUNCTURE Routine 11/15/2024 10:23 AM [employer] Chronic pain of left knee Redness and swelling of knee COMPREHENSIVE METABOLIC PANEL Routine 11/15/2024 10:23 AM [employer] Chronic pain of left knee Redness and swelling of knee URIC ACID BLOOD Routine 11/15/2024 10:23 AM [employer] Chronic pain of left knee Redness and swelling of knee from Last 3 Months Results * MRI BRAIN WO CON (01/08/2025 [...] 1:43 PM Narrative 01/09/2025 4:09 PM CDT [address] [address] EXAMINATION: MRI brain without contrast. DATE: 01/08/2025 [...] Procedure Note Scot Good MD - 01/09/2025 [facility] [address] [place], [place] [address] EXAMINATION: MRI brain without contrast. DATE: 01/08/2025 [...] Annette Chau DO, 01/08/2025 1:43 PM Annette Chandler [facility] MRI Final Result * XR RIBS LT+PA CHEST (12/30/2024 2:06 PM CDT) Anatomical Region Laterality Modality Chest Radiographic Kimi ging 12/30/2024 2:14 PM CDT Impressions 12/30/2024 2:15 PM CDT IMPRESSION: No acute pulmonary findings. There is no left rib fracture noted. Referred By: Interpreted By: Claudio Perry MD, 12/30/2024 2:14 PM Narrative 12/30/2024 2:[place] [address] Examination: XR RIBS LT+PA CHEST Exam time: 12/30/2024 1:56 PM Indication: Cough. Left rib pain. Comparison: Chest 07/19/2024 Findings: Upright PA view of the chest and 2 views of the left ribs were obtained. The heart size is normal. No vascular congestion. No airspace consolidation, pleural effusion, or pneumothorax. There is no left rib fracture noted. Procedure Note Claudio Perry MD - 12/30/2024 [place] [id number] Examination: XR RIBS LT+PA CHEST Exam time: 12/30/2024 1:56 PM Indication: Cough. Left rib pain. Comparison: Chest 07/19/2024 Findings: Upright PA view of the chest and 2 views of the left ribs wereobtained. The heart size is normal. No vascular congestion. No airspaceconsolidation, pleural effusion, or pneumothorax. There is no left ribfracture noted. IMPRESSION: No acute pulmonary findings. There is no left rib fracturenoted. Referred By: Interpreted By: Claudio Perry MD, 12/30/2024 2:14 PM Néstor Brooks MD GENERAL IMAGING Final Result * ANTINUCLEAR ANTIBODY WI RFX (ADALID) (12/19/2024 2:27 PM CDT) ADALID 0.3 12/20/2024 3:[address] [facility] Comment: NEGATIVE: <0.7 RATIO ADALID PROFILE AND TITER NOT PERFORMED THE ADALID SCREEN TESTS FOR THE FOLLOWING ANTIBODIES BY EIA: SSA1 (RO), SSB1 (LA), ETIENNE, SCL70, JO1, CENTROMERE, SERVICE DEVELOPER HISTONE MUST BE ORDERED SEPARATELY DNA (DS) ANTIBODY <0.6 IU/ML 025 3:[address] [facility] Comment: NEGATIVE: <10 IU/mL EQUIVOCAL: 10 to 15 IU/mL POSITIVE: >15 IU/mL THIS QUANTITATIVE ASSAY IS CALIBRATED TO THE [employer]'S WO/80 STANDARD. THE LEVEL OF dsDNA AUTOANTIBODY GERERALLY CORRELATES WITH THE LEVEL OF DISEASE ACTIVITY IN SYSTEMIC LUPUS ERYTHMATOSUS 12/19/2024 2:27 PM CDT Annette Wes [facility] Final Result Performing Organization Address City/[facility]/ZIP Co de Phone Number [facility] [address] [place] [address], [phone] * RHEUMATOID FACTOR, QUANT (12/19/2024 2:27 PM CDT) RHEUMATOID FACTOR <10 <15 IU/ML 12/19/2024 9:[address] [facility] 12/19/2024 2:27 PM CDT [facility] Final Result Performing Organization Address City/[facility]/ZIP Co de Phone Number [facility] [address] [place] [address], [phone] * THYROID PEROXIDASE ANTIBODY (12/19/2024 2:27 PM CDT) THYROID PEROXIDASE MICROSOMAL AB <4 IU/ML 12/20/2024 3:[address] [facility] Comment: NEGATIVE: < 25 IU/ML EQUIVOCAL: 25 to 35 IU/ML POSITIVE: > 35 IU/ML 12/19/2024 2:27 PM CDT Annette Chandler [facility] Final Result Performing Organization Address City/[facility]/ZIP Co de Phone Number [facility] [address] [place] [address], [place] [phone] * ENA2 (SSA & SSB) (12/19/2024 2:27 PM CDT) SSA ANTIBODY <0.4 0.0 - 6.9 U/mL 12/26/2024 11:[address] [facility] Comment: NEGATIVE: <7 U/mL EQUIVOCAL: 7 to 10 u/mL POSITIVE: >10 U/mL SSA AND/OR SSB AUTOANTIBODIES ARE DETECTED IN 60% TO 90% OF PATIENTS WITH SJOGREN'S SYNDROME AND IN 20% TO 40% OF PATIENTS WITH SYSTEMIC LUPUS ERYTHEMATOSUS. SSB ANTIBODY <0.4 0.0 - 6.9 U/mL 12/26/2024 11:[address] [facility] Comment: NEGATIVE: <7 U/mL EQUIVOCAL: 7 to 10 u/mL POSITIVE: >10 U/mL SSA AND/OR SSB AUTOANTIBODIES ARE DETECTED IN 60% TO 90% OF PATIENTS WITH SJOGREN'S SYNDROME AND IN 20% TO 40% OF PATIENTS WITH SYSTEMIC LUPUS ERYTHEMATOSUS. 12/19/2024 2:27 PM CDT Annette Chandler [facility] Final Result Performing Organization Address City/[facility]/ZIP Co de Phone Number [facility] [address] [place] [address], [place] [phone] * VITAMIN B-12 (12/19/2024 2:27 PM CDT) VITAMIN B12 S/P/B 648 193 - 986 PG/ML 12/20/2024 11:19 AM CDT [facility] 12/19/2024 2:27 PM CDT [facility] Final Result Performing Organization Address [facility] Co de Phone Number [facility] N[facility]LESRTHUSarah GUSTINE [address] [place] [address], [place] [phone] * (ABNORMAL) SED RATE, ERYTHROCYTE (ESR) (12/19/2024 2:27 PM CDT) ESR 20(H) 0 - 19 MM/HR 12/19/2024 7:35 PM CDT [facility] 12/19/2024 2:27 PM CDT Annette [facility] Final Result Performing Organization Address [facility] de Phone Number [facility] [address] [id number] [place] [address], [place] [phone] * (ABNORMAL) COMPREHENSIVE METABOLIC PANEL (12/19/2024 2:27 PM CDT) Only the most recent of2 resultswithin the time period is included. SODIUM S/P/B 137 136 - 145 MMOL/L 12/20/2024 11:19 AM CDT [facility] POTASSIUM S/P/B 4.3 3.5 - 5.1 MMOL/L 12/20/2024 11:19 AM CDT [facility] CHLORIDE S/P/B 101 98 - 107 MMOL/L 12/20/2024 11:19 AM CDT [facility] CO2 25.2 21 - 32 MMOL/L 12/20/2024 11:19 AM CDT [facility] GLUCOSE 94 70 - 99 MG/DL 12/20/2024 11:19 AM CDT [facility] BUN 18 7 - 18 MG/DL 12/20/2024 11:19 AM T [facility] CREATININE S/P/B 0.74 0.55 - 1.02 MG/DL 12/20/2024 11:19 AM [facility] CALCIUM S/P/B 9.8 8.4 - 10.5 MG/DL 12/20/2024 11:19 AM [facility] BILIRUBIN TOTAL S/P/B 0.3 0.2 - 1.0 MG/DL 12/20/2024 11:19 AM [facility] ALKALINE PHOSPHATASE S/P/B 115(H) 37 - 98 U/L 12/20/2024 11:19 AM [facility] AST 15 15 - 37 U/L 12/20/2024 11:19 AM [facility] ALT 28 14 - 59 U/L 12/20/2024 11:19 AM [facility] TOTAL PROTEIN S/P/B 7.7 6.4 - 8.2 G/DL 12/20/2024 11:19 AM [facility] ALBUMIN S/P/B 4.2 3.4 - 5.0 G/DL 12/20/2024 11:19 AM [facility] ANION GAP 10.8 5 - 15 MMOL/L 12/20/2024 11:19 AM [facility] Comment:REFERENCE RANGE NOT ESTABLISHED OSMOLALITY (CALC) 286 MOSM/KG 025 11:19 AM T [facility] Comment:REFERENCE RANGE NOT ESTABLISHED GFR ESTIMATE >90 >90 ML/MIN/1. 73 M2 12/20/2024 11:19 AM [facility] GFR NOTES GFR REFERENCE S: 12/20/2024 11:19 AM [facility] Comment: THE ESTIMATED GFR IS CALCULATED USING THE 2020 CKD-EPI EQUATION. THE FOLLOWING CATEGORIES FOR GRADING RENAL FUNCTION ARE RECOMMENDED BY THE INTERNATIONAL SOCIETY OF NEPHROLOGY (KDIGO 2012 CLINICAL PRACTICE GUIDELINE). G1,NORMAL OR HIGH: >89 ml/min/1.73 m2 G2,MILDLY DECREASED: 60-89 ml/min/1.73 m2 G3A,MILDLY TO MODERATELY DECREASED: 45-59 ml/min/1.73 m2 G3B,MODERATELY TO SEVERELY DECREASED: 30-44 ml/min/1.73 m2 G4,SEVERELY DECREASED: 15-29 ml/min/1.73 m2 G5,KIDNEY FAILURE: <15 ml/min/1.73 m2 12/19/2024 2:27 PM CDT us MaganaAnnette Wes [facility] Final Result Performing Organization Address [facility]/ZIP Co de Phone Number [address] [address], * (ABNORMAL) C-REACTIVE PROTEIN (12/19/2024 2:27 PM CDT) C-REACTIVE PROTEIN 2.18(H) <0.30 mg/dL 12/20/2024 11:19 AM CDT [facility] 12/19/2024 2:27 PM CDT Annette Chandler [facility] Final Result Performing Organization Address [facility] Co de Phone Number [address] [address], [place] [phone] * THYROXINE, FREE (FT4) (12/19/2024 2:27 PM CDT) FREE T4 1.02 0.76 - 1.46 NG/DL 12/19/2024 9:[address] [facility] 12/19/2024 2:27 PM CDT Annette Hickmanrenetta [facility] Final Result [facility] [address] [place] [address], [phone] * THYROID STIM HORMONE TSH (12/19/2024 2:27 PM CDT) TSH 1.498 0.358 - 3.740 uIU/ML 12/20/2024 11:19 AM CDT [facility] 12/19/2024 2:27 PM CDT Annette [facility] Final Result Performing Organization Address [facility] [facility] Co de Phone Number [facility] [address] [place] [address], [place] [phone] * (ABNORMAL) VITAMIN D 25 OH (12/19/2024 2:27 PM CDT) [facility] VITAMIN D 25 HYDROXY TOTAL S/P/B 14.0(L) 30 - 100 NG/ML 12/20/2024 11:19 AM CDT [facility] Comment: DEFICIENT <20 INSUFFICIENT 20-30 SUFFICIENT 30-100 12/19/2024 2:27 PM CDT us Annette [facility] Final Result Performing Organization Address City[facility] Co de Phone Number [facility] [address] [place] [address], [place] [phone] * MAGNESIUM (12/19/2024 2:27 PM CDT) Pathologist [facility] MAGNESIUM 1.8 1.8 - 2.4 MG/DL 12/20/2024 11:19 AM CDT [facility] 12/19/2024 2:27 PM CDT us Annette [facility] Final Result Performing Organization Address [facility] Co de Phone Number [facility] [address] [place] [address], * CYCLIC CITRULLINATED PEPTIDE (CCP)ANTIBODY(IGG) (12/19/2024 2:14 PM CDT) [facility] CITRULLINE PEPTIDE ANTIBODY <16 UNITS ben[facility]e [facility] Comment: Reference Range Negative: <20 Weak Positive: 20-39 Moderate Positive: 40-59 Strong Positive: >59 12/19/2024 2:14 PM CDT 12/21/2024 5:19 AM CDT Narrative Resulting Agency Comment Performing Organization Information: Site ID: [place] Name: [email or web address] Address: [address] [place] [address] Director: Beatriz Fairbanks MD [facility] Final Result Performing Organization Address [facility] de Phone Number benchee - MARY KAILA [employer] [facility] [id number] [place] [id number] * FOLIC ACID SERUM (12/19/2024 2:14 PM CDT) [facility] FOLATE 10.2 8.6 - 58.9 NG/ML 12/19/2024 7:56 PM CDT [facility] 12/19/2024 2:14 PM CDT [facility] Final Result Performing Organization Address [facility] Co de Phone Number [facility] [address] [place] [address], * (ABNORMAL) URINALYSIS AUTO DIP (12/19/2024) Pathologist [facility] COLOR (U) PALE YELLOW YELLOW [facility] TRANSPARENCY CLEAR [facility] GLUCOSE (U) NEGATIVE NEGATIVE MG/DL [facility] BILIRUBIN (U) NEGATIVE NEGATIVE [facility] KETONES MG/DL (U) NEGATIVE NEGATIVE MG/DL [facility] SPECIFIC GRAVITY (U) 1.020 1.001 - 1.035 [facility] BLOOD (U) SMALL (1+, Non Hemolyzed)(A ) NEGATIVE [facility] U PH 6.0 5.0 - 9.0 [facility] PROTEIN (U) NEGATIVE NEGATIVE mg/dL [facility] UROBILINOGEN 0.2 0.2 - 1.0 EU/dL = mg/dL [facility] NITRITES NEGATIVE NEGATIVE MG/DL [facility] LEUKOCYTES (U) NEGATIVE NEGATIVE [facility] URINE SPECIMEN OBTAINED BY CLEAN CATCH PROCEDURE / Unknown 12/19/2024 Annette Chandler [facility] URINE ORDERABLES Final Result Performing Organization Address [facility] Co de Phone Number [facility] [address] [place] [address], [place] * URIC ACID BLOOD (11/15/2024 10:23 AM SUPERVISOR PILE DRIVING) URIC ACID 5.0 2.6 - 6.0 MG/DL 11/15/2024 3:25 PM SUPERVISOR PILE DRIVING [facility] 11/15/2024 10:2 3 AM SUPERVISOR PILE DRIVING Annette Chandler [facility] LABORATORY Final Result Performing Organization Address City/[facility] Co de Phone Number [facility] [address] [place] [address], [place] [phone] from Last [address] [place] [address] [address] [place] [address] Care Teams Card Services Specialist Relationship Specialty Start Date End Date Annette Chandler FNP [address] [place] [address] PCP - General Nurse Practitioner Family 09/21/19 Syeda Baires [facility] [place] [address] NURSE PRACTITIONER 09/21/19
--- OUTSIDE RECORDS SUMMARY | 2025-01-09 18:36 | XMS_ITS | Encounter Summary ---
Author Organization [facility] Address [address] [place] [address] Care Team Providers Care Can Filling And Closing Machine Tender Name Role Phone Sol Harvey Primary Care Provider Syeda Baires MAINTENANCE FOREMAN Unavailable [phone] Encounter Details Date Type Department Care Team (Late st Contact Info) Description 02/13/2021 [employer] Message Enc [facility] Family & Internal Medicine [facility] [address] [place] [address] Sol Harvey FNP [address] [place] [address] RE: Referral Request Social History [...] Sex Assigned at Female 10/15/2024 8:17 AM MEDICAL SCIENTIFIC LIAISON Legal Sex Female 6:09 PM CDT Gender [...] [facility] Mult[facility]pecialty Care - [facility] [address] [facility] [address] [place] [address] Sol Harvey FNP [address] [place] [address] Karin Lazo NP 3 [facility] [address] [place] [address] documented as of this encounter Visit Diagnoses Not on filedocumented in this encounter Additional Health Concerns Infection Onset Date Last Indicated Resolved Time COVID-19 Rule Out 08/15/2023 08/15/2023 08/15/2023 9:04 AM MEDICAL SCIENTIFIC LIAISON COVID-19 Rule Out 07/03/2024 07/03/2024 07/03/2024 11:34 AM CDT COVID-19 Rule Out 07/03/2024 07/03/2024 07/05/2024 1:09 AM CDT Assessment Noted Time PHQ-9 Depression Total Score: 15 2 021 12:22 PM CDT documented as of this encounter Care Teams Can Filling And Closing Machine Tender Relationship Specialty Start Date End Date Sol Harvey FNP [address] [place] [address] PCP - General Nurse Practitioner Family 09/21/19 Syeda Baires NP [address] [place] [address] NURSE PRACTITIONER 09/21/19 documented as of this encounter
--- OUTSIDE RECORDS SUMMARY | 2025-01-09 18:37 | XMS_ITS | Encounter Summary ---
Author Organization [facility] Address [address] [place] [address] Care Team Providers Care Telecommunications Engineer Name Role Phone Sol Harvey FEDERICA Primary Care Provider [phone] Syeda Baires FITTINGS TIGHTENER Unavailable [phone] Encounter Details Date Type Department Care Team (Late st Contact Info) Description 03/06/2024 Frugalot Message Enc [facility] Medical Group Multispecialty Care - [facility] [address] [facility], [address] [place] [address] Mary Arias APRN 3 [facility] [address] [place], [place] [phone] Pain management Social History Tobacco Use Types Packs/Day Years [...] Sex Assigned at Female 10/15/2024 8:17 AM SERVICES ADVISOR Legal Sex Female 6:09 PM CDT Gender Identity Female 02/13/2022 1:37 PM CDT Sexual Orientation Straight 02/13/2022 1: 37 PM CDT documented as of this encounter Plan of Treatment Upcoming Encounters Date Type Department Care Team (Late st Contact Info) Description 01/15/2025 1:00 PM CDT Office Visit [facility] Medical Group Multispecialty Care - [facility] [address] [facility] [address] [place] [address] Sol Harvey FNP [address] [place] [address] Karin Lazo NP 3 [facility] [address] [place] [address] documented as of this encounter Visit Diagnoses Not on filedocumented in this encounter Additional Health Concerns Infection Onset Date Last Indicated Resolved Time COVID-19 Rule Out 07/03/2024 07/03/2024 07/03/2024 11:34 AM CDT COVID-19 Rule Out 07/03/2024 07/03/2024 07/05/2024 1:09 AM CDT Assessment Noted Time PHQ-9 Depression Total Score: 0 11/04/19 24 1:33 PM SERVICES ADVISOR documented as of this encounter Care Teams Telecommunications Engineer Relationship Specialty Start Date End Date Sol Harvey FNP [address] [place] [address] PCP - General Nurse Practitioner Family 09/21/19 Syeda Baires NP [address] [place] [address] NURSE PRACTITIONER 09/21/19 documented as of this encounter
--- OUTSIDE RECORDS SUMMARY | 2025-01-09 18:37 | XMS_ITS | Encounter Summary ---
Author Organization [facility] Address [address] [place] [address] Care Team Providers Care Belt Worker Name Role Phone Sol Harvey Primary Care Provider Syeda Baires DESIGN VERIFICATION ENGINEER Unavailable Encounter Details Date Type Department Care Team (Late st Contact Info) Description 03/01/2022 Coolfire Solutionst Message Enc [facility] Medical Group Family & Internal Medicine [facility] [address] [place] [address] Sol Hravey FNP [address] [place], [place] [phone] Urine culture Social History Tobacco Use Types Packs/Day Years [...] Sex Assigned at Female 10/15/2024 8:17 AM PRESSURE STEAMER TENDER Legal Sex Female 6:09 PM CDT Gender Identity Female 02/13/2022 1:37 PM CDT Sexual Orientation Straight 02/13/2022 1: 37 PM CDT COVID-19 Exposure Response Date Recorded In the last 10 days, have yo u been in contact with someone who was confirmed or suspected to have Coronavirus/COVID-19? No / Unsure 03/01/2022 12:03 PM CDT documented as of this encounter Progress Notes * FEDERICA Warner - 03/01/2022 10:53 AM CDT She is on the correct abx She can come in for rocephin injection 1 gram IM documented in this encounter Plan of Treatment Upcoming Encounters Date Type Department Care Team (Late st Contact Info) Description 01/15/2025 1:00 PM CDT Office Visit [facility] Medical Group Multispecialty Care - [facility] 3 [facility], [address] [place] [address] Sol Harvey FNP [address] [place] [address] Karin Lazo NP 3 [facility] [address] [place] [address] documented as of this encounter Visit Diagnoses Not on filedocumented in this encounter Additional Health Concerns Infection Onset Date Last Indicated Resolved Time COVID-19 Rule Out 08/15/2023 08/15/2023 08/15/2023 9:04 AM PRESSURE STEAMER TENDER COVID-19 Rule Out 07/03/2024 07/03/2024 07/03/2024 11:34 AM CDT COVID-19 Rule Out 07/03/2024 07/03/2024 07/05/2024 1:09 AM CDT Assessment Noted Time PHQ-9 Depression Total Score: 4 03/20/20 9:12 AM CDT documented as of this encounter Care Teams Belt Worker Relationship Specialty Start Date End Date Sol Harvey FNP [facility] [place] [address] PCP - General Nurse Practitioner Family 09/21/19 Syeda Baires NP [address] [place] [address] NURSE PRACTITIONER 09/21/19 documented as of this encounter
--- OUTSIDE RECORDS SUMMARY | 2025-01-09 18:37 | XMS_ITS | Encounter Summary ---
Author Organization [facility] Address [address] [place] [address] Care Team Providers Care Voyage Management System Operator Name Role Phone Sol Harvey FEDER[place] Primary Care Provider [phone] Syeda Baires PMP PROJECT MANAGER Unavailable [phone] Reason for Visit * Auth/Cert (Routine) Specialty Diagnoses / Procedures Referred By Sapna t Referred To Contact Diagnoses Sacroiliitis Spinal stenosis of lumbar region without neurogenic claudication Sacroiliitis (CMS/HCC) [M46.1] Spinal stenosis of lumbar region without neurogenic claudication [M48.061] Procedures BLOCK SACROILIAC JOINT Susan Montanez MD [facility] [address] [place] [address] Phone: tel: fax: Referral ID Status Reason Start Date Expiration Date Visits Re quested Visits Authorized [id number] 1 1 Encounter Details Date Type Department Care Team (Late st Contact Info) Description 04/24/2024 Hospital Encounter [facility] [place], [place] [phone] [id number] Susan Montanez MD [facility] [address] [place] [address] Social History Tobacco Use Types Packs/Day Years [...] Sex Assigned at Female 10/15/2024 8:17 AM CREDIT PORTFOLIO MANAGER Legal Sex Female 6:09 PM CDT Gender Identity Female 02/13/2022 1:37 PM CDT Sexual Orientation Straight 02/13/2022 1: 37 PM CDT documented as of this encounter Functional Status * Over the past 2 weeks, how often have you been bothered by any of the following problems? Question Answer Date of Assessment Author Status Little interest or pleasure in doing things Not at all 12/19/2024 1:16 PM CDT Edna Merritt MA Active Feeling down, depressed, or hopeless Not at all 12/19/2024 1:16 PM CDT Ania Merritt MA Active Patient Health Questionnaire-2 Score 0 12/19/2024 1:16 PM CDT Jacqui Merritt MA Active * Calculated C-SSRS Risk Score (Lifetime/Recent) Answer Date of Assessment Author Status No Risk Indicated 12/30/2024 1:36 PM CDT Juan Storm RN Active * [place] Suicide Severity Rating Scale (Screener/Recent Self-Report) Question Answer Date of Assessment Author Status 1. Wish to be (Past 1 Month) No 12/30/2024 1:36 PM CDT Renetta Storm RN Acti ve 2. Non-Specific Active Suicidal Thoughts (Past 1 Month) No 12/30/2024 1:36 PM CDT Renetta Storm, RN Acti ve 6. Suicidal Behavior (Lifetime) No 12/30/2024 1:36 PM CDT Renetta Storm, RN Acti ve documented as of this encounter Plan of Treatment Upcoming Encounters Date Type Department Care Team (Late st Contact Info) Description 01/15/2025 1:00 PM CDT Office Visit [facility] Medical Group Multispecialty Care - [facility] [address] [facility] [address] [place] [address] Sol Harvey FNP [address] [place] [address] Karin Lazo, AMANDA 3 [facility] [address] [place] [address] documented as of this encounter Visit Diagnoses Not on filedocumented in this encounter Additional Health Concerns Infection Onset Date Last Indicated Resolved Time COVID-19 Rule Out 07/03/2024 07/03/2024 07/03/2024 11:34 AM CDT COVID-19 Rule Out 07/03/2024 07/03/2024 07/05/2024 1:09 AM CDT Assessment Noted Time PHQ-9 Depression Total Score: 0 11/04/19 24 1:33 PM CREDIT PORTFOLIO MANAGER documented as of this encounter Care Teams Voyage Management System Operator Relationship Specialty Start Date End Date Sol Harvey FNP [address] [place] [address] PCP - General Nurse Practitioner Family 09/21/19 Syeda Baires [facility] [place] [address] NURSE PRACTITIONER 09/21/19 documented as of this encounter
--- OUTSIDE RECORDS SUMMARY | 2025-01-09 18:37 | XMS_ITS | Encounter Summary ---
Author Organization [facility] Address [address] [place] [address] Care Team Providers Care Neck Band Setter Name Role Phone Sol Harvey Primary Care Provider Syeda Baires SALES BROKER Unavailable [phone] Encounter Details Date Type Department Care Team (Late st Contact Info) Description 03/23/2022 CleanEdisont Message Enc [facility] Medical Group Family & Internal Medicine [facility] [address] [place] [address] Sol Harvey FNP [address] [place] [address] Sleep study Social History Tobacco Use Types Packs/Day Years [...] Sex Assigned at Female 10/15/2024 8:17 AM PEER SPECIALIST Legal Sex Female 6:09 PM CDT Gender [...] encounter Progress Notes * FEDERICA Warner - 03/24/2022 7:29 AM CDT It is not us, it is her insurance company. We did send the letter, right? documented in this encounter Plan of Treatment Upcoming Encounters Date Type Department Care Team (Late st Contact Info) Description 01/15/2025 1:00 PM CDT Office Visit [facility] Medical Group Multispecialty Care - [facility] 3 [facility], [address] [place] [address] Sol Harvey FNP [address] [place] [address] Karin Lazo NP 3 [facility] [address] [place] [address] documented as of this encounter Visit Diagnoses Not on filedocumented in this encounter Additional Health Concerns Infection Onset Date Last Indicated Resolved Time COVID-19 Rule Out 08/15/2023 08/15/2023 08/15/2023 9:04 AM PEER SPECIALIST COVID-19 Rule Out 07/03/2024 07/03/2024 07/03/2024 11:34 AM CDT COVID-19 Rule Out 07/03/2024 07/03/2024 07/05/2024 1:09 AM CDT Assessment Noted Time PHQ-9 Depression Total Score: 4 03/20/20 9:12 AM CDT documented as of this encounter Care Teams Neck Band Setter Relationship Specialty Start Date End Date Sol Harvey FNP [address] [place] [address] PCP - General Nurse Practitioner Family 09/21/19 Syeda Baires NP [address] [place] [address] NURSE PRACTITIONER 09/21/19 documented as of this encounter
--- OUTSIDE RECORDS SUMMARY | 2025-01-09 18:37 | XMS_ITS | Encounter Summary ---
Author Organization [facility] Address [address] [place] [address] Care Team Providers Care Farm Equipment Engineer Name Role Phone Sol Harvey Primary Care Provider [phone] Syeda Baires REAL ESTATE PARALEGAL Unavailable [phone] Encounter Details Date Type Department Care Team (Late st Contact Info) Description 02/24/2022 Bueroservice24t Message Enc [facility] Medical Group Family & Internal Medicine [facility] [address] [place] [address] Sol Harvey FNP [address] [place] [address] Uti Social History Tobacco Use Types Packs/Day Years [...] Sex Assigned at Female 10/15/2024 8:17 AM UX SPECIALIST Legal Sex Female 6:09 PM CDT Gender Identity Female 02/13/2022 1:37 PM CDT Sexual Orientation Straight 02/13/2022 1: 37 PM CDT COVID-19 Exposure Response Date Recorded In the last 10 days, have yo u been in contact with someone who was confirmed or suspected to have Coronavirus/COVID-19? No / Unsure 02/25/2022 8:08 AM CDT documented as of this encounter Progress Notes * Alayna Mancera MA - 02/26/2022 7:52 AM CDT You already addressed this in a result note. * FEDERICA Warner - 02/26/2022 7:28 AM CDT Was there suppose to be something attached to this? documented in this encounter Plan of Treatment Upcoming Encounters Date Type Department Care Team (Late st Contact Info) Description 01/15/2025 1:00 PM CDT Office Visit [facility] Medical Group Multispecialty Care - [facility] 3 [facility], [address] [place] [address] Sol Harvey FNP [address] [place] [address] Karin Lazo NP 3 [facility] [address] [place] [address] documented as of this encounter Visit Diagnoses Not on filedocumented in this encounter Additional Health Concerns Infection Onset Date Last Indicated Resolved Time COVID-19 Rule Out 08/15/2023 08/15/2023 08/15/2023 9:04 AM UX SPECIALIST COVID-19 Rule Out 07/03/2024 07/03/2024 07/03/2024 11:34 AM CDT COVID-19 Rule Out 07/03/2024 07/03/2024 07/05/2024 1:09 AM CDT Assessment Noted Time PHQ-9 Depression Total Score: 4 03/20/20 21 9:12 AM CDT documented as of this encounter Care Teams Farm Equipment Engineer Relationship Specialty Start Date End Date Sol Harvey FNP [facility] [place] [address] PCP - General Nurse Practitioner Family 09/21/19 Syeda Baires NP [address] [place] [address] NURSE PRACTITIONER 09/21/19 documented as of this encounter
--- OUTSIDE RECORDS SUMMARY | 2025-01-09 18:37 | XMS_ITS | Encounter Summary ---
Author Organization [facility] Address [address] [place] [address] Care Team Providers Care Paramedic Name Role Phone Sol Harvey Primary Care Provider [phone] Syeda Baires FITNESS STUDIES TEACHER Unavailable [phone] Encounter Details Date Type Department Care Team (Late st Contact Info) Description 06/21/2022 Zeolifet Message Enc [facility] Medical Group Family & Internal Medicine [facility] [address] [place] [address] Sol Harvey FNP [address] [place] [address] Lunesta Social History Tobacco Use Types Packs/Day Years [...] Sex Assigned at Female 10/15/2024 8:17 AM BUTCHER MEAT Legal Sex Female 6:09 PM CDT Gender Identity Female 02/13/2022 1:37 PM CDT Sexual Orientation Straight 02/13/2022 1: 37 PM CDT documented as of this encounter Plan of Treatment Upcoming Encounters Date Type Department Care Team (Late st Contact Info) Description 01/15/2025 1:00 PM CDT Office Visit [facility] Medical Group Multispecialty Care - [facility] 3 [facility] [address] [place] [address] Sol Harvey FNP [address] [place] [address] Karin Lazo NP 3 [facility] [address] [place] [address] documented as of this encounter Visit Diagnoses Not on filedocumented in this encounter Additional Health Concerns Infection Onset Date Last Indicated Resolved Time COVID-19 Rule Out 08/15/2023 08/15/2023 08/15/2023 9:04 AM BUTCHER MEAT COVID-19 Rule Out 07/03/2024 07/03/2024 07/03/2024 11:34 AM CDT COVID-19 Rule Out 07/03/2024 07/03/2024 07/05/2024 1:09 AM CDT Assessment Noted Time PHQ-9 Depression Total Score: 4 03/20/20 21 9:12 AM CDT documented as of this encounter Care Teams Paramedic Relationship Specialty Start Date End Date Sol Harvey FNP [address] [place] [address] PCP - General Nurse Practitioner Family 09/21/19 Syeda Baires NP [address] [place] [address] NURSE PRACTITIONER 09/21/19 documented as of this encounter
--- OUTSIDE RECORDS SUMMARY | 2025-01-09 18:37 | XMS_ITS | Encounter Summary ---
Author Organization [facility] Address [address] [place] [address] Care Team Providers Care Academic Director Name Role Phone Sol Harvey Primary Care Provider [phone] Syeda Baires ANTIQUE AUTOMOBILES REPAIRER Unavailable [phone] Encounter Details Date Type Department Care Team (Late st Contact Info) Description 04/09/2024 Social Plust Message Enc [facility] Medical Group Family & Internal Medicine [facility] [address] [place] [address] Sol Harvey FNP [address] [place], [place] [phone] Endocrinology Social History Tobacco Use Types Packs/Day Years [...] Sex Assigned at Female 10/15/2024 8:17 AM TWISTING FRAME OPERATOR Legal Sex Female 6:09 PM CDT Gender Identity Female 02/13/2022 1:37 PM CDT Sexual Orientation Straight 02/13/2022 1: 37 PM CDT documented as of this encounter Plan of Treatment Upcoming Encounters Date Type Department Care Team (Late st Contact Info) Description 01/15/2025 1:00 PM CDT Office Visit [facility] Medical Group Multispecialty Care - [facility] [address] [facility] [address] [place] [address] Sol Harvey FNP [address] [place] [address] Karin Lazo NP 3 [facility] [address] [place] [address] documented as of this encounter Visit Diagnoses Not on filedocumented in this encounter Additional Health Concerns Infection Onset Date Last Indicated Resolved Time COVID-19 Rule Out 07/03/2024 07/03/2024 07/03/2024 11:34 AM CDT COVID-19 Rule Out 07/03/2024 07/03/2024 07/05/2024 1:09 AM CDT Assessment Noted Time PHQ-9 Depression Total Score: 0 11/04/19 24 1:33 PM TWISTING FRAME OPERATOR documented as of this encounter Care Teams Academic Director Relationship Specialty Start Date End Date Sol Harvey FNP [address] [place] [address] PCP - General Nurse Practitioner Family 09/21/19 Syeda Baires NP [address] [place] [address] NURSE PRACTITIONER 09/21/19 documented as of this encounter
--- OUTSIDE RECORDS SUMMARY | 2025-01-09 18:37 | XMS_ITS | Encounter Summary ---
Author Organization [facility] Address [address] [place] [id number] Care Team Providers Care Engineering Leader Name Role Phone Sol Harvey Primary Care Provider Syeda Baires FIREBOAT OPERATOR Unavailable [phone] Encounter Details Date Type Department Care Team (Late st Contact Info) Description 04/03/2024 Phanfaret Message Enc [facility] Family & Internal Medicine [facility] [address] [place] [address] Sol Harvey FNP [address], [place] [id number] Refill Social History Tobacco Use Types Packs/Day Years [...] Sex Assigned at Female 10/15/2024 8:17 AM MATERIALS INSPECTOR Legal Sex Female 6:09 PM CDT Gender Identity Female 02/13/2022 1:37 PM CDT Sexual Orientation Straight 02/13/2022 1: 37 PM CDT documented as of this encounter Progress Notes * FEDERICA Warner - 04/04/2024 12:55 PM CDT Ill send it * Alayna Mancera MA - 04/04/2024 12:00 PM CDT No 1000 mg either * FEDERICA Warner - 04/04/2024 11:47 AM CDT You can send the 1000 mg take 2 tabs bid dsp 120 with refill * Alyana Mancera MA - 04/04/2024 9:56 AM CDT Can not find 500 mg * FEDERICA Warner - 04/04/2024 9:10 AM CDT Acyclovir 500 mg bid dsp 60 1 refill documented in this encounter Plan of Treatment Upcoming Encounters Date Type Department Care Team (Late st Contact Info) Description 01/15/2025 1:00 PM CDT Office Visit [facility] Multispecialty Care - [facility] [address] [place] [id number] Sol Harvey FNP [address] [place] [address] Karin Lazo NP [address] [facility] [address] [place] [id number] documented as of this encounter Visit Diagnoses Not on filedocumented in this encounter Additional Health Concerns Infection Onset Date Last Indicated Resolved Time COVID-19 Rule Out 07/03/2024 07/03/2024 07/03/2024 11:34 AM CDT COVID-19 Rule Out 07/03/2024 07/03/2024 07/05/2024 1:09 AM CDT Assessment Noted Time PHQ-9 Depression Total Score: 0 11/04/19 24 1:33 PM MATERIALS INSPECTOR documented as of this encounter Care Teams Engineering Leader Relationship Specialty Start Date End Date Sol Harvey FNP [address] [place] [id number] PCP - General Nurse Practitioner Family 09/21/19 Syeda Baires NP [address] [place] [address] [place] [address] NURSE PRACTITIONER 09/21/19 documented as of this encounter
[2025-01-09 18:42] LABS: BEDSIDEPREGUCG Negative (Negative)
--- NOTE | 2025-01-09 19:28 | PC.NURSE ---
Received report from LISA Singleton for continuos of care. Pt lying on stretcher, respirations even and unlabored. Pt AOx4, present c/o n/a and diarrhea. Pt on continuos cardiac rn and continuos pulse oximeter.
[2025-01-09 19:44] LABS: Reflex Lactic Acid Yes or No Add Lactic
[2025-01-09 20:00] VITALS: BP 143/93; PULSE 98; RESP 20; O2SAT 97
[2025-01-09 20:01] VITALS: BP 143/93; PULSE 99; RESP 20; O2SAT 97
--- NOTE | 2025-01-09 20:53 | PC.NURSE ---
pt c/o nausea, refer to MAR for medication administration.
[2025-01-09 20:59] LABS: Anion Gap 14 mmol/L (4-12); Blood Urea Nitrogen 23 mg/dL (7-17); Calcium 8.7 mg/dL (8.4-10.2); Carbon Dioxide 16 mmol/L (22-30); Chloride 106 mmol/L (98-107); Estimated CRCL calculation 154 ml/min; Estimated Glomerular Filt Rate > 60; Glucose 99 mg/dL (65-110); Lactic Acid 2.4 mmol/L (0.7-2.0); Potassium 4.1 mmol/L (3.4-5.0); Sodium 136 mmol/L (137-145)
[2025-01-09] MEDS: SODIUM CHLORIDE 0.9% IV 1,000 ML 125 ML IV CONT (21:07)
[2025-01-09 21:45] VITALS: BP 145/82; PULSE 100; RESP 19; O2SAT 99
[2025-01-09 22:00] VITALS: BP 142/58; PULSE 99; RESP 18; TEMP 36.6; O2SAT 99
--- NOTE | 2025-01-09 22:19 | ADMGEN ---
This patient, Sangeeta Vásquez, was admitted to 2 Medical Room 260-. Patient/family oriented to hospital policies and general routines including ID bracelet, bed and alarms, visiting hours, pain management, procedures, bathroom and other care routines, personal items, smoking policy, room service/diet, and visiting hours. Information on how to activate the Rapid Response Team has been discussed. Patient/Family are encouraged to report perceived risks to care and to ask questions if they do not understand what they are told or what they should do.
[2025-01-09] MEDS: PROMETHAZINE HCL 25 MG/ML AMPUL 12.5 MG IV PUSH (22:28)
[2025-01-09 22:33] VITALS: BMI 40.8
--- NOTE | 2025-01-10 00:44 | P.HP_ITS ---
H&P: HPI History of Present Illness Date/Time: 01/10/25 00:44 Chief Complaint: Nausea and vomiting Narrative: 39-year-old female with past medical history of POTS, morbid obesity, essential hypertension, anxiety, depression, prior cholecystectomy, hysterectomy, irritable bowel syndrome and GERD who presented to the ER via EMS with nausea, vomiting and diarrhea that started today just a few hours prior to arriving to the ER. Patient was drinking coffee from [employer] when she acutely became nauseous and had multiple episodes of nausea vomiting followed by diarrhea a couple of hours later. She reported some lower abdominal cramping and episodes of diaphoresis. She reports that her pain was moderate in intensity. Her 5-year-old son has been sick with GI symptoms symptoms over the weekend. The patient herself had recently recovered from influenza. She denies any recent travel or antibiotic exposure. C diff PCR was performed in the ER and was negative. She reports that she did have an episode of bowel incontinence in route to the ER. She has not had any further diarrhea since admission. She still is having intermittent episodes of nausea and is required antiemetic therapy with Zofran and Phenergan. She does report that she feels somewhat better. She denies any hematochezia, melena or hematemesis. She was drinking coffee so her emesis was brown in color. She has not had any documented fevers. She reports that she was able to pass urine after arriving to the medical floor. She denies any dysuria changes in urinary frequency. She denies any chest pain or shortness of breath. She did have to use her rescue inhaler couple of weeks ago when she had influenza but has otherwise not had any symptoms for asthma. She reports that she has irritable bowel syndrome with mixed diarrhea and constipation. Review of Systems 2 Review of Systems: 12 systems were reviewed with pertinent positives and negatives per HPI. Except as documented in the HPI, all other systems were reviewed and are negative. [facility] Past Medical History Medical History (Updated 01/10/25 @ 03:54 by Chayito Lemons DO) Kidney stones Irritable bowel syndrome Obstructive sleep apnea Polysomnogram approximately 11/2023. Intolerant to CPAP Migraine Asthma Mild intermittent GERD (gastroesophageal reflux disease) Essential hypertension Morbid obesity with BMI of 40.0-44.9, adult POTS (postural orthostatic tachycardia syndrome) Surgical History Surgical History (Updated 01/10/25 @ 03:54 by Chayito Lemons DO) History of H/O hysterectomy for benign disease Hysterectomy due to endometriosis and fibroids. She still has her ovaries. H/O lumbosacral spine surgery L5-S1 Hx of cholecystectomy Family History Family History Mother Diabetes mellitus Hyperlipidemia Hypertension Father Diabetes mellitus Hyperlipidemia Hypertension Social History Social History (Updated 01/10/25 @ 03:52 by Chayito Lemons DO) Social History: The patient lives with her . 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 She is a lifelong nonsmoker does not drink alcohol. She does use marijuana. Code status: Full code Surrogate decision maker: Smoking status: Never smoker Alcohol intake: never Substance use: current Substance use type: marijuana Do You Feel Safe in your Home?: Yes Lack of Transportation: No Lack of Food: Never True Current Housing: I Have Housing Concerned About Future Housing: No Difficulty Paying Gas/Electric Bills: No Difficulty Paying for Meds: No Currently Unemployed: No Education: High School Diploma/GED Difficulty w/ Childcare or Family Care: No Spiritual care concerns: No Meds Home Medications and Allergies Home Medications ?Medication ?Instructions ?Recorded ?Confirmed ?Type albuterol sulfate 90 mcg/actuation 2 puff inhalation PRN PRN 01/09/25 01/09/25 History aerosol inhaler shortness of breath or wheezing buspirone 30 mg tablet 30 mg PO Q12H 01/09/25 01/09/25 History cetirizine 10 mg tablet (24Hour 10 mg PO DAILY 01/09/25 01/09/25 History Allergy) lisinopril 20 1 tablet PO DAILY 01/09/25 01/09/25 History mg-hydrochlorothiazide 12.5 mg tablet metoprolol succinate 25 mg 25 mg PO DAILY 01/09/25 01/09/25 History tablet,extended release 24 hr pantoprazole 40 mg granules 40 mg PO DAILY 01/09/25 01/09/25 History delayed-release for susp in packet (Protonix) sertraline 100 mg tablet 100 mg PO HS 01/09/25 01/09/25 History venlafaxine 75 mg capsule,extended 75 mg PO QPM 01/09/25 01/09/25 History release 24 hr Allergies Allergy/AdvReac Type Severity Reaction Status Date / Time ketorolac (From Toradol) Allergy Hives Verified 01/09/25 20:36 Vital Signs Vital Signs - 24 hr 01/09/25 17:10 01/09/25 20:00 01/09/25 20:01 Temperature 97.4 F L Pulse Rate 112 H 98 99 Respiratory Rate 25 H 20 20 Blood Pressure 157/130 H 143/93 H 143/93 H Pulse Oximetry 100 97 97 Oxygen Delivery Room Air 01/09/25 21:45 01/09/25 22:00 01/09/25 22:30 Temperature 97.9 F Pulse Rate 100 99 Respiratory Rate 19 18 Blood Pressure 145/82 H 142/58 H Pulse Oximetry 99 99 Oxygen Delivery Room Air Exam 2 Narrative: Weight 125.6 kg BMI 40.9 Const: Other: Obese, mildly ill-appearing, appears stated age HENMT: Other: Crowded posterior oropharynx, mucous membranes are tacky, no oral pharyngeal erythema Eyes: Other: No scleral icterus, no conjunctival pallor Neck: Other: Large neck circumference, no obvious lymphadenopathy, trachea midline Resp: Other: Clear to auscultation bilaterally, no increased work of breathing Cardio: Other: Sinus tachycardia, 2+ bilateral radial and pedal pulses, no murmur GI: Other: Generalized tenderness to palpation, no organomegaly, soft, obese, normoactive bowel sounds Skin: Other: Warm to touch, non jaundice, no pallor, mildly diaphoretic Neuro: Other: Alert oriented, speech is clear, no facial asymmetry, moves all extremities equally Extrem: Other: No clubbing, cyanosis or edema Psych: Other: Appropriate mood and affect, pleasant and cooperative, judgment and insight intact H&P: Results Labs Labs: Laboratory Tests 01/09/25 17:37 01/09/25 20:44 01/09/25 01/09/25 01/09/25 17:37 18:04 18:40 WBC 29.1 H RBC 6.21 H Hgb 17.2 H Hct 53.3 H MCV 85.8 MCH 27.7 MCHC 32.3 RDW 13.5 Plt Count 417 H MPV 9.4 Immature Gran % (Auto) Not Reportable Neut % (Auto) Not Reportable Lymph % (Auto) Not Reportable [place] % (Auto) Not Reportable Eos % (Auto) Not Reportable Baso % (Auto) Not Reportable Lymph # (Auto) Not Reportable [place] # (Auto) Not Reportable Eos # (Auto) Not Reportable Baso # (Auto) Not Reportable Abs Immat Gran (auto) Not Reportable Absolute Neuts (auto) Not Reportable Absolute Nucleated RBC Not Reportable Total Counted 100 Neutrophils % (Manual) 80 H Band Neutrophils % 4 Lymphocytes % (Manual) 12.0 L Monocytes % (Manual) 1 L Eosinophils % (Manual) 2 Basophils % (Manual) 1 Nucleated RBC % Not Reportable Abs Neuts (Manual) 24.44 H Abs Lymphs (Manual) 3.49 Abs Monocytes (Manual) 0.29 Absolute Eos (Manual) 0.58 H Abs Basophils (Manual) 0.29 H Platelet Estimate Increased Schistocytes None seen Sodium 138 Potassium 3.8 Chloride 102 Carbon Dioxide 12 L Anion Gap 24 H BUN 23 H Creatinine 0.81 Estim Creat Clear Calc 118 Estimated GFR > 60 Glucose 190 H Lactic Acid 4.7 H* Calcium 10.1 Magnesium 1.8 Total Bilirubin 0.7 AST 28 ALT 37 H Alkaline Phosphatase 155 H Troponin I < 0.012 Total Protein 9.0 H Albumin 5.2 H Lipase 71 Urine Color Dark yellow Urine Appearance Cloudy H Urine pH 5.5 Ur Specific [place] 1.031 Urine Protein 3+ H Urine Glucose (UA) Negative Urine Ketones 2+ H Ur Blood (Man) Negative Urine Nitrate Negative Urine Bilirubin Negative Urine Urobilinogen 1.0 Add Ur Microanalysis Reviewed Leukocyte Esterase Rfl Negative Urine RBC 3-5 H Urine WBC 0-5 Ur Squamous Epith Cells Few Urine Bacteria None seen Urine Casts 6-10 POC Urine HCG, Qual Negative C. difficile (PCR) Negative Influenza A (RT-PCR) Negative Influenza B (RT-PCR) Negative RSV (RT-PCR) Negative SARS-CoV-2 RNA (RT-PCR) Negative 01/09/25 20:44 WBC RBC Hgb Hct MCV MCH MCHC RDW Plt Count MPV Immature Gran % (Auto) Neut % (Auto) Lymph % (Auto) [place] % (Auto) Eos % (Auto) Baso % (Auto) Lymph # (Auto) [place] # (Auto) Eos # (Auto) Baso # (Auto) Abs Immat Gran (auto) Absolute Neuts (auto) Absolute Nucleated RBC Total Counted Neutrophils % (Manual) Band Neutrophils % Lymphocytes % (Manual) Monocytes % (Manual) Eosinophils % (Manual) Basophils % (Manual) Nucleated RBC % Abs Neuts (Manual) Abs Lymphs (Manual) Abs Monocytes (Manual) Absolute Eos (Manual) Abs Basophils (Manual) Platelet Estimate Schistocytes Sodium 136 L Potassium 4.1 Chloride 106 Carbon Dioxide 16 L Anion Gap 14 H BUN 23 H Creatinine 0.61 L Estim Creat Clear Calc 154 Estimated GFR > 60 Glucose 99 Lactic Acid 2.4 H Calcium 8.7 Magnesium Total Bilirubin AST ALT Alkaline Phosphatase Troponin I Total Protein Albumin Lipase Urine Color Urine Appearance Urine pH Ur Specific [place] Urine Protein Urine Glucose (UA) Urine Ketones Ur Blood (Man) Urine Nitrate Urine Bilirubin Urine Urobilinogen Add Ur Microanalysis Leukocyte Esterase Rfl Urine RBC Urine WBC Ur Squamous Epith Cells Urine Bacteria Urine Casts POC Urine HCG, Qual C. difficile (PCR) Influenza A (RT-PCR) Influenza B (RT-PCR) RSV (RT-PCR) SARS-CoV-2 RNA (RT-PCR) Impressions Chest X-Ray 01/09/25 17:50 IMPRESSION: No acute cardiopulmonary pathology. Abdomen/Pelvis CT 01/09/25 20:12 IMPRESSION: 1. No evidence of appendicitis, diverticulitis or intestinal obstruction. 2. Fat infiltration of the liver. Hepatomegaly. EKG:Test Date: 2025-01-09 17:24:42 Measurements Intervals [place] Rate: 100 P: 20 NC: 155 QRS: 20 QRSD: 89 T: 47 QT: 349 QTc: 452 Interpretive Statements SINUS TACHYCARDIA POSSIBLE LEFT ATRIAL ENLARGEMENT LOW QRS VOLTAGE IN PRECORDIAL LEADS BORDERLINE R WAVE PROGRESSION, ANTERIOR LEADS BORDERLINE ST ABNORMALITY- ANTEROLAT/INF LEADS BASELINE ARTIFACT- II, III, AVR, AVL, AVF, V2-V4 BORDERLINE ECG No previous ECG available for comparison Assessment and Plan Assessment and plan (1) Gastroenteritis: Code(s): K52.9 - Noninfective gastroenteritis and colitis, unspecified Status: Acute (2) Dehydration: Code(s): E86.0 - Dehydration Status: Acute (3) Polycythemia due to fall in plasma volume: Code(s): D75.1 - Secondary polycythemia Status: Acute (4) Lactic acidosis: Code(s): E87.20 - Acidosis, unspecified Status: Acute (5) Leukocytosis: Qualifiers: Leukocytosis type: unspecified Qualified Code(s): D72.829 - Elevated white blood cell count, unspecified Code(s): D72.829 - Elevated white blood cell count, unspecified Status: Acute Plan Patient presents with nausea vomiting and diarrhea of acute onset presumably due to viral gastroenteritis given exposure to her son who recently had GI symptoms. Patient's C diff PCR was negative in the ER. CT of the abdomen pelvis did not demonstrate any significant findings to elucidate cause for the patient's symptoms. The patient had met SIRS criteria on presentation but since that time tachycardia and tachypnea resolved with IV fluids. Will continue with supportive care with IV fluids, antiemetics and pain medications. Will repeat CBC in a.m. is patient does have marked leukocytosis which is likely due to Leukemoid reaction. The patient did have blood cultures obtained in the ER which are pending. Stool cultures have also been obtained and are pending. Will hold off on antibiotic therapy as bacterial cause of infection seems less likely. Will continue significant IV fluid hydration with normal saline at 150 mL an hour. Patient does still have some persistent lactic acidosis and has evidence of persistent anion gap acidosis on BMP. Will repeat BMP and CBC in a.m.. Will resume the patient's home anxiety medications and antihypertensives with the exception of hydrochlorothiazide given degree of dehydration. Will place patient on IV Protonix for the short term until her nausea vomiting have improved. Patient has been admitted as observation status. Quality VTE Prophylaxis VTE prophylaxis: pharmacologic ordered (Lovenox 40 mg subQ daily.) Hospitalist [facility] Advance Care Plan I have confirmed that the patient's Advanced Care Plan is present, code status is documented, or surrogate decision maker is listed in patient medical record.: Yes Medication Reconciliation I have utilized all available resources to obtain, update and review the patients current medications (includes all prescriptions, OTC, herbals, cannabis, and nutritional supplements).: Yes
[2025-01-10] MEDS: SERTRALINE HCL 50 MG TABLET 100 MG PO (01:16)
[2025-01-10] MEDS: ONDANSETRON INJ 4 MG/2 ML VIAL IV PUSH ×2 (02:12→08:13)
[2025-01-10] MEDS: SODIUM CHLORIDE 0.9% IV 1,000 ML 150 ML IV CONT ×2 (04:33→11:35)
[2025-01-10 04:39] LABS: Basophils Percent Auto 0.3 % (0.2-1.2); Eosinophils Absolute Auto 0.3 K/mm3 (0-0.3); Eosinophils Percent Auto 1.8 % (0-4.4); Hematocrit 44.5 % (37.0-47.0); Hemoglobin 14.6 g/dL (12.0-15.0); Immature Granulocyte Absolute 0.11 K/mm3 (0.00-0.031); Immature Granulocyte Percent A 0.7 % (0-0.5); Lymphocytes Absolute Auto 2.46 K/mm3 (0.9-3.2); Mean Corpuscular HGB Conc 32.8 g/dl (32-36); Mean Corpuscular Hemoglobin 28.4 pg (26-34); Mean Corpuscular Volume 86.6 fl (80-100); Mean Platelet Volume 9.3 fl (7.4-10.4); Monocytes Absolute Auto 0.9 K/mm3 (0.1-0.6); Neutrophils Absolute Auto 11.6 K/mm3 (1.3-6.7); Neutrophils Percent Auto 75.2 % (45.5-73.1); Platelet Count Result 364 k/mm3 (150-375); Red Blood Count 5.14 M/mm3 (4.2-5.4); Red Cell Distribution Width 13.7 % (11.5-14.5); White Blood Count 15.4 K/mm3 (4.5-10.0)
[2025-01-10 04:49] LABS: Anion Gap 13 mmol/L (4-12); Blood Urea Nitrogen 20 mg/dL (7-17); Calcium 8.5 mg/dL (8.4-10.2); Carbon Dioxide 18 mmol/L (22-30); Chloride 106 mmol/L (98-107); Estimated CRCL calculation 149 ml/min; Estimated Glomerular Filt Rate > 60; Glucose 120 mg/dL (65-110); Lactic Acid Reflex 1.4 mmol/L (0.7-2.0); Potassium 4.3 mmol/L (3.4-5.0); Sodium 137 mmol/L (137-145)
[2025-01-10 05:26] VITALS: BP 167/69; PULSE 126; RESP 18; TEMP 36.6; O2SAT 100
--- NOTE | 2025-01-10 07:56 | P.PNIM_ITS ---
Progress Note: A&P Assessment and Plan (1) Gastroenteritis: Code(s): K52.9 - Noninfective gastroenteritis and colitis, unspecified Status: Acute Assessment and Plan: Likely viral deferring antibiotics at this time CT shows no acute process Leukocytosis improving Stool cultures pending (2) Dehydration: Code(s): E86.0 - Dehydration Status: Acute Assessment and Plan: IV fluids for hydration Courage oral intake (3) Polycythemia due to fall in plasma volume: Code(s): D75.1 - Secondary polycythemia Status: Acute Assessment and Plan: Could be due to dehydration Improved this morning on a.m. labs (4) Lactic acidosis: Code(s): E87.20 - Acidosis, unspecified Status: Acute Assessment and Plan: Resolved this morning (5) Leukocytosis: Qualifiers: Leukocytosis type: unspecified Qualified Code(s): D72.829 - Elevated white blood cell count, unspecified Code(s): D72.829 - Elevated white blood cell count, unspecified Status: Acute Assessment and Plan: Trended down AM labs Blood cultures pending Stool cultures pending No indication for IV antibiotics at this time Plan Time Spent With Patient Time with patient: Greater than 35 minutes Subjective Date/time seen: 01/10/25 07:56 Interval history: 39-year-old female with past medical history of POTS, morbid obesity, essential hypertension, anxiety, depression, prior cholecystectomy, hysterectomy, irritable bowel syndrome and GERD who presented to the ER via EMS with nausea, vomiting and diarrhea. Patient states that she feels a little better and thinks she is ready for clear liquid diet. Review of Systems Review of Systems: 12 systems were reviewed with pertinent positives and negatives per HPI. Except as documented in the HPI, all other systems were reviewed and are negative. Exam Narrative: General: well appearing, appears stated age. HEENT: normocephalic, atraumatic. Mucous membranes moist. EOMI, PERRLA, bilateral sclera anicteric, no conjunctival injection. Neck supple without JVD, lymphadenopathy, or bruit. Respiratory: clear to ascultation bilaterally. No rales/rhonic/wheezes. Cardiovascular: Regular rate and rhythm, normal S1-S2 upon ascultation. No murmurs, rubs, or clicks. PMI is nondisplaced, capillary refill less than 3 second. Abdomen: Soft, round, no pulsatile masses, nondistended and nontender. No rebound, no guarding. No CVA tenderness, no hepatosplenomegaly. Bowel sounds present to all four quadrants. No high pitch or tinkling sounds, resonant to percussion. Extremities: No cyanosis, clubbing, or edema present. Pulses are palpable 2/2. Active ROM to all four extremities. Neuro: Alert and orientated x 4. PERRLA. Cranial nerves 2-12 intact without fo favian deficit. Skin: Warm, dry, and intact, without rash, erythema, or lesion. Psych: pleasant, cooperative, normal speech, normal affect, no hallucinations, no dysarthia Objective Data Vital Signs Vital Signs: Vital Signs - 24 hr 01/09/25 17:10 01/09/25 20:00 01/09/25 20:01 Temperature 97.4 F L Pulse Rate 112 H 98 99 Respiratory Rate 25 H 20 20 Blood Pressure 157/130 H 143/93 H 143/93 H Pulse Oximetry 100 97 97 Oxygen Delivery Room Air 01/09/25 21:45 01/09/25 22:00 01/09/25 22:30 Temperature 97.9 F Pulse Rate 100 99 Respiratory Rate 19 18 Blood Pressure 145/82 H 142/58 H Pulse Oximetry 99 99 Oxygen Delivery Room Air 01/10/25 05:26 Temperature 97.8 F Pulse Rate 126 H Respiratory Rate 18 Blood Pressure 167/69 H Pulse Oximetry 100 Oxygen Delivery Intake/Output Intake/Output: Intake & Output 01/07/25 01/08/25 01/09/25 01/10/25 23:59 23:59 23:59 23:59 Intake Total 2256.3 993.7 Balance 2256.3 993.7 Meds/Results Medications: Active Medications Generic Name Dose Route Start Last Admin Trade Name Freq PRN Reason Stop Dose Admin Acetaminophen 650 mg 01/09/25 21:13 Acetaminophen 325 Mg Tablet PO Q4H PRN Mild Pain (1-3) or Fever Albuterol 2 puff 01/10/25 00:44 Albuterol Sulfate (*Sp) Aerosol 1 Puff INHALATION Q4H PRN shortness of breath or wheezing Buspirone HCl 30 mg 01/10/25 09:00 Buspirone Hcl 10 Mg Tablet PO Q12HR [facility] Dextrose 12.5 gm 01/09/25 21:13 Dextrose 50% 25 Gm/50 Ml Syringe IV PUSH PRN PRN Hypoglycemia Protocol Dicyclomine HCl 20 mg 01/09/25 21:13 Dicyclomine Hcl Inj 20 Mg/2 Ml Vial IM Q6H PRN Abdominal Cramping Enoxaparin Sodium 40 mg 01/10/25 09:00 Enoxaparin 40 Mg/0.4 Ml Syringe SUB-Q DAILY TUNDE Glucagon 1 mg 01/09/25 21:13 Glucagon For Inj 1 Mg Vial IM PRN PRN Hypoglycemia Protocol Glucose 15 gm 01/09/25 21:13 Glucose Oral Gel 15 Gm Of Glucse In 37.5 Gm Tube PO PRN PRN Hypoglycemia Protocol Sodium Chloride 1,000 mls @ 150 mls/hr 01/09/25 20:40 01/10/25 04:33 Normal Saline Iv IV CONT 150 mls/hr .Q6H40M TUNDE Administration Dextrose 1,000 mls @ 100 mls/hr 01/09/25 21:13 Dextrose 5% 1,000 Ml IVPB PRN PRN Hypoglycemia Protocol Lisinopril 20 mg 01/10/25 09:00 Lisinopril 20 Mg Tablet PO QAM [facility] Loratadine 10 mg 01/10/25 09:00 [facility]ine [facility]rolol Succinate 25 mg 01/10/25 09:00 Metoprolol Succinate Ext Rel 25 Mg Tabcr PO DAILY [facility] Ondansetron HCl 4 mg 01/09/25 21:13 01/10/25 02:12 Ondansetron Inj 4 Mg/2 Ml Vial IV PUSH 4 mg Q4H PRN Administration Nausea Pantoprazole Sodium 40 mg 01/10/25 09:00 Pantoprazole Sodium Iv 40 Mg Vial IV PUSH Q12HR [facility] Promethazine HCl 25 mg 01/10/25 00:42 Promethazine Hcl 25 Mg/Ml Ampul IM Q4H PRN Intractable nausea vomiting Sertraline HCl 100 mg 01/10/25 01:05 01/10/25 01:16 Sertraline Hcl 50 Mg Tablet PO 100 mg HS [facility] Administration Venlafaxine HCl 75 mg 01/10/25 17:00 Venlafaxine Hcl Xr 75 Mg Cap.Er.24h PO DAILY@1700 [facility] Radiology Results: ITS Impressions Chest X-Ray 01/09/25 17:50 IMPRESSION: No acute cardiopulmonary pathology. Abdomen/Pelvis CT 01/09/25 20:12 IMPRESSION: 1. No evidence of appendicitis, diverticulitis or intestinal obstruction. 2. Fat infiltration of the liver. Hepatomegaly. Labs Labs: Laboratory Results - last 24 hr 01/09/25 01/09/25 01/09/25 17:37 18:04 18:40 WBC 29.1 H RBC 6.21 H Hgb 17.2 H Hct 53.3 H MCV 85.8 MCH 27.7 MCHC 32.3 RDW 13.5 Plt Count 417 H MPV 9.4 Immature Gran % (Auto) Not Reportable Neut % (Auto) Not Reportable Lymph % (Auto) Not Reportable [place] % (Auto) Not Reportable Eos % (Auto) Not Reportable Baso % (Auto) Not Reportable Lymph # (Auto) Not Reportable [place] # (Auto) Not Reportable Eos # (Auto) Not Reportable Baso # (Auto) Not Reportable Abs Immat Gran (auto) Not Reportable Absolute Neuts (auto) Not Reportable Absolute Nucleated RBC Not Reportable Total Counted 100 Neutrophils % (Manual) 80 H Band Neutrophils % 4 Lymphocytes % (Manual) 12.0 L Monocytes % (Manual) 1 L Eosinophils % (Manual) 2 Basophils % (Manual) 1 Nucleated RBC % Not Reportable Abs Neuts (Manual) 24.44 H Abs Lymphs (Manual) 3.49 Abs Monocytes (Manual) 0.29 Absolute Eos (Manual) 0.58 H Abs Basophils (Manual) 0.29 H Platelet Estimate Increased Schistocytes None seen Sodium 138 Potassium 3.8 Chloride 102 Carbon Dioxide 12 L Anion Gap 24 H BUN 23 H Creatinine 0.81 Estim Creat Clear Calc 118 Estimated GFR > 60 Glucose 190 H Lactic Acid 4.7 H* Calcium 10.1 Magnesium 1.8 Total Bilirubin 0.7 AST 28 ALT 37 H Alkaline Phosphatase 155 H Troponin I < 0.012 Total Protein 9.0 H Albumin 5.2 H Lipase 71 Urine Color Dark yellow Urine Appearance Cloudy H Urine pH 5.5 Ur Specific [place] 1.031 Urine Protein 3+ H Urine Glucose (UA) Negative Urine Ketones 2+ H Ur Blood (Man) Negative Urine Nitrate Negative Urine Bilirubin Negative Urine Urobilinogen 1.0 Add Ur Microanalysis Reviewed Leukocyte Esterase Rfl Negative Urine RBC 3-5 H Urine WBC 0-5 Ur Squamous Epith Cells Few Urine Bacteria None seen Urine Casts 6-10 POC Urine HCG, Qual Negative C. difficile (PCR) Negative Influenza A (RT-PCR) Negative Influenza B (RT-PCR) Negative RSV (RT-PCR) Negative SARS-CoV-2 RNA (RT-PCR) Negative 01/09/25 01/10/25 20:44 04:33 WBC 15.4 H RBC 5.14 Hgb 14.6 Hct 44.5 MCV 86.6 MCH 28.4 MCHC 32.8 RDW 13.7 Plt Count 364 MPV 9.3 Immature Gran % (Auto) 0.7 H Neut % (Auto) 75.2 H Lymph % (Auto) 16.0 L [place] % (Auto) 6.0 Eos % (Auto) 1.8 Baso % (Auto) 0.3 Lymph # (Auto) 2.46 [place] # (Auto) 0.9 H Eos # (Auto) 0.3 Baso # (Auto) 0.0 Abs Immat Gran (auto) 0.11 H Absolute Neuts (auto) 11.6 H Absolute Nucleated RBC 0.000 Total Counted Neutrophils % (Manual) Band Neutrophils % Lymphocytes % (Manual) Monocytes % (Manual) Eosinophils % (Manual) Basophils % (Manual) Nucleated RBC % 0.0 Abs Neuts (Manual) Abs Lymphs (Manual) Abs Monocytes (Manual) Absolute Eos (Manual) Abs Basophils (Manual) Platelet Estimate Schistocytes Sodium 136 L 137 Potassium 4.1 4.3 Chloride 106 106 Carbon Dioxide 16 L 18 L Anion Gap 14 H 13 H BUN 23 H 20 H Creatinine 0.61 L 0.62 L Estim Creat Clear Calc 154 149 Estimated GFR > 60 > 60 Glucose 99 120 H Lactic Acid 2.4 H 1.4 Calcium 8.7 8.5 Magnesium Total Bilirubin AST ALT Alkaline Phosphatase Troponin I Total Protein Albumin Lipase Urine Color Urine Appearance Urine pH Ur Specific [place] Urine Protein Urine Glucose (UA) Urine Ketones Ur Blood (Man) Urine Nitrate Urine Bilirubin Urine Urobilinogen Add Ur Microanalysis Leukocyte Esterase Rfl Urine RBC Urine WBC Ur Squamous Epith Cells Urine Bacteria Urine Casts POC Urine HCG, Qual C. difficile (PCR) Influenza A (RT-PCR) Influenza B (RT-PCR) RSV (RT-PCR) SARS-CoV-2 RNA (RT-PCR) Quality VTE Prophylaxis VTE prophylaxis: pharmacologic ordered (Lovenox 40 mg subQ daily.) Hospitalist MIPS Advance Care Plan I have confirmed that the patient's Advanced Care Plan is present, code status is documented, or surrogate decision maker is listed in patient medical record.: Yes Medication Reconciliation I have utilized all available resources to obtain, update and review the patients current medications (includes all prescriptions, OTC, herbals, cannabis, and nutritional supplements).: Yes
[2025-01-10] MEDS: lisinopriL 20 MG TABLET PO (08:12)
[2025-01-10 08:13] VITALS: PULSE 111
[2025-01-10] MEDS: METOPROLOL SUCCINATE EXT REL 25 MG TABCR PO (08:13)
[2025-01-10] MEDS: LORATADINE 10 MG TABLET PO (08:13)
[2025-01-10] MEDS: PANTOPRAZOLE SODIUM IV 40 MG VIAL IV PUSH (08:13)
[2025-01-10] MEDS: busPIRone HCL 10 MG TABLET 30 MG PO (08:13)
[2025-01-10] MEDS: ENOXAPARIN 40 MG/0.4 ML SYRINGE SUB-Q (08:13)
--- NOTE | 2025-01-10 13:32 | P.DS_ITS ---
DS: Admitting Diagnosis Discharge Date 01/10/2025 Admitting Diagnosis Diarrhea DS: Discharge Diagnosis Discharge Diagnosis (1) Gastroenteritis: Code(s): K52.9 - Noninfective gastroenteritis and colitis, unspecified Status: Acute Assessment and Plan: Likely viral deferring antibiotics at this time CT shows no acute process Leukocytosis improving Stool cultures pending (2) Dehydration: Code(s): E86.0 - Dehydration Status: Acute Assessment and Plan: Resolved Courage oral intake (3) Polycythemia due to fall in plasma volume: Code(s): D75.1 - Secondary polycythemia Status: Acute Assessment and Plan: Could be due to dehydration Improved this morning on a.m. labs (4) Lactic acidosis: Code(s): E87.20 - Acidosis, unspecified Status: Acute Assessment and Plan: Resolved this morning (5) Leukocytosis: Qualifiers: Leukocytosis type: unspecified Qualified Code(s): D72.829 - Elevated white blood cell count, unspecified Code(s): D72.829 - Elevated white blood cell count, unspecified Status: Acute Assessment and Plan: Trended down AM labs Blood cultures pending Stool cultures pending No indication for IV antibiotics at this time Plan DS: Summary Hospital Course Reason for hospitalization: Dehydration Hospital Course: 39-year-old female with past medical history of POTS, morbid obesity, essential hypertension, anxiety, depression, prior cholecystectomy, hysterectomy, irritable bowel syndrome and GERD who presented to the ER via EMS with nausea, vomiting and diarrhea that started today just a few hours prior to arriving to the ER. See H&P for details. Stool sample is negative for C diff. CT abdomen pelvis shows no acute disease. Due to severe dehydration patient had a ALISIA and lactic acidosis which resolved with IV fluids. Patient's UA was negative for infection. Patient was diagnosed with viral gastroenteritis. Patient states that she is able to tolerate liquids and solids, and her diarrhea has improved. She wishes to go home when she is stable to do so. Status at Discharge Functional status at discharge: independent ambulation Time Spent with Patient Time attestation: Total time spent providing and/or coordinating discharge services: Exam Narrative: General: well appearing, appears stated age. HEENT: normocephalic, atraumatic. Mucous membranes moist. EOMI, PERRLA, bilateral sclera anicteric, no conjunctival injection. Neck supple without JVD, lymphadenopathy, or bruit. Respiratory: clear to ascultation bilaterally. No rales/rhonic/wheezes. Cardiovascular: Regular rate and rhythm, normal S1-S2 upon ascultation. No murmurs, rubs, or clicks. PMI is nondisplaced, capillary refill less than 3 second. Abdomen: Soft, round, no pulsatile masses, nondistended and nontender. No rebound, no guarding. No CVA tenderness, no hepatosplenomegaly. Bowel sounds present to all four quadrants. No high pitch or tinkling sounds, resonant to percussion. Extremities: No cyanosis, clubbing, or edema present. Pulses are palpable 2/2. Active ROM to all four extremities. Neuro: Alert and orientated x 4. PERRLA. Cranial nerves 2-12 intact without focal deficit. Skin: Warm, dry, and intact, without rash, erythema, or lesion. Psych: pleasant, cooperative, normal speech, normal affect, no hallucinations, no dysarthia DS: Data Data Completed and Pending Labs on day of discharge: Labs from last 24 hours 01/10/25 01/09/25 01/09/25 04:33 20:44 18:40 WBC 15.4 H RBC 5.14 Hgb 14.6 Hct 44.5 MCV 86.6 MCH 28.4 MCHC 32.8 RDW 13.7 Plt Count 364 MPV 9.3 Immature Gran % (Auto) 0.7 H Neut % (Auto) 75.2 H Lymph % (Auto) 16.0 L [place] % (Auto) 6.0 Eos % (Auto) 1.8 Baso % (Auto) 0.3 Lymph # (Auto) 2.46 [place] # (Auto) 0.9 H Eos # (Auto) 0.3 Baso # (Auto) 0.0 Abs Immat Gran (auto) 0.11 H Absolute Neuts (auto) 11.6 H Absolute Nucleated RBC 0.000 Total Counted Neutrophils % (Manual) Band Neutrophils % Lymphocytes % (Manual) Monocytes % (Manual) Eosinophils % (Manual) Basophils % (Manual) Nucleated RBC % 0.0 Abs Neuts (Manual) Abs Lymphs (Manual) Abs Monocytes (Manual) Absolute Eos (Manual) Abs Basophils (Manual) Platelet Estimate Schistocytes Sodium 137 136 L Potassium 4.3 4.1 Chloride 106 106 Carbon Dioxide 18 L 16 L Anion Gap 13 H 14 H BUN 20 H 23 H Creatinine 0.62 L 0.61 L Estim Creat Clear Calc 149 154 Estimated GFR > 60 > 60 Glucose 120 H 99 Lactic Acid 1.4 2.4 H Calcium 8.5 8.7 Magnesium Total Bilirubin AST ALT Alkaline Phosphatase Troponin I Total Protein Albumin Lipase Urine Color Urine Appearance Urine pH Ur Specific [place] Urine Protein Urine Glucose (UA) Urine Ketones Ur Blood (Man) Urine Nitrate Urine Bilirubin Urine Urobilinogen Add Ur Microanalysis Leukocyte Esterase Rfl Urine RBC Urine WBC Ur Squamous Epith Cells Urine Bacteria Urine Casts POC Urine HCG, Qual Negative C. difficile (PCR) Influenza A (RT-PCR) Influenza B (RT-PCR) RSV (RT-PCR) SARS-CoV-2 RNA (RT-PCR) 01/09/25 01/09/25 18:04 17:37 WBC 29.1 H RBC 6.21 H Hgb 17.2 H Hct 53.3 H MCV 85.8 MCH 27.7 MCHC 32.3 RDW 13.5 Plt Count 417 H MPV 9.4 Immature Gran % (Auto) Not Reportable Neut % (Auto) Not Reportable Lymph % (Auto) Not Reportable [place] % (Auto) Not Reportable Eos % (Auto) Not Reportable Baso % (Auto) Not Reportable Lymph # (Auto) Not Reportable [place] # (Auto) Not Reportable Eos # (Auto) Not Reportable Baso # (Auto) Not Reportable Abs Immat Gran (auto) Not Reportable Absolute Neuts (auto) Not Reportable Absolute Nucleated RBC Not Reportable Total Counted 100 Neutrophils % (Manual) 80 H Band Neutrophils % 4 Lymphocytes % (Manual) 12.0 L Monocytes % (Manual) 1 L Eosinophils % (Manual) 2 Basophils % (Manual) 1 Nucleated RBC % Not Reportable Abs Neuts (Manual) 24.44 H Abs Lymphs (Manual) 3.49 Abs Monocytes (Manual) 0.29 Absolute Eos (Manual) 0.58 H Abs Basophils (Manual) 0.29 H Platelet Estimate Increased Schistocytes None seen Sodium 138 Potassium 3.8 Chloride 102 Carbon Dioxide 12 L Anion Gap 24 H BUN 23 H Creatinine 0.81 Estim Creat Clear Calc 118 Estimated GFR > 60 Glucose 190 H Lactic Acid 4.7 H* Calcium 10.1 Magnesium 1.8 Total Bilirubin 0.7 AST 28 ALT 37 H Alkaline Phosphatase 155 H Troponin I < 0.012 Total Protein 9.0 H Albumin 5.2 H Lipase 71 Urine Color Dark yellow Urine Appearance Cloudy H Urine pH 5.5 Ur Specific [place] 1.031 Urine Protein 3+ H Urine Glucose (UA) Negative Urine Ketones 2+ H Ur Blood (Man) Negative Urine Nitrate Negative Urine Bilirubin Negative Urine Urobilinogen 1.0 Add Ur Microanalysis Reviewed Leukocyte Esterase Rfl Negative Urine RBC 3-5 H Urine WBC 0-5 Ur Squamous Epith Cells Few Urine Bacteria None seen Urine Casts 6-10 POC Urine HCG, Qual C. difficile (PCR) Negative Influenza A (RT-PCR) Negative Influenza B (RT-PCR) Negative RSV (RT-PCR) Negative SARS-CoV-2 RNA (RT-PCR) Negative Preliminary micro results at discharge 01/09/25 18:23 Blood Culture - Preliminary Blood Imaging Radiologist's impression: CT abdomen pelvis w con Ordering provider: Marsha Rashid PA-C History: 39 years Female with . lower abd pain, n/v/d . Comparison: None. Technique: CT abdomen and pelvis with IV and without oral contrast. Automated exposure control and iterative reconstruction technique were employed. The dose- length product was 1590.05 mGy-cm. 100 mL Omnipaque 350 was given IV Findings: VISUALIZED LOWER CHEST: Normal. UPPER ABDOMINAL ORGANS: Liver: Fat infiltration. Hepatomegaly. Gallbladder: Status post cholecystectomy Spleen: Normal. Stomach/duodenum: Normal. Pancreas: Normal. Adrenals: Normal. Kidneys: Normal. PELVIC ORGANS: The bladder is underfilled. BOWEL AND MESENTERY: Colon: No evidence of diverticulitis.. Normal appendix. Small Bowel: Normal. No obstruction. Peritoneum/mesentery: No free air or free fluid. No mesenteric lymphadenopathy. Small mesenteric lymph nodes noted. RETROPERITONEUM: Normal aorta. No retroperitoneal lymphadenopathy. MUSCULOSKELETAL: Superficial soft tissues: The superficial soft tissues are normal. Bones: Normal spine. IMPRESSION: 1. No evidence of appendicitis, diverticulitis or intestinal obstruction. 2. Fat infiltration of the liver. Hepatomegaly. Discharge Plan Discharge Discharging Clinician: Suzy Maya Anticipated Discharge Date/Time: 01/10/25 13:34 Patient Disposition: Home Activity: may shower Diet: as tolerated Discharge Instructions: Discharge instructions: Take medications as prescribed New medications prescribed: Zofran for nausea You are activity as tolerated Monitor blood pressures Avoid social areas, you wear a mask when in social settings Encouraged to continue with yearly vaccinations Return to the emergency department if he developed sudden shortness of breath, chest pain, nausea, vomiting, upset stomach or intractable diarrhea Return to the emergency department if you develop fever greater than 101.5 Follow-up with: Your primary care physician within 1-2 weeks for post hospitalization check up Thank you for choosing [facility] for your healthcare needs Patient Instructions: Antibiotic Form, Dehydration (DC), Gastroenteritis (DC) Patient Language: Congolese Stand Alone Forms: General Discharge Information Follow-up/Referrals: SOFIYA,SHANTANU BRYANT [Primary Care Provider] - 2 Weeks Discharge Medications: New ondansetron 4 mg tablet,disintegrating 4 mg PO Q8H PRN (Reason: nausea and vomiting) Qty: 10 0RF Continued albuterol sulfate 90 mcg/actuation HFA aerosol inhaler 2 puff INHALATION PRN PRN (Reason: shortness of breath or wheezing) lisinopril-hydrochlorothiazide 20-12.5 mg tablet 1 tablet PO DAILY buspirone 30 mg tablet 30 mg PO Q12H sertraline 100 mg tablet 100 mg PO HS venlafaxine 75 mg capsule,extended release 24hr 75 mg PO QPM metoprolol succinate 25 mg tablet extended release 24 hr 25 mg PO DAILY pantoprazole [Protonix] [address] for susp in packet 40 mg PO DAILY cetirizine [24Hour Allergy] 10 mg tablet 10 mg PO DAILY Date of admission: 01/09/25 21:13 Primary Care Provider: RAMESHANNETTE Admitting Provider: Chayito Lemons Attending physician on admission: Chayito Lemons Condition: Stable Quality VTE Prophylaxis VTE prophylaxis: pharmacologic ordered (Lovenox 40 mg subQ daily.) Hospitalist MIPS Heart Failure (Exclusion) Patient has history of Heart Transplant or Left Ventricular Assistive Device?: No IF YES, STOP HERE Heart Failure (Qualifier) Patient has current or prior documentation of LVEF less than or equal to 40%, or mod/servere depressed LVSF?: No IF NO, STOP HERE
[2025-01-10 13:55] VITALS: BP 137/71; PULSE 100; RESP 18; TEMP 36.8; O2SAT 100
== END 2025-01-10 15:30 | disposition home or self-care (01) ==
LOC: ANHED 21:28 → ANH2MED 21:36
PROVIDERS: Admitting Provider Internal Medicine; Emergency Provider Physician Assistant; PCP Nurse Practitioner Family; Visit Provider Internal Medicine
DX: A08.4 Viral intestinal infection, unspecified (principal); N17.9 Acute kidney failure, unspecified; E86.0 Dehydration; D75.1 Secondary polycythemia; E87.20 Acidosis, unspecified; D72.829 Elevated white blood cell count, unspecified; G90.A Postural orthostatic tachycardia syndrome [POTS]; J45.20 Mild intermittent asthma, uncomplicated; E66.01 Morbid (severe) obesity due to excess calories; Z68.41 Body mass index [BMI] 40.0-44.9, adult; I10 Essential (primary) hypertension; F41.9 Anxiety disorder, unspecified; F32.A Depression, unspecified; K21.9 Gastro-esophageal reflux disease without esophagitis; K58.9 Irritable bowel syndrome, unspecified; G47.33 Obstructive sleep apnea (adult) (pediatric); G43.909 Migraine, unspecified, not intractable, without status migrainosus; Z20.822 Contact with and (suspected) exposure to COVID-19; Z79.51 Long term (current) use of inhaled steroids; Z79.899 Other long term (current) drug therapy; Z87.442 Personal history of urinary calculi; Z90.49 Acquired absence of other specified parts of digestive tract; Z90.710 Acquired absence of both cervix and uterus
CPT/HCPCS: 36415; 71045; 74177; 80048; 80053; 81001; 81025; 83605; 83690; 83735; 84484; 85025; 87040; 87045; 87427; 87449; 87493; 87637; 93005; 96361; 96365; 96372; 96375; 96376; 99285; A9270; G0378; J1650; J2405; J2470; J2550; J3475; J7030; Q9967